=== PATIENT | female | born 1990 | race Two or more races ===

== ENCOUNTER 2016-09-26 15:13 | Outpatient (CLI) | payer MEDICAID ==
--- NOTE | 2016-09-26 16:01 | L&D Flow Sheet ---
LD Flowsheet Datetime Report Generated by CPN: 09/26/2016 16:00 Datetime: 09/26/2016 15:57 Vital Signs NBP Sys/Raya/Mean (mmHg): 123 (QS system process) : 68 (QS system process) : 90 (QS system process) Pulse: 82 (QS system process) Datetime: 09/26/2016 15:42 Vital Signs NBP Sys/Raya/Mean (mmHg): 132 (QS system process) : 83 (QS system process) : 102 (QS system process) Pulse: 89 (QS system process)
[2016-09-26 16:02] LABS: ABSOLUTE EOSINOPHILS # (AUTO) 0.1 10^3/uL (0.0-0.6); ABSOLUTE LYMPHOCYTES (AUTO) 1.8 10^3/uL (0.5-4.7); ABSOLUTE MONOCYTES (AUTO) 0.7 10^3/uL (0.1-1.4); BASOPHILS % (AUTO) 0.2 % (0-2); EOSINOPHILS % (AUTO) 1.2 % (0-6); HEMATOCRIT 32.6 % (36.0-47.0); HEMOGLOBIN 11.4 g/dL (12.0-15.5); HGB HCT DIFFERENCE 1.6; LYMPHOCYTES % (AUTO) 20.8 % (13-45); MEAN CORPUSCULAR HEMOGLOBIN 31.7 pg (27.0-33.4); MEAN CORPUSCULAR HGB CONC 34.9 g/dL (32.0-36.0); MEAN CORPUSCULAR VOLUME 91 fl (80-97); MONOCYTES % (AUTO) 8.1 % (3-13); RED BLOOD COUNT 3.59 10^6/uL (3.72-5.28); RED CELL DISTRIBUTION WIDTH 13.6 % (11.5-14.0); SEGMENTED NEUTROPHILS % (AUTO) 69.7 % (42-78); WHITE BLOOD COUNT 8.6 10^3/uL (4.0-10.5)
[2016-09-26 16:02] LABS: APPEARANCE,URINE CLOUDY; BILIRUBIN,URINE NEGATIVE (NEGATIVE); GLUCOSE, URINE NEGATIVE (NEGATIVE); KETONES,URINE NEGATIVE (NEGATIVE); LEUKOCYTE ESTERASE,URINE MODERATE (NEGATIVE); NITRITE,URINE NEGATIVE (NEGATIVE); PROTEIN,URINE NEGATIVE (NEGATIVE); URINE SPECIFIC GRAVITY 1.008; UROBILINOGEN,URINE NEGATIVE mg/dL (<2.0)
[2016-09-26 16:16] LABS: ALANINE AMINOTRANSFERASE 29 U/L (9-52); ALBUMIN 3.4 g/dL (3.5-5.0); ALKALINE PHOSPHATASE 158 U/L (38-126); ANION GAP 10 (5-19); ASPARTATE AMINO TRANSFERASE 22 U/L (14-36); BILIRUBIN,TOTAL 0.6 mg/dL (0.2-1.3); BLOOD UREA NITROGEN 11 mg/dL (7-20); CALCIUM 8.7 mg/dL (8.4-10.2); CARBON DIOXIDE 19 mmol/L (22-30); CHLORIDE 107 mmol/L (98-107); CREATININE RESULT 0.52 mg/dL (0.52-1.25); GLUCOSE 112 mg/dL (75-110); LDH 373 U/L (313-618); POTASSIUM 3.8 mmol/L (3.6-5.0); SODIUM 136.1 mmol/L (137-145); TOTAL PROTEIN 6.4 g/dL (6.3-8.2); URIC ACID 5.8 mg/dL (2.5-6.2)
[2016-09-26 16:27] LABS: URINE BARBITURATES SCREEN NEGATIVE; URINE METHADONE SCREEN NEGATIVE; URINE OPIATES LOW NEGATIVE; URINE PHENCYCLIDINE SCREEN NEGATIVE
== END 2016-09-26 17:03 | disposition home or self-care (01) ==
LOC: LC 15:13
PROVIDERS: ATTEND Obstetrics & Gynecology
PROC: 4A1HXCZ Monitoring of Products of Conception, Cardiac Rate, External Approach (ICD-10-PCS; principal; 2016-09-26)
DX: O16.3 Unspecified maternal hypertension, third trimester (principal); Z3A.37 37 weeks gestation of pregnancy
CPT/HCPCS: 36415; 59025; 80053; 80307; 81005; 83615; 84550; 85025

== ENCOUNTER 2016-09-28 00:16 | Outpatient (CLI) | payer MEDICAID ==
[2016-09-28] MEDS ORDERED: MAG HYDROX/AL HYDROX/SIMETH SUSP 30 ML UDCUP PO ONE (01:30)
[2016-09-28] MEDS ORDERED: MAG HYDROX/AL HYDROX/SIMETH SUSP 30 ML UDCUP ONE (01:36)
[2016-09-28 01:50] LABS: APPEARANCE,URINE CLEAR; BILIRUBIN,URINE NEGATIVE (NEGATIVE); GLUCOSE, URINE NEGATIVE (NEGATIVE); KETONES,URINE NEGATIVE (NEGATIVE); LEUKOCYTE ESTERASE,URINE SMALL (NEGATIVE); NITRITE,URINE NEGATIVE (NEGATIVE); PROTEIN,URINE NEGATIVE (NEGATIVE); URINE SPECIFIC GRAVITY 1.006; UROBILINOGEN,URINE NEGATIVE mg/dL (<2.0)
[2016-09-28 02:05] LABS: URINE BARBITURATES SCREEN NEGATIVE; URINE METHADONE SCREEN NEGATIVE; URINE OPIATES LOW NEGATIVE; URINE PHENCYCLIDINE SCREEN NEGATIVE
--- NOTE | 2016-09-28 04:46 | L&D General Admission ---
General Admit Datetime Report Generated by CPN: 09/28/2016 04:45 INFORMATION Para: 2 (08/20/2016 16:00:Suni Bellavance, RNC) Baby, Number in Womb: 1 (08/20/2016 16:00:Suni Bellavance, RNC) CARE Height (in): 62 (09/28/2016 01:47:QS system process) Height (in): 62 (09/26/2016 15:56:QS system process) Height (in): 62 (09/26/2016 15:55:QS system process) Height (in): 62 (09/26/2016 15:40:QS system process) Height (in): 62 (09/26/2016 15:37:QS system process) Height (in): 63 (08/20/2016 15:48:QS system process) Height (in): 63 (08/20/2016 14:50:QS system process) ALLERGIES Medication Allergies: iodine (09/28/2016) (09/28/2016 01:46:QS system process) Medication Allergies: No Known Allergies (09/26/2016) (09/26/2016 15:36:QS system process) DEMOGRAPHICS Address: , [facility] [employer] [place] [address] (08/20/2016 12:51:QS system process) Zipcode: [address] (08/20/2016 12:51:QS system process) Home (08/20/2016 12:51:QS system process) Next of Kin Name: ROMA MINOR (08/20/2016 12:51:QS system process) Next of Kin (08/20/2016 12:51:QS system process) Next of Kin Relationship: MO (08/20/2016 12:51:QS system process) Episcopal: None (08/20/2016 12:51:QS system process) LABS Hemoglobin: 11.4 L (09/26/2016 15:55:QS system process) Hematocrit: 32.6 L (09/26/2016 15:55:QS system process) MCV: 91 (09/26/2016 15:55:QS system process)
--- NOTE | 2016-09-28 04:46 | Antepartum Discharge Summary ---
Antepartum DC Datetime Report Generated by CPN: 09/28/2016 04:45 DIET/ACTIVITY/RESTRICTIONS Diet: Regular (09/26/2016 16:59:Booker Ridge, RN) Activity: Normal Activity (09/26/2016 16:59:Booker Ridge, RN) Activity Restrictions: No Exercising (09/26/2016 16:59:Booker Ridge, RN) TEACHING/INSTRUCTIONS/REFERRALS Instructions Given To: pt (09/26/2016 16:59:Booker Ridge, RN) Instructions Understood: Patient Verbalized Understanding; Support Person Verbalized Understanding (09/26/2016 16:59:Booker Sabillon RN) Referrals: None (09/26/2016 16:59:Booker Sabillon RN) Educational Materials- Other: [employer] (09/26/2016 16:59:Booker Sabillon RN) DISCHARGE INFORMATION Discharged AMA: No (09/26/2016 16:59:Booker Sabillon RN) Discharge Date/Time: 09/26/2016 17:02 (09/26/2016 16:59:Booker Sabillon RN) Discharged To: Home (09/26/2016 16:59:Booker Sabillon RN) Discharge Provider Name: Victor Manuel (09/26/2016 16:59:Booker Sabillon RN) Accompanied By: family (09/26/2016 16:59:Booker Sabillon RN) Discharge Method: Ambulatory (09/26/2016 16:59:Booker Sabillon RN) Condition: Stable (09/26/2016 16:59:Booker Sabillon RN) FOLLOW UP INFORMATION Follow Up With: [facility] (09/26/2016 16:59:Booker Sabillon RN) Follow Up On: As Scheduled (09/26/2016 16:59:Booker Sabillon RN) Follow Up Phone Number: [facility] - (09/26/2016 16:59:Booker Sabillon RN) Comments: Pt discharged home ambulatory in no distress, no complaints noted, seed cleaner agrees with discharge. Understands to keep appointment Friday as scheduled, s/s to report, when to return to hospital for evaluation. (09/26/2016 16:59:Booker Sabillon RN) GENERAL INSTR-CALL PROVIDER IF: Contractions: Contractions or cramps become more frequent than 8 in one hour or 4 in 20 minutes; Regular painful contractions every 5 minutes or less for one hour. Time your contractions from the beginning of one to the beginning of the next (09/26/2016 16:59:Booker Sabillon RN) Pressure: Pressure in your vagina or lower abdomen that may feel like the baby is pushing down (09/26/2016 16:59:Booker Sabillon RN) Period Like Cramps: Period-like cramps or low dull backache that may come and go (09/26/2016 16:59:Booker Sabillon RN) Cramps/Diarrhea: Abdominal cramps that may be accompanied by diarrhea (09/26/2016 16:59:Booker Sabillon RN) Gush of Fluid/Blood: Gush of fluid or blood from your vagina (it is normal to have spotting after vaginal exam or intercourse) (09/26/2016 16:59:Booker Sabillon RN) Vaginal Discharge: Change in the type or amount of vaginal discharge (09/26/2016 16:59:Booker Sabillon RN) Decreased Movement: Your baby is not moving as much as usual- 4 movements in 1 hour after drinking and resting on side (09/26/2016 16:59:Booker Sabillon RN) Temperature: Temperature greater than 100.0(F) orally (09/26/2016 16:59:Booker Sabillon RN) Hypertension Signs/Symptoms: Severe headache which is not relieved 30 minutes after taking Tylenol(Acetaminophen); Blurry vision or spots before your eyes; Severe heartburn or pain on the upper right side of your abdomen that is not relieved by an antacid; Increased swelling in your face, hands or feet (09/26/2016 16:59:Booker Sabillon RN) Urinary Output: Decreased urinary output or dark colored urine (09/26/2016 16:59:Booker Sabillon RN) ADDITIONAL INSTRUCTIONS N/V [place]/Crackers: Keep dry toast/crackers with you to munch on (09/26/2016 16:59:Booker Sabillon RN) N/V Frequent Meals: Eat small frequent meals (09/26/2016 16:59:Booker Sabillon RN) N/V Empty Stomach: Try to keep something in your stomach (don't let your stomach get empty) (09/26/2016 16:59:Booker Sabillon RN) N/V Time Getting Up: Take your time getting up (09/26/2016 16:59:Booker Sabillon RN) N/V Avoid Smells: Avoid smells that make you feel sick (09/26/2016 16:59:Booker Sabillon RN) Travel Seatbelts: Wear seatbelts or safety/lap belts (09/26/2016 16:59:Booker Sabillon RN) Travel Walk Frequently: Walk frequently, every 1-2 hours (09/26/2016 16:59:Booker Sabillon RN) Travel Comfort Clothes: Wear clothing that does not constrict and comfortable shoes (09/26/2016 16:59:Booker Sabillon RN) Travel Light Snack: Keep a light snack (e.g. dry crackers) with you at all times to prevent nausea (09/26/2016 16:59:Booker Sabillon RN) Travel Hydration: Drink plenty of water, low sodium and noncaffeinated drinks (09/26/2016 16:59:Booker Sabillon RN) Travel Medications: DO NOT take any medication that is not approved by your physician first (09/26/2016 16:59:Booker Sabillon RN) Travel PN Records: Always keep a copy of your medical record with you just in case (09/26/2016 16:59:Booker Sabillon RN) Edema Avoid Standing: Avoid standing for long periods, keep legs up when you can (09/26/2016 16:59:Booker Sabillon RN) Edema Rest on Side: When resting, lie on your side (left is best) (09/26/2016 16:59:Booker Sabillon RN) Edema Limit Sodium: Limit the amount of salty foods you eat (09/26/2016 16:59:Booker Sabillon RN) Edema Support Hose: Try to wear support hose as much as possible (09/26/2016 16:59:Booker Sabillon RN) Exercise Overheating: Avoid situations that would cause you to become overheated (09/26/2016 16:59:Booker Sabillon RN) Exercise Weather: Exercise outdoors only if the weather is reasonable and not too hot (09/26/2016 16:59:Booker Sabillon RN) Exercise Exertion: Do not over exert yourself when you exercise (09/26/2016 16:59:Booker Sabillon RN) Exercise Hydration: Drink plenty of fluids, especially water (09/26/2016 16:59:Booker Sabillon RN) Exercise Support: Wear good support hose, bra and shoes when exercising (09/26/2016 16:59:Booker Sabillon RN) Varicose Veins Instructions: Do not stand for long periods of time (09/26/2016 16:59:Booker Sabillon RN) Varicose Veins Elevate Sit: Try to keep your legs elevated when you are sitting (09/26/2016 16:59:Booker Sabillon RN) Varicose Veins Elevate Lying: When lying down, keep your legs elevated (09/26/2016 16:59:Booker Sabillon RN) Varicise Veins Non Binding: When wearing stockings or socks, make sure they are not too tight and bind your legs (09/26/2016 16:59:Booker Sabillon RN) Varicose Veins Support: Wear support hose/stockings at all times (09/26/2016 16:59:Booker Sabillon RN) Varicose Veins Periodic Move: If you have a job where you sit a lot, get up periodically and walk around (09/26/2016 16:59:Booker Sabillon RN)
--- NOTE | 2016-09-28 04:46 | L&D Current Admission ---
Current Admit Datetime Report Generated by CPN: 09/28/2016 04:45 ADMISSION INFORMATION Chief Complaint: Contractions (09/28/2016 00:35:Jordyn Medina RN) Chief Complaint: PIH workup from provider office (09/26/2016 16:06:Mesha Parham RN)
--- NOTE | 2016-09-28 04:46 | L&D Discharge Summary ---
OB Discharge Summary Datetime Report Generated by CPN: 09/28/2016 04:45 DISCHARGE DIAGNOSIS Diagnosis/Symptoms: Other Diagnoses/Symptoms Other: Hypertension in Treatment/Procedures Other: Labwork Gestation: 38.5 Number of Babies in Womb: 1 Parity: 2 DIET/ACTIVITY/RESTRICTIONS Diet: Regular Activity: Normal Activity Activity Restrictions: No Exercising TEACHING/INSTRUCTIONS/REFERRALS Instructions Given To: pt Instructions Understood: Patient Verbalized Understanding; Support Person Verbalized Understanding Referrals: None Educational Materials- Other: [employer] DISCHARGE INFORMATION Discharged AMA: No Discharge Date/Time: 09/26/2016 17:02 Discharged To: Home Discharge Provider Name: Rush Accompanied By: family Discharge Method: Ambulatory Condition: Stable FOLLOW UP INFORMATION Follow Up With: [facility] Follow Up On: As Scheduled Follow Up Phone Number: [facility] - Comments: Pt discharged home ambulatory in no distress, no complaints noted, parts counter salesperson agrees with discharge. Understands to keep appointment [place] as scheduled, s/s to report, when to return to hospital for evaluation. GENERAL INSTR-CALL PROVIDER IF: Contractions: Contractions or cramps become more frequent than 8 in one hour or 4 in 20 minutes; Regular painful contractions every 5 minutes or less for one hour. Time your contractions from the beginning of one to the beginning of the next Pressure: Pressure in your vagina or lower abdomen that may feel like the baby is pushing down Period Like Cramps: Period-like cramps or low dull backache that may come and go Cramps/Diarrhea: Abdominal cramps that may be accompanied by diarrhea Gush of Fluid/Blood: Gush of fluid or blood from your vagina (it is normal to have spotting after vaginal exam or intercourse) Vaginal Discharge: Change in the type or amount of vaginal discharge Decreased Movement: Your baby is not moving as much as usual- 4 movements in 1 hour after drinking and resting on side Temperature: Temperature greater than 100.0(F) orally
--- NOTE | 2016-09-28 04:46 | L&D Admission Assessment ---
LD ADM ASMT Datetime Report Generated by CPN: 09/28/2016 04:45 PATIENT ASSESSMENT Assessment Type: Triage (09/28/2016 00:35:Jordyn Medina, RN) Assessment Type: Triage (09/26/2016 16:06:Mesha Dione, RN) WEIGHT Weight (lb): 178 (09/28/2016 01:47:QS system process) Weight (lb): 176 (09/26/2016 15:56:QS system process) Weight (lb): 176 (09/26/2016 15:55:QS system process) Weight (lb): 176 (09/26/2016 15:40:QS system process) Weight (lb): 176 (09/26/2016 15:37:QS system process) Weight (kg): 80.9 (09/28/2016 01:47:QS system process) Weight (kg): 80.0 (09/26/2016 15:56:QS system process) Weight (kg): 80.0 (09/26/2016 15:55:QS system process) Weight (kg): 80.0 (09/26/2016 15:40:QS system process) Weight (kg): 80.0 (09/26/2016 15:37:QS system process) BMI: 32.6 (09/28/2016 01:47:QS system process) BMI: 32.2 (09/26/2016 15:56:QS system process) BMI: 32.2 (09/26/2016 15:55:QS system process) BMI: 32.2 (09/26/2016 15:40:QS system process) BMI: 31.2 (09/26/2016 15:37:QS system process) PAIN Pain Scale: 2 (09/28/2016 00:35:Jordyn Medina RN) Pain Scale: 1 (09/26/2016 16:06:Mesha Parham RN) Pain Presence: Intermittent (09/28/2016 00:35:Jordyn Medina RN) Pain Presence: Constant (09/26/2016 16:06:Mesha Parham RN) Pain Type: Contraction (09/28/2016 00:35:Jordyn Medina RN) Pain Type: Burning (09/26/2016 16:06:Mesha Parham RN) Pain Location: Abdomen (09/28/2016 00:35:Jordyn Medina RN) Pain Location: Other (Annotations: burning with urination) (09/26/2016 16:06:Mesha Parham RN) Pain Goal: 1 (09/26/2016 16:06:Mesha Parham RN) Pain Related to Contraction: Yes (09/28/2016 00:35:Jordyn Medina RN) Pain Related to Contraction: No (09/26/2016 16:06:Mesha Parham RN) CONTRACTIONS Frequency (min): x1 (09/28/2016 02:21:Jordyn Medina RN) Frequency (min): rare (09/28/2016 02:21:Jordyn Medina RN) Frequency (min): rare (09/28/2016 01:30:Jordyn Medina RN) Frequency (min): rare (09/28/2016 01:01:Jordyn Medina RN) Frequency (min): constant, frequent, maybe every 1-2 minutes unsure (09/28/2016 00:35:Jordyn Medina RN) Frequency (min): none (09/26/2016 16:52:Mesha Parham RN) Duration (sec): 70 (09/28/2016 02:21:Jordyn Medina RN) Duration (sec): 80-90 (09/28/2016 02:21:Jordyn Medina RN) Duration (sec): 40-50 (09/28/2016 02:01:Jordyn Medina RN) Duration (sec): 50-70 (09/28/2016 01:30:Jordyn Medina RN) Duration (sec): 50-80 (09/28/2016 01:01:Jordyn Medina RN) Quality: Mild (09/28/2016 02:21:Jordyn Medina RN) Quality: Mild (09/28/2016 02:01:Jordyn Medina RN) Quality: Mild (09/28/2016 01:30:Jordyn Medina RN) Quality: Mild (09/28/2016 01:01:Jordyn Medina RN) Resting Tone Monon: Relaxed (09/28/2016 02:21:Jordyn Medina RN) Resting Tone Monon: Relaxed (09/28/2016 02:01:Jordyn Medina RN) Resting Tone Monon: Relaxed (09/28/2016 01:30:Jordyn Medina RN) Resting Tone Monon: Relaxed (09/28/2016 01:01:Jordyn Medina RN) Resting Tone Monon: Relaxed (09/26/2016 16:52:Mesha Parham RN) Contraction Comments: Patient denies feeling contractions; none noted (09/26/2016 16:52:Mesha Parham RN) VAGINAL EXAM Dilatation (cm): patient deferred drug screen stating that she felt better (09/28/2016 02:00:Jordyn Medina RN) Dilatation (cm): 2.0 (09/28/2016 00:38:Jordyn Medina RN) Effacement (%): 50 (09/28/2016 00:38:Jordyn Medina RN) Station: -2 (09/28/2016 00:38:Jordyn Medina RN) NEURO Level of Consciousness: Patient responds after multiple prompts. EMS states that they felt patient may be on drugs due to patients pinpoint pupils and the way patient talks. Slow speech, patient keeps eyes closed for most of interaction. (09/28/2016 00:35:Jordyn Medina RN) Level of Consciousness: Fully Conscious (09/26/2016 16:06:Mesha Parham RN) DTR's/Clonus: DTRs 2+; No Clonus (09/28/2016 00:35:Jordyn Medina RN) DTR's/Clonus: DTRs 2+; No Clonus (09/26/2016 16:06:Mesha Parham RN) Headache: Denies (09/28/2016 00:35:Jordyn Medina RN) Headache: Denies (09/26/2016 16:06:Mesha Parham RN) Dizziness: No (09/28/2016 00:35:Jordyn Medina RN) Dizziness: No (09/26/2016 16:06:Mesha Parham RN) Blurred Vision: No (Annotations: pupils are pinpoint on assessment) (09/28/2016 00:35:Jordyn Medina RN) Blurred Vision: Yes (Annotations: reports blurry vision earlier today @ 1400 but has since resolved) (09/26/2016 16:06:Mesha Parham RN) Extremity Numbness/Tingling : None (09/28/2016 00:35:Jordyn Medina RN) Extremity Numbness/Tingling : None (09/26/2016 16:06:Mesha Parham RN) Extremity Movement: Full Range of Motion (09/28/2016 00:35:Jordyn Medina RN) Extremity Movement: Full Range of Motion (09/26/2016 16:06:Mesha Parham RN) CARDIOVASCULAR Heart Rhythm: Regular (Annotations: normal s1s2 on auscultation with no evidence of murmur ) (09/28/2016 00:35:Jordyn Medina RN) Heart Rhythm: Regular (09/26/2016 16:06:Mesha Parham RN) Nailbeds: [place] (09/28/2016 00:35:Jordyn Medina RN) Nailbeds: [place] (09/26/2016 16:06:Mesha Parham RN) Capillary Refill: Less than 3 Seconds (09/28/2016 00:35:Jordyn Medina RN) Capillary Refill: Less than 3 Seconds (09/26/2016 16:06:Mesha Parham RN) Lower Extremities Edema: None (09/28/2016 00:35:Jordyn Medina RN) Lower Extremities Edema: None (09/26/2016 16:06:Mesha Parham RN) Lower Extremities Edema Degree: None (09/28/2016 00:35:Jordyn Medina RN) Lower Extremities Edema Degree: None (09/26/2016 16:06:Mesha Parham RN) Upper Extremities Edema: None (09/28/2016 00:35:Jordyn Medina RN) Upper Extremities Edema: None (09/26/2016 16:06:Mesha Parham RN) Upper Extremities Edema Degree: None (09/28/2016 00:35:Jordyn Medina RN) Upper Extremities Edema Degree: None (09/26/2016 16:06:Mesha Parham RN) Facial Edema: None (09/28/2016 00:35:Jordyn Medina RN) Facial Edema: None (09/26/2016 16:06:Mesha Parham RN) Deborah's Sign Left Leg: Negative (09/28/2016 00:35:Jordyn Medina RN) Deborah's Sign Left Leg: Negative (09/26/2016 16:06:Mesha Parham RN) Deborah's Sign Right Leg: Negative (09/28/2016 00:35:Jordyn Medina RN) Deborah's Sign Right Leg: Negative (09/26/2016 16:06:Mesha Parham RN) DVT RISK ASSESSMENT DVT Risk Age: Age less than 41 years (09/28/2016 00:35:Jordyn Medina RN) DVT Risk Age: Age less than 41 years (09/26/2016 16:06:Mesha Parham RN) DVT Risk BMI: BMI<31 (09/26/2016 16:06:Mesha Parham RN) DVT Risk Surgery: Laparoscopic Surgery (>60 minutes) (09/26/2016 16:06:Mesha Parham RN) DVT Risk Other: Women Only- or (<1 month) (09/26/2016 16:06:Mesha Parham RN) DVT Risk Total: 3 (09/26/2016 16:06:QS system process) DVT Risk Text: High Risk (20-40%)- Consider stockings, compresssion device, pharmacological therapy per hospital policy (09/26/2016 16:06:QS system process) RESPIRATORY Respiratory Effort: Unlabored; Regular Rhythm; Equal Expansion (09/28/2016 00:35:Jordyn Medina RN) Respiratory Effort: Unlabored; Regular Rhythm (09/26/2016 16:06:Mesha Parham RN) Breath Sounds, Left: Clear and Equal (09/28/2016 00:35:Jordyn Medina RN) Breath Sounds, Left: Clear and Equal (09/26/2016 16:06:Mesha Parham RN) Breath Sounds, Right: Clear and Equal (09/28/2016 00:35:Jordyn Medina RN) Breath Sounds, Right: Clear and Equal (09/26/2016 16:06:Mesha Parham RN) Cough Productivity: None (09/28/2016 00:35:Jordyn Medina RN) Cough Productivity: None (09/26/2016 16:06:Mesha Parham RN) GASTROINTESTINAL Nausea/Vomiting: Denies (09/28/2016 00:35:Jordyn Medina RN) Nausea/Vomiting: Denies (09/26/2016 16:06:Mesha Parham RN) Bowel Sounds: Normoactive; All Quadrants (09/28/2016 00:35:Jordyn Medina RN) Bowel Sounds: Normoactive; All Quadrants (09/26/2016 16:06:Mesha Parham RN) RUQ Epigastric Pain: Denies (09/28/2016 00:35:Jordyn Medina RN) RUQ Epigastric Pain: Denies (09/26/2016 16:06:Mseha Parham RN) Bowel Patterns: Soft, Formed Stool (09/28/2016 00:35:Jordyn Medina RN) Bowel Patterns: Soft, Formed Stool (09/26/2016 16:06:Mesha Parham RN) Hemorrhoids: None (09/28/2016 00:35:Jordyn Medina RN) Hemorrhoids: None (09/26/2016 16:06:Mesha Parham RN) Diet Type: Regular diet (09/28/2016 00:35:Jordyn Medina RN) Diet Type: Regular diet (09/26/2016 16:06:Mesha Parham RN) Last Meal: 09/27/2016 20:00 (09/28/2016 00:35:Jordyn Medina RN) Last Meal: 09/26/2016 15:30 (09/26/2016 16:06:Mesha Parham RN) GENITOURINARY Bladder: Nondistended (09/28/2016 00:35:Jordyn Medina RN) Bladder: Nondistended (09/26/2016 16:06:Mesha Parham RN) Frequency of Urination: No (09/28/2016 00:35:Jordyn Medina RN) Frequency of Urination: No (09/26/2016 16:06:Mesha Parham RN) Urination Burning: Yes (09/28/2016 00:35:Jordyn Medina RN) Urination Burning: Yes (09/26/2016 16:06:Mesha Parham RN) CVA Tenderness: No (09/28/2016 00:35:Jordyn Medina RN) CVA Tenderness: No (09/26/2016 16:06:Mesha Parham RN) Vaginal Bleeding: None (09/28/2016 00:35:Jordyn Medina RN) Vaginal Discharge Amount: Small (09/28/2016 00:35:Jordyn Medina RN) Vaginal Discharge Amount: None (09/26/2016 16:06:Mesha Parham RN) Vaginal Discharge Color: White (09/28/2016 00:35:Jordyn Medina RN) Vaginal Discharge Color: N/A (09/26/2016 16:06:Mesha Parham RN) Vaginal Discharge Odor: Non-Odorous (09/28/2016 00:35:Jordyn Medina RN) Vaginal Discharge Character: Thin (09/28/2016 00:35:Jordyn Medina RN) Vaginal Discharge Character: None (09/26/2016 16:06:Mesha Parham RN) INTEGUMENTARY Skin Color: Normal for Race (09/28/2016 00:35:Jordyn Medina RN) Skin Color: Normal for Race (09/26/2016 16:06:Mesha Parham RN) Skin Temperature: Warm (09/28/2016 00:35:Jordyn Medina RN) Skin Temperature: Warm (09/26/2016 16:06:Mesha Parham RN) Skin Moisture: Dry (09/28/2016 00:35:Jordny Medina RN) Skin Moisture: Dry (09/26/2016 16:06:Mesha Parham RN) Surgical Scars: appy scar (09/28/2016 00:35:Jordyn Medina RN) Body Piercings/Tattoos: tattoos- 5 piercings- belly button (09/28/2016 00:35:Jordyn Medina RN) NAYELI SKIN ASSESSMENT Nayeli Scale Sensory Perception: No Impairment- Responds to verbal commands. Has no sensory deficit which would limit ability to feel or voice pain or discomfort (09/28/2016 00:35:Jordyn Medina RN) Nayeli Scale Sensory Perception: No Impairment- Responds to verbal commands. Has no sensory deficit which would limit ability to feel or voice pain or discomfort (09/26/2016 16:06:Mesha Parham RN) Nayeli Scale Moisture: Rarely Moist- Skin is usually dry. Linen only requires changing at routine intervals (09/28/2016 00:35:Jordyn Medina RN) Nayeli Scale Moisture: Rarely Moist- Skin is usually dry. Linen only requires changing at routine intervals (09/26/2016 16:06:Mesha Parham RN) Nayeli Scale Activity: Walks Frequently- Walks outside the room at least twice a day and inside room at least every 2 hours during the day. (09/28/2016 00:35:Jordyn Medina RN) Nayeli Scale Activity: Walks Frequently- Walks outside the room at least twice a day and inside room at least every 2 hours during the day. (09/26/2016 16:06:Mesha Parham RN) Nayeli Scale Mobility: No Limitations- Makes major and frequent changes in position without assistance (09/28/2016 00:35:Jordyn Medina RN) Nayeli Scale Mobility: No Limitations- Makes major and frequent changes in position without assistance (09/26/2016 16:06:Mesha Parham RN) Nayeli Scale Nutrition: Excellent- Eats most of every meal. Never refuses a meal. Usually eats a total of 4 or more servings of meat and dairy products. Occasionally eats between meals. Does not require supplementation (09/28/2016 00:35:Jordyn Medina RN) Nayeli Scale Nutrition: Excellent- Eats most of every meal. Never refuses a meal. Usually eats a total of 4 or more servings of meat and dairy products. Occasionally eats between meals. Does not require supplementation (09/26/2016 16:06:Mesha Parham RN) Nayeli Scale Friction and Shear: No Apparent Problem- Moves in bed and in chair independently and has sufficient muscle strength to lift up completely during move. Maintains good position in bed or chair at all times (09/28/2016 00:35:Jordyn Medina RN) Nayeli Scale Friction and Shear: No Apparent Problem- Moves in bed and in chair independently and has sufficient muscle strength to lift up completely during move. Maintains good position in bed or chair at all times (09/26/2016 16:06:Mesha Parham RN) Nayeli Scale Total: 23 (09/28/2016 00:35:QS system process) Nayeli Scale Total: 23 (09/26/2016 16:06:QS system process) Nayeli Scale Risk: No Risk of Pressure Ulcer Noted at this Time (09/28/2016 00:35:QS system process) Nayeli Scale Risk: No Risk of Pressure Ulcer Noted at this Time (09/26/2016 16:06:QS system process) SUPPORT Family Support: Significant Other supportive, at bedside frequently (09/28/2016 00:35:Jordyn Medina RN) Family Support: Significant Other supportive, at bedside frequently; Family supportive (09/26/2016 16:06:Mesha Parham RN) Emotional State: Other (09/28/2016 00:35:Jordyn Medina RN) Emotional State: Calm/Relaxed (09/26/2016 16:06:Mesha Parham RN) SAFETY Call Cronin Within Reach: Yes (09/28/2016 00:35:Jordyn Medina RN) Call Cronin Within Reach: Yes (09/26/2016 16:06:Mesha Parham RN) Side Rails Up: Yes (09/28/2016 00:35:Jordyn Medina RN) Side Rails Up: Yes (09/26/2016 16:06:Mesha Parham RN) Bed Wheels Locked: Yes (09/28/2016 00:35:Jordyn Medina RN) Bed Wheels Locked: Yes (09/26/2016 16:06:Mesha Parham RN) Arm Bands Present: Yes (09/28/2016 00:35:Jordyn Medina RN) Arm Bands Present: Yes (09/26/2016 16:06:Mesha Parham RN) Isolation: [place] (09/28/2016 00:35:Jordyn Medina RN) Isolation: [place] (09/26/2016 16:06:Mesha Parham RN) FALL SCREEN Fall Risk History of Falling: (0) No (09/28/2016 00:35:Jordyn Medina RN) Fall Risk History of Falling: (0) No (09/26/2016 16:06:Mesha Parham RN) Fall Risk Secondary Diagnosis: (0) No (09/28/2016 00:35:Jordyn Medina RN) Fall Risk Secondary Diagnosis: (0) No (09/26/2016 16:06:Mesha Parham RN) Fall Risk Ambulatory Aid: (0) None/Bedrest/Wheelchair/Nurse Assist (09/28/2016 00:35:Jordyn Medina RN) Fall Risk Ambulatory Aid: (0) None/Bedrest/Wheelchair/Nurse Assist (09/26/2016 16:06:Mesha Parham RN) Fall Risk IV Therapy: (0) No (09/28/2016 00:35:Jordyn Medina RN) Fall Risk IV Therapy: (0) No (09/26/2016 16:06:Mesha Parham RN) Fall Risk Gait: (0) Normal/Bedrest/Immobile (09/28/2016 00:35:Jordyn Medina RN) Fall Risk Gait: (0) Normal/Bedrest/Immobile (09/26/2016 16:06:Mesha Parham RN) Fall Risk Mental Status: (0) Oriented to Own Ability (09/28/2016 00:35:Jordyn Medina RN) Fall Risk Mental Status: (0) Oriented to Own Ability (09/26/2016 16:06:Mesha Parham RN) Fall Risk Score: 0 (09/28/2016 00:35:QS system process) Fall Risk Score: 0 (09/26/2016 16:06:QS system process) Fall Risk Score Definition: No Risk: No action required (09/28/2016 00:35:QS system process) Fall Risk Score Definition: No Risk: No action required (09/26/2016 16:06:QS system process) RECENT TRAVEL/INFECTIOUS DISEASE Recent Exp Communicable Disease: No (09/28/2016 00:35:Jordyn Medina RN) Recent Exp Communicable Disease: No (09/26/2016 16:06:Mesha Parham RN) Cough or Fever: No (09/28/2016 00:35:Jordyn Medina RN) Cough or Fever: No (09/26/2016 16:06:Mesha Parham RN) Foreign Travel Past 10 Days: No (09/28/2016 00:35:Jordyn Medina RN) Foreign Travel Past 10 Days: No (09/26/2016 16:06:Mesha Parham RN) Open Wounds or Sores: No (09/28/2016 00:35:Jordyn Medina RN) Open Wounds or Sores: No (09/26/2016 16:06:Mesha Parham RN) Prior Antibiotic Resistance Tx: No (09/28/2016 00:35:Jordyn Medina RN) Prior Antibiotic Resistance Tx: No (09/26/2016 16:06:Mesha Parham RN) Cultures Obtained: Not Applicable (09/28/2016 00:35:Jordyn Medina RN) Cultures Obtained: Not Applicable (09/26/2016 16:06:Mesha Parham RN) Isolation Initiated: No (09/28/2016 00:35:Jordyn Medina RN) Isolation Initiated: No (09/26/2016 16:06:Mesha Parham RN) Pt/Family Education: Handwashing Hygiene (09/28/2016 00:35:Jordyn Medina RN) Pt/Family Education: Not Applicable (09/26/2016 16:06:Mesha Parham RN) BABY A FHR Baseline Rate (bpm) Baby A: 130 (09/28/2016 02:21:Jordyn Medina RN) FHR Baseline Rate (bpm) Baby A: 125 (09/28/2016 02:01:Jordyn Medina RN) FHR Baseline Rate (bpm) Baby A: 135 (09/28/2016 01:30:Jordyn Medina RN) FHR Baseline Rate (bpm) Baby A: 135 (09/28/2016 01:01:Jordyn Medina RN) FHR Baseline Rate (bpm) Baby A: 130 (09/26/2016 16:52:Mesha Parham RN) FHR Baseline Rate (bpm) Baby A: 135 (09/26/2016 16:06:Mesha Parham RN) Variability Baby A: Moderate 6-25 bpm (09/28/2016 02:21:Jordyn Medina RN) Variability Baby A: Moderate 6-25 bpm (09/28/2016 02:01:Jordyn Medina RN) Variability Baby A: Moderate 6-25 bpm (09/28/2016 01:30:Jordyn Medina RN) Variability Baby A: Moderate 6-25 bpm (09/28/2016 01:01:Jordyn Medina RN) Variability Baby A: Moderate 6-25 bpm (09/26/2016 16:52:Mesha Parham RN) Variability Baby A: Moderate 6-25 bpm (09/26/2016 16:06:Mesha Parham RN) Accelerations Baby A: 15X15 (09/28/2016 02:21:Jordyn Medina RN) Accelerations Baby A: 15X15 (09/28/2016 02:01:Jordyn Medina RN) Accelerations Baby A: 15X15 (09/28/2016 01:30:Jordyn Medina RN) Accelerations Baby A: 15X15 (09/28/2016 01:01:Jordyn Medina RN) Accelerations Baby A: 15X15 (09/26/2016 16:52:Mesha Parham RN) Accelerations Baby A: 15X15 (09/26/2016 16:06:Mesha Parham RN) Decelerations Baby A: None (09/28/2016 02:21:Jordyn Medina RN) Decelerations Baby A: None (09/28/2016 02:01:Jordyn Medina RN) Decelerations Baby A: None (09/28/2016 01:30:Jordyn Mdeina RN) Decelerations Baby A: None (09/28/2016 01:01:Jordyn Medina RN) Decelerations Baby A: None (09/26/2016 16:52:Mesha Parham RN) Decelerations Baby A: None (09/26/2016 16:06:Mesha Parham RN) ADDITIONAL COMMENTS Comments: On arrival from EMS patient was instructed to void in cup for a urine specimen. Patient mumbled something and then said okay. Patient then stated after exiting the bathroom that she forgot about peeing in the cup. Patient was provided with water to drink and encouraged to notify nurse when urge to void. Explained to patient that urine specimen was necessary to ensure that UTI was not worsening and that patient was well hydrated. Patient's speech and appearance are suspicious for questionable drug usage. Patient has history of buying Percocet off the street. Denies using drugs. (09/28/2016 00:35:Jordyn Medina RN)
--- NOTE | 2016-09-28 04:46 | L&D Flow Sheet ---
LD Flowsheet Datetime Report Generated by CPN: 09/28/2016 04:45 Datetime: 09/28/2016 02:28 Additional Nursing Comments: Discharged home in stable condition (Jordyn Medina, RN) Datetime: 09/28/2016 02:21 Monitor Mode: External; Palpation (Jordyn Medina RN) Frequency (min): x1 (Jordyn Medina RN) Frequency (min): rare (Jordyn Medina RN) Quality: Mild (Jordyn Kossmann, RN) Duration (sec): 70 (Jordyn Kossmann, RN) Duration (sec): 80-90 (Jordyn Kossmann, RN) Resting Tone (Palpate): Relaxed (Jordyn Medina, RN) Monitor Mode: External US (Jordyn Medina, RN) FHR Baseline Rate : 130 (Jordyn Diopsmann, RN) Variability: Moderate 6-25 bpm (Jordyn Kossmann, RN) Accelerations: 15X15 (Jordyn Kossmann, RN) Decelerations: None (Jordyn Chikissmann, RN) Datetime: 09/28/2016 02:20 Teaching Comments: Reviewed POC with patient and discussed at length kick counts and early labor signs. Patient is to followup on Friday. Patient states she already has an appointment. Patient appears to be more coherent during discussion than she was on arrival. (Jordynanand Medina, RN) Datetime: 09/28/2016 02:13 NBP Sys/Raya/Mean (mmHg): 126 (QS system process) : 88 (QS system process) : 101 (QS system process) Pulse: 83 (QS system process) LaborFlag: Antepartum (QS system process) Datetime: 09/28/2016 02:10 Communication Comments: Discussed POC with Dr. Wolf. DING aware of RN and EMS concerns that patient may have been taking medications not prescribed in pregancy due to patient speech, actions, and assessment. Patient has history of prescription drug abuse during . Reviewed negative drug screen, UA results, ctx pattern, and sve. Patient deferred second sve and stated she felt better. Orders received to discharge home but to have patient followup on Friday in the office. (Jordyn Medina RN) Datetime: 09/28/2016 02:01 Monitor Mode: External; Palpation (Jordyn Medina RN) Quality: Mild (Jordyn Medina RN) Duration (sec): 40-50 (Jordyn Medina RN) Resting Tone (Palpate): Relaxed (Jordyn Medina RN) Monitor Mode: External US (Jordyn Medina RN) FHR Baseline Rate : 125 (Jordyn Medina, RN) Variability: Moderate 6-25 bpm (Jordyn Medina, RN) Accelerations: 15X15 (Jordyn Medina, RN) Decelerations: None (Jordyn Medina, RN) Datetime: 09/28/2016 02:00 Dilatation (cm): patient deferred drug screen stating that she felt better (Jordyn Medina, DUNG) Datetime: 09/28/2016 01:53 NBP Sys/Raya/Mean (mmHg): 120 (QS system process) : 75 (QS system process) : 92 (QS system process) Pulse: 76 (QS system process) LaborFlag: Antepartum (QS system process) Datetime: 09/28/2016 01:37 Antiemetics/Antacids: Maalox PO (ml) @ (Annotations: 30ml po) (Jordyn Medina, RN) Datetime: 09/28/2016 01:34 Monitor Interventions for FHR: Ultrasound Adjusted (Jordyn Deepaann, RN) Datetime: 09/28/2016 01:33 NBP Sys/Raya/Mean (mmHg): 129 (QS system process) : 89 (QS system process) : 103 (QS system process) Pulse: 81 (QS system process) LaborFlag: Antepartum (QS system process) Datetime: 09/28/2016 01:32 Patient Care Comments: Urine specimen obtained and sent to lab (Jordyn Medina, RN) Datetime: 09/28/2016 01:30 Monitor Mode: External; Palpation (Jordyn Medina, RN) Frequency (min): rare (Jordyn Adam, RN) Quality: Mild (Jordyn Deepaann, RN) Duration (sec): 50-70 (Jordyn Arenasann, RN) Resting Tone (Palpate): Relaxed (Jordyn Medina, RN) Monitor Mode: External US (Jordyn Adam, RN) FHR Baseline Rate : 135 (Jordyn Medina, RN) Variability: Moderate 6-25 bpm (Jordyn Chikissmann, RN) Accelerations: 15X15 (Jordyn Chikissmann, RN) Decelerations: None (Jordyn Chikissmann, RN) Datetime: 09/28/2016 01:26 I/O Interventions: Up to BR (Jordyn Medina RN) Datetime: 09/28/2016 01:13 NBP Sys/Raya/Mean (mmHg): 126 (QS system process) : 75 (QS system process) : 92 (QS system process) Pulse: 76 (QS system process) LaborFlag: Antepartum (QS system process) Datetime: 09/28/2016 01:01 Monitor Mode: External; Palpation (Jordyn Medina RN) Frequency (min): rare (Jordyn Medina RN) Quality: Mild (Jordyn Median RN) Duration (sec): 50-80 (Jordyn Medina RN) Resting Tone (Palpate): Relaxed (Jordyn Medina RN) Monitor Mode: External US (Jordyn Medina RN) Monitor Interventions for FHR: Ultrasound Adjusted (Jordyn Medina RN) FHR Baseline Rate : 135 (Jordyn Medina RN) Variability: Moderate 6-25 bpm (Jordyn Medina RN) Accelerations: 15X15 (Jordyn Medina RN) Decelerations: None (Jordyn Medina RN) Comments: ultrasound adjusted. patient found sitting with legs up, maternal pulse palpated as 86, maternal pulse was tracing, monitors adjusted. (Jordyn Medina RN) Datetime: 09/28/2016 00:53 NBP Sys/Raya/Mean (mmHg): 132 (QS system process) : 79 (QS system process) : 100 (QS system process) Pulse: 86 (QS system process) Respirations: 18 (Jordyn Medina RN) LaborFlag: Antepartum (QS system process) Datetime: 09/28/2016 00:38 Dilatation (cm): 2.0 (Jordyn Medina RN) Effacement (%): 50 (Jordyn Medina RN) Station: -2 (Jordyn Medina RN) Exam by: DUNG Medina (Jordyn Medina RN) Vaginal Bleeding: None (Jordyn Medina RN) Cervix, Consistency: Moderate (Jordyn Medina RN) Cervix, Position: Midposition (Jordyn Medina RN) Datetime: 09/28/2016 00:35 Frequency (min): constant, frequent, maybe every 1-2 minutes unsure (Jordyn Medina RN) Pain Scale: 2 (Jordyn Medina RN) Pain Presence: Intermittent (Jordyn Medina RN) Pain Type: Contraction (Jordyn Medina RN) Pain Location: Abdomen (Jordyn Medina RN) Pain Relief Measures: Comfort Measures (Jordyn Medina RN) Pain Coping: Talking Through Contractions; Breathing Through Contractions (Jordyn Medina RN) Vaginal Bleeding: None (Jordyn Medina RN) Level of Consciousness: Patient responds after multiple prompts. EMS states that they felt patient may be on drugs due to patients pinpoint pupils and the way patient talks. Slow speech, patient keeps eyes closed for most of interaction. (Jordyn Medina RN) DTR's/Clonus: DTRs 2+; No Clonus (Jordyn Medina RN) Headache: Denies (Jordyn Medina RN) Breath Sounds, Left: Clear and Equal (Jordyn Medina RN) Breath Sounds, Right: Clear and Equal (Jordyn Medina RN) Nausea/Vomiting: Denies (Jordyn Medina RN) RUQ Epigastric Pain: Denies (Jordyn Medina RN) LaborFlag: Antepartum (QS system process) Datetime: 09/28/2016 00:33 NBP Sys/Raya/Mean (mmHg): 128 (QS system process) : 81 (QS system process) : 99 (QS system process) Pulse: 85 (QS system process) LaborFlag: Antepartum (QS system process)
== END 2016-09-28 02:28 | disposition home or self-care (01) ==
LOC: LC 00:16
PROVIDERS: ATTEND Obstetrics & Gynecology
PROC: 4A1HXCZ Monitoring of Products of Conception, Cardiac Rate, External Approach (ICD-10-PCS; principal; 2016-09-28)
DX: O47.1 False labor at or after 37 completed weeks of gestation (principal); Z3A.38 38 weeks gestation of pregnancy
CPT/HCPCS: 59025; 81005; 80307; J3490

== ENCOUNTER 2016-10-10 15:42 | Inpatient (IN) | payer MEDICAID ==
--- NOTE | 2016-10-10 15:53 | Non Stress Test Report ---
Non Stress Test Datetime Report Generated by CPN: 10/10/2016 15:52 DEMOGRAPHIC EGA NST: 38.6 INDICATION Indication for Study: Ordered by Provider Indication for Study (NST) Other: possible labor VITAL SIGNS Temperature - NST: 98.3 Pulse - NST: 83 RESP - NST: 18 NBPSYS NST: 126 NBPDIA NST: 88 URINE RESULTS Urine Protein, NST: Negative Urine Ketones - NST: Negative Urine Glucose - NST: Negative Urine Blood - NST: Negative MONITORING Monitor Explained: Monitor Explained; Test Explained; Patient Verbalized Understanding Time on Monitor: 09/28/2016 00:29 Time off Monitor: 09/28/2016 02:21 NST Duration: 112 NST INTERVENTIONS NST Interventions: PO Hydration BABY A: [id number] BABY A Movement : Present Contraction Frequency : irregular FHR Baseline : 125 Accelerations : 15X15 Decelerations : None Variability : Moderate 6-25bpm NST Review: Meets Criteria for Reactive NST NST Review and Verified By : Chalman, A. RN NST Results: Reactive NST REPORT Report Trigger: Send Report
[2016-10-10] MEDS ORDERED: RINGERS SOLUTION,LACTATED 1,000 ML IV ONE (15:57)
[2016-10-10] MEDS ORDERED: RINGERS SOLUTION,LACTATED 1,000 ML IV PRN (15:57)
[2016-10-10 16:42] LABS: ABSOLUTE EOSINOPHILS # (AUTO) 0.1 10^3/uL (0.0-0.6); ABSOLUTE LYMPHOCYTES (AUTO) 1.8 10^3/uL (0.5-4.7); ABSOLUTE MONOCYTES (AUTO) 0.9 10^3/uL (0.1-1.4); BASOPHILS % (AUTO) 0.2 % (0-2); EOSINOPHILS % (AUTO) 0.9 % (0-6); HEMOGLOBIN 11.5 g/dL (12.0-15.5); HGB HCT DIFFERENCE 0.5; LYMPHOCYTES % (AUTO) 16.8 % (13-45); MEAN CORPUSCULAR HEMOGLOBIN 31.5 pg (27.0-33.4); MEAN CORPUSCULAR VOLUME 93 fl (80-97); MONOCYTES % (AUTO) 8.7 % (3-13); RED BLOOD COUNT 3.66 10^6/uL (3.72-5.28); RED CELL DISTRIBUTION WIDTH 14.3 % (11.5-14.0); SEGMENTED NEUTROPHILS % (AUTO) 73.4 % (42-78); WHITE BLOOD COUNT 10.9 10^3/uL (4.0-10.5)
[2016-10-10 16:57] LABS: APPEARANCE,URINE CLOUDY; BILIRUBIN,URINE NEGATIVE (NEGATIVE); GLUCOSE, URINE NEGATIVE (NEGATIVE); KETONES,URINE NEGATIVE (NEGATIVE); LEUKOCYTE ESTERASE,URINE TRACE (NEGATIVE); NITRITE,URINE NEGATIVE (NEGATIVE); PROTEIN,URINE 30 mg/dL (NEGATIVE); URINE SPECIFIC GRAVITY 1.032; UROBILINOGEN,URINE NEGATIVE mg/dL (<2.0)
[2016-10-10 17:13] LABS: URINE BARBITURATES SCREEN NEGATIVE; URINE METHADONE SCREEN NEGATIVE; URINE OPIATES LOW NEGATIVE; URINE PHENCYCLIDINE SCREEN NEGATIVE
[2016-10-10] MEDS ORDERED: OXYTOCIN/NORMAL SALINE 20 UNIT/1,000 ML RTUINJ ONE (17:57)
[2016-10-10] MEDS ORDERED: ACETAMINOPHEN 325 MG TABLET ONE ×2 (17:57→23:52)
--- NOTE | 2016-10-10 18:00 | L&D Flow Sheet ---
LD Flowsheet Datetime Report Generated by CPN: 10/10/2016 18:00 Datetime: 10/10/2016 17:00 Monitor Mode: External; Palpation (Charo Katherine, RN) Frequency (min): none (Charo Katherine, RN) Resting Tone (Palpate): Relaxed (Charo Katherine, RN) Monitor Mode: External US (Charo Katherine, RN) FHR Baseline Rate : 145 (Charo Katherine, RN) Variability: Moderate 6-25 bpm (Charo Katherine, RN) Accelerations: 15X15 (Charo Katherine, RN) Decelerations: None (Charo Katherine, RN) Datetime: 10/10/2016 16:56 Communication Comments: Order from Dr. Mcdaniel recieved to hold off on starting Pitocin due to high census right now. Order recieved to let pt eat dinner (Charo Katherine, RN) Datetime: 10/10/2016 16:44 Communication Comments: Dr. Mcdaniel on unit, order recieved to begin pitocin on pt starting at 2mu and increasing by 2mu with a max of 20mu q 30 minutes (Charo Katherine, RN) Datetime: 10/10/2016 16:40 Patient Care Comments: 18g inserted into left forearm, infusing without diffculty, pt tolerated procedure well (Charo Katherine, RN) Datetime: 10/10/2016 16:27 NBP Sys/Raya/Mean (mmHg): 137 (QS system process) : 69 (QS system process) : 95 (QS system process) Pulse: 90 (QS system process) LaborFlag: Antepartum (QS system process) Datetime: 10/10/2016 16:22 IV/Blood Work: Labs Drawn (Charo Murphy RN)
[2016-10-10] MEDS ORDERED: MAG HYDROX/AL HYDROX/SIMETH SUSP 30 ML UDCUP ONE (18:10)
--- NOTE | 2016-10-10 20:00 | L&D Flow Sheet ---
LD Flowsheet Datetime Report Generated by CPN: 10/10/2016 20:00 Datetime: 10/10/2016 19:30 Respirations: 18 (Joy Banegas) Monitor Mode: External; Palpation (Joy Banegas) Frequency (min): none (Joy Banegas) Resting Tone (Palpate): Relaxed (Joy Banegas) FHR Baseline Changes: Unable to Determine (Joy Banegas) Comments: rn remains at the bedside for fhr monitor adjustment (Joy Banegas) Patient Position/Activity: Right Extreme (Joy Banegas) LaborFlag: Antepartum (QS system process) Datetime: 10/10/2016 19:20 Level of Consciousness: Fully Conscious (Joy Banegas) DTR's/Clonus: DTRs 2+; No Clonus (Joy Banegas) Headache: Denies (Joy Banegas) Breath Sounds, Left: Clear and Equal (Joy Banegas) Breath Sounds, Right: Clear and Equal (Joy Banegas) Nausea/Vomiting: Denies (Joy Banegas) RUQ Epigastric Pain: Denies (Joy Banegas) Maternal Comments: patient needs ongoing teaching regarding labor process. (Joy Banegas) Pitocin (milliunit): Pitocin Increased to (milliunits) @ (Annotations: 4) (Joy Banegas) Patient Position/Activity: Right Extreme (Joy Banegas) Datetime: 10/10/2016 19:15 Respirations: 18 (Joy Banegas) Monitor Mode: External; Palpation (Joy Banegas) Frequency (min): none (Joy Banegas) Resting Tone (Palpate): Relaxed (Joy Banegas) Comments: rn at the bedside for fhr monitor adjustment (Joy Banegas) Patient Position/Activity: Right Extreme (Joy Banegas) Communication Comments: Report given to Barb Banegas RN, care relinquished at this time (Charo Murphy RN) LaborFlag: Antepartum (QS system process) Datetime: 10/10/2016 19:00 Monitor Mode: External (Charo Katherine, RN) Frequency (min): none (Charo Katherine, RN) Resting Tone (Palpate): Relaxed (Charo Katherine, RN) Monitor Mode: External US (Charo Katherine, RN) FHR Baseline Rate : 135 (Charo Katherine, RN) Variability: Moderate 6-25 bpm (Charo Katherine, RN) Accelerations: 15X15 (Charo Katherine, RN) Decelerations: None (Charo Katherine, RN) Datetime: 10/10/2016 18:54 Communication: RN at Bedside (Charo Katherine, RN) Datetime: 10/10/2016 18:46 Pain Scale: 2 (Charo Katherine, RN) Pain Presence: Constant (Charo Katherine, RN) Pain Type: Ache (Charo Katherine, RN) Pain Relief Measures: Comfort Measures (Charo Katherine, RN) Pain Assessment Comments: lower back, and knee pain (Charo Katherine, RN) LaborFlag: Antepartum (QS system process) Datetime: 10/10/2016 18:45 Monitor Mode: External; Palpation (Charo Katherine, RN) Frequency (min): none (Charo Katherine, RN) Resting Tone (Palpate): Relaxed (Charo Katherine, RN) Monitor Mode: External US (Charo Katherine, RN) FHR Baseline Rate : 145 (Charo Katherine, RN) Variability: Moderate 6-25 bpm (Charo Katherine, RN) Accelerations: None (Charo Katherine, RN) Decelerations: None (Charo Katherine, RN) Datetime: 10/10/2016 18:30 Monitor Mode: External; Palpation (Charo Katherine, RN) Frequency (min): none (Charo Katherine, RN) Resting Tone (Palpate): Relaxed (Charo Katherine, RN) Monitor Mode: External US (Charo Katherine, RN) FHR Baseline Rate : 145 (Charo Katherine, RN) Variability: Moderate 6-25 bpm (Charo Katherine, RN) Accelerations: None (Charo Katherine, RN) Decelerations: None (Charo Katherine, RN) Patient Care Comments: pt sitting up in bed eating (Charo Katherine, RN) Datetime: 10/10/2016 18:15 Monitor Mode: External; Palpation (Charo Katherine, RN) Frequency (min): none (Charo Katherine, RN) Resting Tone (Palpate): Relaxed (Charo Katherine, RN) Monitor Mode: External US (Charo Katherine, RN) FHR Baseline Rate : 140 (Charo Katherine, RN) Variability: Moderate 6-25 bpm (Charo Katherine, RN) Accelerations: 15X15 (Charo Katherine, RN) Decelerations: None (Charo Katherine, RN) Datetime: 10/10/2016 18:11 I/O Interventions: Up to BR (Charo Katherine, RN) Datetime: 10/10/2016 18:10 Medication Comments: MAALOX 30 ML PO (Charo Katherine, RN) Datetime: 10/10/2016 18:02 Pitocin (milliunit): Pitocin Started (milliunits) @ 2 (Charo Katherine, RN) Datetime: 10/10/2016 18:01 Medication Comments: 650mg Tylenol PO (Charo Katherine, RN) Datetime: 10/10/2016 18:00 Monitor Mode: External (Charo Katherine, RN) Frequency (min): none (Charo Katherine, RN) Resting Tone (Palpate): Relaxed (Charo Katherine, RN) Monitor Mode: External US (Charo Aktherine, RN) FHR Baseline Rate : 135 (Charo Katherine, RN) Variability: Moderate 6-25 bpm (Charo Katherine, RN) Accelerations: 15X15 (Charo Katherine, RN) Decelerations: None (Charo Katherine, RN)
--- NOTE | 2016-10-10 22:01 | L&D Flow Sheet ---
LD Flowsheet Datetime Report Generated by CPN: 10/10/2016 22:00 Datetime: 10/10/2016 21:57 Dilatation (cm): 4.0 (Joy Banegas) Effacement (%): 50 (Joy Banegas) Station: -2 (Joy Banegas) Exam by: Dr Mcdaniel (Joy Banegas) Patient Care Comments: Dr Mcdaniel at the bedside for eval of the patient (Joy Banegas) Datetime: 10/10/2016 21:48 Patient Care Comments: patient up to the restroom (Joy Banegas) Datetime: 10/10/2016 21:30 Pitocin (milliunit): Pitocin Increased to (milliunits) @ (Annotations: 12 ) (Joy Banegas) Datetime: 10/10/2016 21:07 Patient Care Comments: patient up to the restroom (Joy Banegas) Datetime: 10/10/2016 21:00 Monitor Mode: External; Palpation (Joy Banegas) Frequency (min): none (Joy Banegas) Resting Tone (Palpate): Relaxed (Joy Banegas) FHR Baseline Changes: Unable to Determine (Joycaity Banegas) Comments: rn remains at the bedside for fhr monitor adjustment and maternal positioning (Joy Banegas) Pitocin (milliunit): Pitocin Increased to (milliunits) @ (Annotations: 10 ) (Joy Banegas) Patient Position/Activity: Left Lateral (Joy Banegas) Patient Care Comments: continued teaching on importance of the monitors and keeping the babys heart rate on the monitor, the patient has a flat affect to teaching and instruction. (Joy Banegas) Datetime: 10/10/2016 20:45 Respirations: 18 (Joy Banegas) Monitor Mode: External; Palpation (Joy Banegas) Frequency (min): none (Joy Banegas) Resting Tone (Palpate): Relaxed (Joy Banegas) FHR Baseline Changes: Unable to Determine (Joy Banegas) Comments: rn remains at the bedside for fhr monitor adjustment maternal repositioning (Joy Banegas) Patient Position/Activity: Left Lateral (Joy Banegas) Patient Care Comments: discussed with the patient the importance of keeping the baby on the monitor with pitocin going, the patient will need further teaching and instruction (Joy Banegas) LaborFlag: Antepartum (QS system process) Datetime: 10/10/2016 20:30 Respirations: 18 (Joy Banegas) Monitor Mode: External; Palpation (Joy Banegas) Monitor Interventions for UA: [place] Adjusted (Joy Banegas) Frequency (min): none (Joy Banegas) Resting Tone (Palpate): Relaxed (Joy Banegas) Comments: rn at the bedside for fhr monitor adjustment (Joy Banegas) Pitocin (milliunit): Pitocin Increased to (milliunits) @ (Annotations: 8) (Joy Banegas) Patient Position/Activity: Left Extreme (Joy Banegas) LaborFlag: Antepartum (QS system process) Datetime: 10/10/2016 20:15 Respirations: 18 (Joy Banegas) Monitor Mode: External; Palpation (Joy Banegas) Monitor Interventions for UA: [place] Adjusted (Joy Banegas) Frequency (min): none (Joy Banegas) Resting Tone (Palpate): Relaxed (Joy Banegas) Monitor Mode: External US (Joy Banegas) Monitor Interventions for FHR: Ultrasound Adjusted (Joy Banegas) FHR Baseline Rate : 135 (Joy Banegas) Variability: Moderate 6-25 bpm (Joy Banegas) Accelerations: 15X15 (Joy Banegas) Decelerations: None (Joy Banegas) Patient Position/Activity: Right Extreme (Joy Banegas) LaborFlag: Antepartum (QS system process) Datetime: 10/10/2016 20:00 Respirations: 18 (Joy Banegas) Monitor Mode: External; Palpation (Joy Banegas) Monitor Interventions for UA: [place] Adjusted (Jyo Banegas) Frequency (min): none (Joy Banegas) Resting Tone (Palpate): Relaxed (Joy Banegas) Monitor Mode: External US (Joy Banegas) Monitor Interventions for FHR: Ultrasound Adjusted (Joy Banegas) FHR Baseline Rate : 135 (Joy Banegas) FHR Baseline Changes: No Baseline Change (Joy Banegas) Variability: Moderate 6-25 bpm (Joy Banegas) Accelerations: 15X15 (Joy Banegas) Decelerations: None (Joy Banegas) Pitocin (milliunit): Pitocin Increased to (milliunits) @ (Annotations: 6 ) (Joy Banegas) Patient Position/Activity: Right Extreme (Joy Banegas) LaborFlag: Antepartum (QS system process)
[2016-10-10] MEDS: ACETAMINOPHEN 325 MG TABLET PO PRN (23:52)
[2016-10-11] MEDS ORDERED: MAG HYDROX/AL HYDROX/SIMETH SUSP 30 ML UDCUP ONE ×2 (01:19→09:53)
[2016-10-11] MEDS: MAG HYDROX/AL HYDROX/SIMETH SUSP 30 ML UDCUP PO PRN ×2 (01:22→09:52)
[2016-10-11] MEDS ORDERED: EPHEDRINE SULFATE INJ 50 MG/1 ML AMPULE ONE ×2 (01:56→03:46)
[2016-10-11] MEDS ORDERED: FENTANYL/BUPIVACAINE/NS/PF 200 MCG/100 ML RTUINJ EPI ONE (01:56)
[2016-10-11] MEDS ORDERED: BUPIVACAINE HCL 0.25 % INJ/PF (2.5 MG/1 ML) 30 ML VIAL ONE (01:57)
[2016-10-11] MEDS ORDERED: BENZOIN/ALOE VERA/STORAX/TOLU TINCTURE 60 ML TP PRN (04:44)
[2016-10-11] MEDS ORDERED: FENTANYL/BUPIVACAINE/NS/PF 100 ML EPI PRN (04:44)
[2016-10-11] MEDS ORDERED: BUPIVACAINE HCL 0.25 % INJ/PF (2.5 MG/1 ML) 30 ML VIAL INFIL ONE (04:44)
[2016-10-11] MEDS ORDERED: MISOPROSTOL 0.2 MG TABLET ONE (05:59)
[2016-10-11] MEDS ORDERED: OXYTOCIN/NORMAL SALINE 20 UNIT/1,000 ML RTUINJ ONE (05:59)
[2016-10-11] MEDS ORDERED: LIDOCAINE 1% INJ-PF (10 MG/ML) 30 ML SDV ONE (05:59)
--- NOTE | 2016-10-11 08:01 | L&D Flow Sheet ---
LD Flowsheet Datetime Report Generated by CPN: 10/11/2016 08:00 Datetime: 10/11/2016 07:39 NBP Sys/Raya/Mean (mmHg): 116 (QS system process) : 63 (QS system process) : 83 (QS system process) Pulse: 103 (QS system process) LaborFlag: Antepartum (QS system process) Datetime: 10/11/2016 07:09 NBP Sys/Raya/Mean (mmHg): 111 (QS system process) : 60 (QS system process) : 79 (QS system process) Pulse: 110 (QS system process) LaborFlag: Antepartum (QS system process) Datetime: 10/11/2016 06:53 Comments: rn at the bedside for fhr monitor adjustment and maternal positioning (Joy Banegas) Datetime: 10/11/2016 06:45 Respirations: 18 (Joy Banegas) Monitor Mode: External; Palpation (Joy Banegas) Monitor Interventions for UA: [place] Adjusted (Joy Banegas) Frequency (min): 4-5 (Joy Banegas) Quality: Moderate (Joy Banegas) Duration (sec): 60-70 (Joy Banegas) Resting Tone (Palpate): Relaxed (Joy Banegas) Monitor Mode: External US (Joy Banegas) Monitor Interventions for FHR: Ultrasound Adjusted (Joy Banegas) FHR Baseline Rate : 150 (Joy Banegas) Variability: Moderate 6-25 bpm (Joy Banegas) Accelerations: 15X15 (Joy Banegas) Decelerations: None (Joy Banegas) Patient Position/Activity: Right Lateral (Joy Banegas) LaborFlag: Antepartum (QS system process) Datetime: 10/11/2016 06:38 NBP Sys/Raya/Mean (mmHg): 110 (QS system process) : 59 (QS system process) : 80 (QS system process) Pulse: 95 (QS system process) LaborFlag: Antepartum (QS system process) Datetime: 10/11/2016 06:35 NBP Sys/Raya/Mean (mmHg): 112 (QS system process) : 61 (QS system process) : 81 (QS system process) Pulse: 91 (QS system process) LaborFlag: Antepartum (QS system process) Datetime: 10/11/2016 06:34 NBP Sys/Raya/Mean (mmHg): 106 (QS system process) : 57 (QS system process) : 76 (QS system process) Pulse: 100 (QS system process) LaborFlag: Antepartum (QS system process) Datetime: 10/11/2016 06:31 NBP Sys/Raya/Mean (mmHg): 119 (QS system process) : 67 (QS system process) : 86 (QS system process) Pulse: 88 (QS system process) LaborFlag: Antepartum (QS system process) Datetime: 10/11/2016 06:30 Respirations: 18 (Joy Banegas) Monitor Mode: External; Palpation (Joy Banegas) Monitor Interventions for UA: [place] Adjusted (Joy Banegas) Frequency (min): 4-5 (Joy Banegas) Quality: Moderate (Joy Banegas) Duration (sec): 60-70 (Joy Banegas) Resting Tone (Palpate): Relaxed (Joy Banegas) Monitor Mode: External US (Joy Banegas) Monitor Interventions for FHR: Ultrasound Adjusted (Joy Banegas) FHR Baseline Rate : 150 (Joy Banegas) Variability: Moderate 6-25 bpm (Joy Banegas) Accelerations: 10X10 (Joy Banegas) Decelerations: None (Joy Banegas) Patient Position/Activity: Right Lateral (Joy Banegas) LaborFlag: Antepartum (QS system process) Datetime: 10/11/2016 06:29 NBP Sys/Raya/Mean (mmHg): 112 (QS system process) : 68 (QS system process) : 84 (QS system process) Pulse: 96 (QS system process) LaborFlag: Antepartum (QS system process) Datetime: 10/11/2016 06:27 NBP Sys/Raya/Mean (mmHg): 113 (QS system process) : 67 (QS system process) : 85 (QS system process) Pulse: 91 (QS system process) LaborFlag: Antepartum (QS system process) Datetime: 10/11/2016 06:25 NBP Sys/Raya/Mean (mmHg): 110 (QS system process) : 66 (QS system process) : 82 (QS system process) Pulse: 97 (QS system process) LaborFlag: Antepartum (QS system process) Datetime: 10/11/2016 06:23 NBP Sys/Raya/Mean (mmHg): 109 (QS system process) : 67 (QS system process) : 82 (QS system process) Pulse: 88 (QS system process) LaborFlag: Antepartum (QS system process) Datetime: 10/11/2016 06:22 NBP Sys/Raya/Mean (mmHg): 111 (QS system process) : 65 (QS system process) : 82 (QS system process) Pulse: 90 (QS system process) LaborFlag: Antepartum (QS system process) Datetime: 10/11/2016 06:19 NBP Sys/Raya/Mean (mmHg): 114 (QS system process) : 68 (QS system process) : 85 (QS system process) Pulse: 98 (QS system process) LaborFlag: Antepartum (QS system process) Datetime: 10/11/2016 06:17 NBP Sys/Raya/Mean (mmHg): 116 (QS system process) : 69 (QS system process) : 87 (QS system process) Pulse: 94 (QS system process) LaborFlag: Antepartum (QS system process) Datetime: 10/11/2016 06:16 NBP Sys/Raya/Mean (mmHg): 115 (QS system process) : 69 (QS system process) : 86 (QS system process) Pulse: 91 (QS system process) LaborFlag: Antepartum (QS system process) Datetime: 10/11/2016 06:15 Respirations: 18 (Joy Banegas) Monitor Mode: External; Palpation (Joy Banegas) Monitor Interventions for UA: [place] Adjusted (Joy Banegas) Frequency (min): 3-5 (Joy Banegas) Quality: Moderate (Joy Banegas) Duration (sec): 60-80 (Joy Banegas) Resting Tone (Palpate): Relaxed (Joy Banegas) Monitor Mode: External US (Joy Banegas) Monitor Interventions for FHR: Ultrasound Adjusted (Joy Banegas) FHR Baseline Rate : 160 (Joy Banegas) Variability: Moderate 6-25 bpm (Joy Banegas) Accelerations: 10X10 (Joy Banegas) Decelerations: None (Joy Banegas) Patient Position/Activity: Right Lateral (Joy Banegas) LaborFlag: Antepartum (QS system process) Datetime: 10/11/2016 06:14 NBP Sys/Raya/Mean (mmHg): 119 (QS system process) : 74 (QS system process) : 90 (QS system process) Pulse: 85 (QS system process) LaborFlag: Antepartum (QS system process) Datetime: 10/11/2016 06:11 NBP Sys/Raya/Mean (mmHg): 114 (QS system process) : 64 (QS system process) : 82 (QS system process) Pulse: 96 (QS system process) LaborFlag: Antepartum (QS system process) Datetime: 10/11/2016 06:10 NBP Sys/Raya/Mean (mmHg): 115 (QS system process) : 64 (QS system process) : 84 (QS system process) Pulse: 86 (QS system process) LaborFlag: Antepartum (QS system process) Datetime: 10/11/2016 06:08 NBP Sys/Raya/Mean (mmHg): 113 (QS system process) : 58 (QS system process) : 80 (QS system process) Pulse: 109 (QS system process) LaborFlag: Antepartum (QS system process) Datetime: 10/11/2016 06:06 NBP Sys/Raya/Mean (mmHg): 118 (QS system process) : 58 (QS system process) : 84 (QS system process) Pulse: 88 (QS system process) LaborFlag: Antepartum (QS system process) Datetime: 10/11/2016 06:04 NBP Sys/Raya/Mean (mmHg): 112 (QS system process) : 64 (QS system process) : 83 (QS system process) Pulse: 79 (QS system process) LaborFlag: Antepartum (QS system process) Datetime: 10/11/2016 06:02 NBP Sys/Raya/Mean (mmHg): 113 (QS system process) : 66 (QS system process) : 84 (QS system process) Pulse: 89 (QS system process) LaborFlag: Antepartum (QS system process) Datetime: 10/11/2016 06:00 NBP Sys/Raya/Mean (mmHg): 126 (QS system process) : 69 (QS system process) : 87 (QS system process) Pulse: 81 (QS system process) Respirations: 18 (Joy Banegas) Monitor Mode: External; Palpation (Joy Banegas) Monitor Interventions for UA: [place] Adjusted (Joy Banegas) Frequency (min): 3-5 (Joy Banegas) Quality: Moderate (Joy Banegas) Duration (sec): 60-80 (Joy Banegas) Resting Tone (Palpate): Relaxed (Joy Banegas) Monitor Mode: External US (Joy Banegas) Monitor Interventions for FHR: Ultrasound Adjusted (Joy Banegas) FHR Baseline Rate : 160 (Joy Banegas) Variability: Moderate 6-25 bpm (Joy Banegas) Accelerations: 10X10 (Joy Banegas) Decelerations: Late (Joy Banegas) Dilatation (cm): 6.0 (Joy Banegas) Station: -2 (Joy Banegas) Exam by: Dr Mcdaniel (Joy Banegas) Patient Position/Activity: Right Lateral (Joy Banegas) LaborFlag: Antepartum (QS system process) Datetime: 10/11/2016 05:57 Anesthesia Interventions Other: Ephedrine (Joy Banegas) Anesthesia Comments: 5 mg iv (Joy Banegas) Datetime: 10/11/2016 05:56 Dilatation (cm): 9.5 (Joy Banegas) Exam by: NONA Chiu (Joy Banegas) Datetime: 10/11/2016 05:54 NBP Sys/Raya/Mean (mmHg): 98 (QS system process) : 55 (QS system process) : 72 (QS system process) Pulse: 86 (QS system process) LaborFlag: Antepartum (QS system process) Datetime: 10/11/2016 05:50 Pitocin (milliunit): Pitocin Discontinued (Joy Banegas) IV/Blood Work: IV Bolus Started (Joy Banegas) Datetime: 10/11/2016 05:46 Dilatation (cm): 6.0 (Joy Banegas) Effacement (%): 70 (Joy Banegas) Station: -2 (Joy Banegas) Exam by: Anup Banegas Rn (Joy Banegas) Datetime: 10/11/2016 05:45 Respirations: 18 (Joy Banegas) Monitor Mode: External; Palpation (Joy Banegas) Monitor Interventions for UA: [place] Adjusted (Joy Banegas) Frequency (min): 4-6 (Joy Banegas) Quality: Moderate (Joy Banegas) Duration (sec): 50-70 (Joy Banegas) Resting Tone (Palpate): Relaxed (Joy Banegas) Monitor Mode: External US (Joy Banegas) Monitor Interventions for FHR: Ultrasound Adjusted (Joy Banegas) FHR Baseline Rate : 150 (Joy Banegas) FHR Baseline Changes: No Baseline Change (Joy Banegas) Variability: Moderate 6-25 bpm (Joy Banegas) Accelerations: 10X10 (Joy Banegas) Decelerations: Late (Joy Banegas) Comments: rn at the bedside for maternal positioning (Joy Banegas) Patient Position/Activity: Left Lateral (Joy Banegas) LaborFlag: Antepartum (QS system process) Datetime: 10/11/2016 05:39 NBP Sys/Raya/Mean (mmHg): 108 (QS system process) : 62 (QS system process) : 79 (QS system process) Pulse: 84 (QS system process) LaborFlag: Antepartum (QS system process) Datetime: 10/11/2016 05:38 Monitor Interventions for UA: [place] Adjusted (Joy Banegas) Datetime: 10/11/2016 05:33 Patient Position/Activity: Left Lateral (Joy Banegas) Datetime: 10/11/2016 05:30 Respirations: 18 (Joy Banegas) Monitor Mode: External; Palpation (Joy Banegas) Monitor Interventions for UA: [place] Adjusted (Joy Banegas) Frequency (min): 3-5 (Joy Banegas) Quality: Moderate (Joy Banegas) Duration (sec): 60-80 (Joy Banegas) Resting Tone (Palpate): Relaxed (Joy Banegas) Monitor Mode: External US (Joy Banegas) Monitor Interventions for FHR: Ultrasound Adjusted (Joy Banegas) FHR Baseline Rate : 150 (Joy Banegas) Variability: Moderate 6-25 bpm (Joy Banegas) Accelerations: 10X10 (Joy Banegas) Decelerations: Late (Joy Banegas) Pitocin (milliunit): Pitocin Remains (milliunits) @ (Annotations: 14 ) (Joy Banegas) Patient Position/Activity: Right Tilt (Joy Banegas) LaborFlag: Antepartum (QS system process) Datetime: 10/11/2016 05:24 NBP Sys/Raya/Mean (mmHg): 103 (QS system process) : 56 (QS system process) : 73 (QS system process) Pulse: 85 (QS system process) LaborFlag: Antepartum (QS system process) Datetime: 10/11/2016 05:15 Respirations: 18 (Joy Banegas) Monitor Mode: External (Joy Banegas) Monitor Interventions for UA: [place] Adjusted (Joy Banegas) Frequency (min): 3-5 (Joy Banegas) Quality: Moderate (Joy Banegas) Duration (sec): 60-80 (Joy Banegas) Resting Tone (Palpate): Relaxed (Joy Banegas) Monitor Mode: External US (Joy Banegas) Monitor Interventions for FHR: Ultrasound Adjusted (Joy Banegas) FHR Baseline Rate : 150 (Joy Banegas) Accelerations: 15X15 (Joy Banegas) Decelerations: None (Joy Banegas) Patient Position/Activity: Left Tilt (Joy Banegas) LaborFlag: Antepartum (QS system process) Datetime: 10/11/2016 05:09 NBP Sys/Raya/Mean (mmHg): 94 (QS system process) : 50 (QS system process) : 68 (QS system process) Pulse: 86 (QS system process) LaborFlag: Antepartum (QS system process) Datetime: 10/11/2016 05:00 Respirations: 18 (Joy Banegas) Monitor Mode: External; Palpation (Joy Banegas) Monitor Interventions for UA: [place] Adjusted (Joy Banegas) Frequency (min): 3-4 (Joy Banegas) Quality: Moderate (Joy Banegas) Duration (sec): 60-80 (Joy Banegas) Resting Tone (Palpate): Relaxed (Joy Banegas) Monitor Mode: External US (Joy Banegas) Monitor Interventions for FHR: Ultrasound Adjusted (Joy Banegas) FHR Baseline Rate : 150 (Joy Banegas) Variability: Moderate 6-25 bpm (Joy Banegas) Accelerations: 15X15 (Joy Banegas) Decelerations: None (Joy Banegas) Pitocin (milliunit): Pitocin Increased to (milliunits) @ (Annotations: 14) (Joy Banegas) Patient Position/Activity: Left Tilt (Joy Banegas) LaborFlag: Antepartum (QS system process) Datetime: 10/11/2016 04:54 NBP Sys/Raya/Mean (mmHg): 104 (QS system process) : 55 (QS system process) : 71 (QS system process) Pulse: 95 (QS system process) LaborFlag: Antepartum (QS system process) Datetime: 10/11/2016 04:45 Respirations: 18 (Joy Banegas) Monitor Mode: External; Palpation (Joy Banegas) Monitor Interventions for UA: [place] Adjusted (Joy Banegas) Frequency (min): 4 (Joy Banegas) Quality: Moderate (Joy Banegas) Duration (sec): 60-70 (Joy Banegas) Resting Tone (Palpate): Relaxed (Joy Banegas) Monitor Mode: External US (Joy Banegas) Monitor Interventions for FHR: Ultrasound Adjusted (Joy Banegas) FHR Baseline Rate : 150 (Joy Banegas) Variability: Moderate 6-25 bpm (Joy Banegas) Accelerations: 10X10 (Joy Banegas) Decelerations: None (Joy Banegas) Patient Position/Activity: Left Tilt (Joy Banegas) LaborFlag: Antepartum (QS system process) Datetime: 10/11/2016 04:40 NBP Sys/Raya/Mean (mmHg): 103 (QS system process) : 60 (QS system process) : 75 (QS system process) Pulse: 85 (QS system process) LaborFlag: Antepartum (QS system process) Datetime: 10/11/2016 04:35 Pitocin (milliunit): Pitocin Increased to (milliunits) @ (Annotations: 12 ) (Joy Banegas) Datetime: 10/11/2016 04:30 Respirations: 18 (Joy Banegas) Monitor Mode: External; Palpation (Joy Banegas) Monitor Interventions for UA: [place] Adjusted (Joy Banegas) Frequency (min): 3-6 (Joy Banegas) Quality: Moderate (Joy Banegas) Duration (sec): 50-70 (Joy Banegas) Resting Tone (Palpate): Relaxed (Joy Banegas) Monitor Mode: External US (Joy Banegas) Monitor Interventions for FHR: Ultrasound Adjusted (Joy Banegas) FHR Baseline Rate : 150 (Joy Banegas) FHR Baseline Changes: No Baseline Change (Joy Banegas) Variability: Moderate 6-25 bpm (Joy Banegas) Accelerations: 15X15 (Joy Banegas) Decelerations: None (Joy Banegas) Patient Position/Activity: Right Tilt (Joy Banegas) LaborFlag: Antepartum (QS system process) Datetime: 10/11/2016 04:24 NBP Sys/Raya/Mean (mmHg): 102 (QS system process) : 51 (QS system process) : 73 (QS system process) Pulse: 93 (QS system process) LaborFlag: Antepartum (QS system process) Datetime: 10/11/2016 04:21 Patient Care Comments: Pt turned from L side to R side. (Almita Castro RN) Datetime: 10/11/2016 04:15 Respirations: 18 (Joy Banegas) Monitor Mode: External; Palpation (Joy Banegas) Monitor Interventions for UA: [place] Adjusted (Joy Banegas) Frequency (min): 3-5 (Joy Banegas) Quality: Moderate (Joy Banegas) Duration (sec): 50-70 (Joy Banegas) Resting Tone (Palpate): Relaxed (Joy Banegas) Monitor Mode: External US (Joy Banegas) Monitor Interventions for FHR: Ultrasound Adjusted (Joy Banegas) FHR Baseline Rate : 150 (Joy Banegas) Variability: Moderate 6-25 bpm (Joy Banegas) Accelerations: 15X15 (Joy Banegas) Decelerations: Late (Joy Banegas) Patient Position/Activity: Left Lateral (Joy Banegas) LaborFlag: Antepartum (QS system process) Datetime: 10/11/2016 04:09 NBP Sys/Raya/Mean (mmHg): 118 (QS system process) : 57 (QS system process) : 82 (QS system process) Pulse: 86 (QS system process) LaborFlag: Antepartum (QS system process) Datetime: 10/11/2016 04:00 Respirations: 18 (Joy Banegas) Monitor Mode: External; Palpation (Joy Banegas) Monitor Interventions for UA: [place] Adjusted (Joy Banegas) Frequency (min): 2-4 (Joy Banegas) Quality: Moderate (Joy Banegas) Duration (sec): 50-70 (Joy Banegas) Resting Tone (Palpate): Relaxed (Joy Banegas) Monitor Mode: External US (Joy Banegas) Monitor Interventions for FHR: Ultrasound Adjusted (Joy Banegas) FHR Baseline Rate : 150 (Joy Banegas) Variability: Moderate 6-25 bpm (Joy Banegas) Accelerations: 15X15 (Joy Banegas) Decelerations: None (Joy Banegas) Patient Position/Activity: Left Tilt (Joy Banegas) LaborFlag: Antepartum (QS system process) Datetime: 10/11/2016 03:54 NBP Sys/Raya/Mean (mmHg): 119 (QS system process) : 59 (QS system process) : 82 (QS system process) Pulse: 76 (QS system process) LaborFlag: Antepartum (QS system process) Datetime: 10/11/2016 03:52 NBP Sys/Raya/Mean (mmHg): 134 (QS system process) : 64 (QS system process) : 87 (QS system process) Pulse: 83 (QS system process) LaborFlag: Antepartum (QS system process) Datetime: 10/11/2016 03:50 NBP Sys/Raya/Mean (mmHg): 122 (QS system process) : 70 (QS system process) : 88 (QS system process) Pulse: 83 (QS system process) LaborFlag: Antepartum (QS system process) Datetime: 10/11/2016 03:48 NBP Sys/Raya/Mean (mmHg): 94 (QS system process) : 49 (QS system process) : 69 (QS system process) Pulse: 82 (QS system process) Pitocin (milliunit): Pitocin Started (milliunits) @ 10 (Almita Castro RN) LaborFlag: Antepartum (QS system process) Datetime: 10/11/2016 03:47 Anesthesia Interventions Other: Ephedrine (Almita Castro RN) Anesthesia Comments: 5 mg IV (Almita Gloria, RN) Datetime: 10/11/2016 03:45 Respirations: 18 (Joy Banegas) Monitor Mode: External; Palpation (Joy Banegas) Monitor Interventions for UA: [place] Adjusted (Joy Banegas) Frequency (min): 4-6 (Joy Banegas) Quality: Moderate (Joy Banegas) Duration (sec): 50-70 (Joy Banegas) Resting Tone (Palpate): Relaxed (Joy Banegas) Monitor Mode: External US (Joy Banegas) Monitor Interventions for FHR: Ultrasound Adjusted (Joy Banegas) FHR Baseline Rate : 150 (Joy Banegas) FHR Baseline Changes: No Baseline Change (Joy Banegas) Variability: Moderate 6-25 bpm (Joy Banegas) Accelerations: 15X15 (Joy Banegas) Decelerations: None (Joy Banegas) Patient Position/Activity: Left Tilt (Joy Banegas) LaborFlag: Antepartum (QS system process) Datetime: 10/11/2016 03:41 NBP Sys/Raya/Mean (mmHg): 94 (QS system process) : 50 (QS system process) : 69 (QS system process) Pulse: 78 (QS system process) LaborFlag: Antepartum (QS system process) Datetime: 10/11/2016 03:40 NBP Sys/Raya/Mean (mmHg): 94 (QS system process) : 54 (QS system process) : 70 (QS system process) Pulse: 81 (QS system process) LaborFlag: Antepartum (QS system process) Datetime: 10/11/2016 03:35 Dilatation (cm): 6.0 (Joy Banegas) Effacement (%): 70 (Joy Banegas) Station: -1 (Joy Banegas) Exam by: Anup Banegas Rn (Joy Bangeas) Datetime: 10/11/2016 03:33 NBP Sys/Raya/Mean (mmHg): 101 (QS system process) : 50 (QS system process) : 72 (QS system process) Pulse: 73 (QS system process) LaborFlag: Antepartum (QS system process) Datetime: 10/11/2016 03:30 FHR Baseline Changes: Unable to Determine (Joy Banegas) Comments: patient just laying down after epidural placement rn at the bedside for fhr monitor adjustment. (Joy Banegas) IV/Blood Work: existing iv site discontinued and new iv started 18g right forearm (Joy Banegas) Datetime: 10/11/2016 03:28 I/O Interventions: Prieto Cath Inserted (Joy Banegas) Datetime: 10/11/2016 03:25 Epidural Procedure Other: Pump Started (Almita Gloria, RN) Datetime: 10/11/2016 03:19 Epidural Procedure: Loading Dose (Almita Gloria, RN) Datetime: 10/11/2016 03:18 Epidural Procedure: Cath Placed (Almita Gloria, RN) Datetime: 10/11/2016 03:17 NBP Sys/Raya/Mean (mmHg): 140 (QS system process) : 82 (QS system process) : 106 (QS system process) Pulse: 99 (QS system process) Epidural Procedure: Test Dose (Almita Castro RN) LaborFlag: Antepartum (QS system process) Datetime: 10/11/2016 03:13 NBP Sys/Raya/Mean (mmHg): 156 (QS system process) : 107 (QS system process) : 126 (QS system process) Pulse: 97 (QS system process) LaborFlag: Antepartum (QS system process) Datetime: 10/11/2016 03:03 Patient Care Comments: Dr Espinoza at the bedside and explained how the epidural procedure goes and the hospital policy. The fob agreed and left the room. The patient was then able to sit and continue with the epidural. (Joy Banegas) Procedure Verify: Correct Patient Identity; Correct Side and Site are Marked; Accurate Procedure Consent Form; Agreement on Procedure to be Done; Correct Patient Position; Relevant Images and Results are Properly Labeled and Displayed; Addressed Need to Administer Antibiotics or Fluids for Irrigation; Safety Precautions Based on Patient History or Medication Use (Almita Castro RN) Epidural Positioning: Sitting (Almita Castro RN) Anesthesia Comments: Dr. Espinoza at bedside (Almita Castro RN) Datetime: 10/11/2016 03:01 Provider Notified (Name): Dr Espinoza called regarding patient wanting an epidural, the situation with the FOB and patients attitude. (Joy Banegas) Datetime: 10/11/2016 03:00 Monitor Mode: External (Almita Castro RN) Frequency (min): 4-5 (Almita Castro RN) Quality: Moderate (Almita Castro RN) Duration (sec): 40-50 (Almita Castro RN) Resting Tone (Palpate): Relaxed (Almita Castro RN) Monitor Mode: External US (Almita Castro RN) FHR Baseline Rate : 150 (Almita Castro RN) FHR Baseline Changes: No Baseline Change (Almita Castro RN) Variability: Moderate 6-25 bpm (Almita Castro RN) Accelerations: 15X15 (Almita Castro RN) Decelerations: None (Almita Castro RN) Datetime: 10/11/2016 02:50 Patient Care Comments: patient up to the restroom (Joy Banegas) Patient Care Comments: I entered the room because the patient was continuing to yell and scream. The patient states she is in pain and has never felt contractions before. The patient at this time is bolused adequately for an epidural, i again discussed the plan of care for the procedure. The patient continue to scream and yell profanities. At this time the fob states he is not leaving the room during the epidural. I explained the hospital policies, but neither the patient or the fob refused to listen. Almita Reyes and charge room entered the room to help explain the policies but the patient and fob began yelling profanities and cussing. I explained that I will call Dr Espinoza and have him come explain the procedure to them. They agreed and I left the room. (Joy Banegas) Procedure Type: epidural (Joy Banegas) Procedure Verify: Correct Patient Identity; Correct Side and Site are Marked; Accurate Procedure Consent Form; Agreement on Procedure to be Done; Correct Patient Position; Relevant Images and Results are Properly Labeled and Displayed; Safety Precautions Based on Patient History or Medication Use (Joy Banegas) Datetime: 10/11/2016 02:49 I/O Interventions: Up to BR (Almita Guthrieoon, RN) Datetime: 10/11/2016 02:35 Procedure Type: epidural (Joy Banegas) Procedure Verify: Correct Patient Identity; Correct Side and Site are Marked; Accurate Procedure Consent Form; Agreement on Procedure to be Done; Correct Patient Position; Relevant Images and Results are Properly Labeled and Displayed; Safety Precautions Based on Patient History or Medication Use ([facility] Datetime: 10/11/2016 02:31 Pitocin (milliunit): Pitocin Discontinued (Annotations: pitocin on hold for epidural per doctors order ) (Joy Banegas) Teaching Comments: plan of care regarding the epidural procedure discussed the patient is not receptive to listening to any teaching at this time. (Joy Banegas) Datetime: 10/11/2016 02:30 Respirations: 18 (Joy Banegas) Monitor Mode: External; Palpation (Joy Banegas) Monitor Interventions for UA: [place] Adjusted (Joy Banegas) Frequency (min): 2-4 (Joy Banegas) Quality: Moderate (Joy Banegas) Duration (sec): 50-70 (Joy Banegas) Resting Tone (Palpate): Relaxed (Joy Banegas) Monitor Mode: External US (Joy Banegas) Monitor Interventions for FHR: Ultrasound Adjusted (Joy Banegas) FHR Baseline Rate : 140 (Joy Banegas) Variability: Moderate 6-25 bpm (Joy Banegas) Accelerations: 15X15 (Joy Banegas) Decelerations: None (Joy Banegas) Patient Position/Activity: Right Tilt (Joy Banegas) LaborFlag: Antepartum (QS system process) Datetime: 10/11/2016 02:21 Dilatation (cm): 5.0 (Joy Banegas) Effacement (%): 70 (Joy Banegas) Station: -1 (Joy Banegas) Exam by: Anup Banegas Rn (Joy Banegas) Datetime: 10/11/2016 02:15 Respirations: 18 (Joy Banegas) Monitor Mode: External; Palpation (Joy Banegas) Monitor Interventions for UA: [place] Adjusted (Joy Banegas) Frequency (min): 4-6 (Joy Banegas) Quality: Moderate (Joy Banegas) Duration (sec): 50-70 (Joy Banegas) Resting Tone (Palpate): Relaxed (Joy Banegas) Monitor Mode: External US (Joy Banegas) Monitor Interventions for FHR: Ultrasound Adjusted (Joy Banegas) FHR Baseline Rate : 140 (Joy Banegas) FHR Baseline Changes: No Baseline Change (Joy Banegas) Variability: Moderate 6-25 bpm (Joy Banegas) Accelerations: 15X15 (Joy Banegas) Decelerations: None (Joy Banegas) Patient Position/Activity: Right Tilt (Joy Banegas) LaborFlag: Antepartum (QS system process) Datetime: 10/11/2016 02:13 Teaching Comments: plan of care explained to the patient, The patient states she doesnt care what i say she is in pain and has never felt contractions before, I explained she need to recieve iv fluids prior to recieving an epidural, Family at the bedside, further teaching will be needed with the patient. (Joy Banegas) Datetime: 10/11/2016 02:01 NBP Sys/Raya/Mean (mmHg): 122 (QS system process) : 77 (QS system process) : 94 (QS system process) Pulse: 87 (QS system process) LaborFlag: Antepartum (QS system process) Datetime: 10/11/2016 02:00 Respirations: 18 (Joy Banegas) Monitor Mode: External; Palpation (Joy Banegas) Monitor Interventions for UA: [place] Adjusted (Joy Banegas) Frequency (min): 4-6 (Joy Banegas) Quality: Mild/Moderate (Joy Banegas) Duration (sec): 50-70 (Joy Banegas) Resting Tone (Palpate): Relaxed (Joy Banegas) Monitor Mode: External US (Joy Banegas) Monitor Interventions for FHR: Ultrasound Adjusted (Joy Banegas) FHR Baseline Rate : 135 (Joy Banegas) Variability: Moderate 6-25 bpm (Joy Banegas) Accelerations: 15X15 (Joy Banegas) Decelerations: None (Joy Banegas) Pitocin (milliunit): Pitocin Remains (milliunits) @ (Annotations: 20 ) (Joy Banegas) Patient Position/Activity: Left Lateral (Joy Banegas) LaborFlag: Antepartum (QS system process) Datetime: 10/11/2016 01:51 Dilatation (cm): 5.0 (Joy Banegas) Station: -1 (Joy Banegas) Exam by: Milagros Mcduffie Rn (Joy Banegas) IV/Blood Work: bolus started for epidural (Joy Banegas) Datetime: 10/11/2016 01:45 Respirations: 18 (Joy Banegas) Monitor Mode: External; Palpation (Joy Banegas) Monitor Interventions for UA: [place] Adjusted (Joy Banegas) Frequency (min): 4-6 (Joy Banegas) Quality: Mild/Moderate (Joy Banegas) Duration (sec): 60-80 (Joy Banegas) Resting Tone (Palpate): Relaxed (Joy Banegas) Monitor Mode: External US (Joy Banegas) Monitor Interventions for FHR: Ultrasound Adjusted (Joy Banegas) FHR Baseline Rate : 130 (Joy Banegas) Variability: Moderate 6-25 bpm (Joy Banegas) Accelerations: 15X15 (Joy Banegas) Decelerations: None (Joy Banegas) Patient Position/Activity: Left Lateral (Joy Banegas) LaborFlag: Antepartum (QS system process) Datetime: 10/11/2016 01:31 NBP Sys/Raya/Mean (mmHg): 124 (QS system process) : 81 (QS system process) : 98 (QS system process) Pulse: 89 (QS system process) LaborFlag: Antepartum (QS system process) Datetime: 10/11/2016 01:30 Respirations: 18 (Joy Banegas) Monitor Mode: External; Palpation (Joy Banegas) Monitor Interventions for UA: [place] Adjusted (Joy Banegas) Frequency (min): 4-6 (Joy Banegas) Quality: Mild/Moderate (Joy Banegas) Duration (sec): 60-80 (Joy Banegas) Resting Tone (Palpate): Relaxed (Joy Banegas) Monitor Mode: External US (Joy Banegas) Monitor Interventions for FHR: Ultrasound Adjusted (Joy Banegas) FHR Baseline Rate : 130 (Joy Banegas) Variability: Moderate 6-25 bpm (Joy Banegas) Accelerations: 15X15 (Joy Banegas) Decelerations: None (Joy Banegas) Pitocin (milliunit): Pitocin Remains (milliunits) @ (Annotations: 20 ) (Joy Banegas) Patient Position/Activity: Left Lateral (Joy Banegas) LaborFlag: Antepartum (QS system process) Datetime: 10/11/2016 01:22 Dilatation (cm): 4.0 (Joy Banegas) Effacement (%): 70 (Joy Banegas) Station: -2 (Joy Banegas) Exam by: Anup Banegas RN (Joycaity Banegas) Antiemetics/Antacids: Maalox PO (ml) @ (Annotations: 30ml) (Joy Bassam) Datetime: 10/11/2016 01:15 Monitor Mode: External; Palpation (Joy Banegas) Monitor Interventions for UA: [place] Adjusted (Joy Banegas) Frequency (min): occasional (Joy Banegas) Quality: Mild (Joy Banegas) Resting Tone (Palpate): Relaxed (Joy Banegas) Monitor Mode: External US (Joy Banegas) Monitor Interventions for FHR: Ultrasound Adjusted (Joy Banegas) FHR Baseline Rate : 130 (Joy Banegas) Variability: Moderate 6-25 bpm (Joy Banegas) Accelerations: 15X15 (Joy Banegas) Decelerations: None (Joy Banegas) Datetime: 10/11/2016 01:07 NBP Sys/Raya/Mean (mmHg): 133 (QS system process) : 85 (QS system process) : 104 (QS system process) Pulse: 90 (QS system process) LaborFlag: Antepartum (QS system process) Datetime: 10/11/2016 01:00 Respirations: 18 (Joy Banegas) Monitor Mode: External; Palpation (Joy Banegas) Monitor Interventions for UA: [place] Adjusted (Joy Banegas) Frequency (min): occasional (Joy Banegas) Quality: Mild (Joy Banegas) Resting Tone (Palpate): Relaxed (Joy Banegas) Monitor Mode: External US (Joy Banegas) Monitor Interventions for FHR: Ultrasound Adjusted (Joy Banegas) FHR Baseline Rate : 130 (Joy Banegas) Variability: Moderate 6-25 bpm (Joy Banegas) Accelerations: 15X15 (Joy Banegas) Decelerations: None (Joy Banegas) Pitocin (milliunit): Pitocin Remains (milliunits) @ (Annotations: 20 ) (Joy Banegas) Patient Position/Activity: Right Lateral (Joy Banegas) LaborFlag: Antepartum (QS system process) Datetime: 10/11/2016 00:45 Pitocin (milliunit): Pitocin Remains (milliunits) @ (Annotations: 20 ) (Joy Banegas) Datetime: 10/11/2016 00:44 Patient Care Comments: patient up to the restroom (Joy Banegas) Datetime: 10/11/2016 00:43 Respirations: 18 (Joy Banegas) Monitor Mode: External; Palpation (Joy Banegas) Monitor Interventions for UA: [place] Adjusted (Joy Banegas) Frequency (min): none (Joy Banegas) Resting Tone (Palpate): Relaxed (Ojy Banegas) Monitor Mode: External US (Joy Banegas) Monitor Interventions for FHR: Ultrasound Adjusted (Joy Banegas) FHR Baseline Rate : 130 (Joy Banegas) Variability: Moderate 6-25 bpm (Joy Banegas) Accelerations: 15X15 (Joy Banegas) Decelerations: None (Joy Banegas) Patient Position/Activity: Right Lateral (Joy Banegas) LaborFlag: Antepartum (QS system process) Datetime: 10/11/2016 00:31 NBP Sys/Raya/Mean (mmHg): 133 (QS system process) : 83 (QS system process) : 102 (QS system process) Pulse: 90 (QS system process) LaborFlag: Antepartum (QS system process) Datetime: 10/11/2016 00:30 Respirations: 18 (Joy Banegas) Monitor Mode: External; Palpation (Joy Banegas) Monitor Interventions for UA: [place] Adjusted (Joy Banegas) Frequency (min): none (Joy Banegas) Resting Tone (Palpate): Relaxed (Joy Banegas) Monitor Mode: External US (Joy Banegas) Monitor Interventions for FHR: Ultrasound Adjusted (Joy Banegas) FHR Baseline Rate : 130 (Joy Banegas) Variability: Moderate 6-25 bpm (Joy Banegas) Accelerations: 15X15 (Joy Banegas) Decelerations: None (Joy Banegas) Pitocin (milliunit): Pitocin Remains (milliunits) @ (Annotations: 20 ) (Joy Banegas) Patient Position/Activity: Right Lateral (Joy Banegas) LaborFlag: Antepartum (QS system process) Datetime: 10/11/2016 00:15 Respirations: 18 (Joy Banegas) Monitor Mode: External; Palpation (Joy Banegas) Monitor Interventions for UA: [place] Adjusted (Joy Banegas) Frequency (min): none (Joy Banegas) Resting Tone (Palpate): Relaxed (Joy Banegas) Monitor Mode: External US (Joy Banegas) Monitor Interventions for FHR: Ultrasound Adjusted (Joy Banegas) FHR Baseline Rate : 135 (Joy Banegas) Variability: Moderate 6-25 bpm (Joy Banegas) Accelerations: 15X15 (Joy Banegas) Decelerations: None (Joy Banegas) Pitocin (milliunit): Pitocin Remains (milliunits) @ (Annotations: 20 ) (Joy Banegas) Patient Position/Activity: Right Lateral (Joy Banegas) LaborFlag: Antepartum (QS system process) Datetime: 10/11/2016 00:01 NBP Sys/Raya/Mean (mmHg): 124 (QS system process) : 84 (QS system process) : 100 (QS system process) Pulse: 81 (QS system process) LaborFlag: Antepartum (QS system process) Datetime: 10/11/2016 00:00 Respirations: 18 (Joy Banegas) Monitor Mode: External; Palpation (Joy Banegas) Monitor Interventions for UA: [place] Adjusted (Joy Banegas) Frequency (min): none (Joy Banegas) Resting Tone (Palpate): Relaxed (Joy Banegas) Monitor Mode: External US (Joy Banegas) Monitor Interventions for FHR: Ultrasound Adjusted (Joy Banegas) FHR Baseline Rate : 140 (Joy Banegas) FHR Baseline Changes: No Baseline Change (Joy Banegas) Variability: Moderate 6-25 bpm (Joy Banegas) Accelerations: 15X15 (Joy Banegas) Decelerations: None (Joy Banegas) Pitocin (milliunit): Pitocin Increased to (milliunits) @ (Annotations: 20 ) (Joy Banegas) Patient Position/Activity: Right Lateral (Joy Banegas) LaborFlag: Antepartum (QS system process) Datetime: 10/10/2016 23:52 Analgesics/Sedatives: Tylenol (mg) @ (Annotations: 650mg ) (Joy Banegas) Datetime: 10/10/2016 23:45 Pitocin (milliunit): Pitocin Remains (milliunits) @ (Annotations: 18 ) (Joy Banegas) Datetime: 10/10/2016 23:44 Respirations: 18 (Joy Banegas) Monitor Mode: External; Palpation (Joy Banegas) Frequency (min): occasional (Joy Banegas) Quality: Mild (Joy Banegas) Resting Tone (Palpate): Relaxed (Joy Banegas) Monitor Mode: External US (Joy Banegas) Monitor Interventions for FHR: Ultrasound Adjusted (Joy Banegas) FHR Baseline Rate : 140 (Joy Banegas) Variability: Moderate 6-25 bpm (Joy Banegas) Accelerations: 15X15 (Joy Banegas) Patient Position/Activity: Right Lateral (Joy Banegas) LaborFlag: Antepartum (QS system process) Datetime: 10/10/2016 23:31 NBP Sys/Raya/Mean (mmHg): 132 (QS system process) : 79 (QS system process) : 98 (QS system process) Pulse: 96 (QS system process) LaborFlag: Antepartum (QS system process) Datetime: 10/10/2016 23:30 Pitocin (milliunit): Pitocin Remains (milliunits) @ (Annotations: 18) (Joy Banegas) Datetime: 10/10/2016 23:29 Respirations: 18 (Joy Banegas) Monitor Mode: External; Palpation (Joy Banegas) Monitor Interventions for UA: [place] Adjusted (Joy Banegas) Frequency (min): occasional (Joy Banegas) Quality: Mild (Joy Banegas) Resting Tone (Palpate): Relaxed (Joy Banegas) Comments: rn at the bedside for fhr monitor adjustment and maternal positioning (Joy Banegas) Patient Position/Activity: Right Lateral (Joy Banegas) LaborFlag: Antepartum (QS system process) Datetime: 10/10/2016 23:15 Pitocin (milliunit): Pitocin Remains (milliunits) @ (Annotations: 18) (Joy Banegas) Datetime: 10/10/2016 23:14 Respirations: 18 (Joy Banegas) Monitor Mode: External; Palpation (Joy Banegas) Monitor Interventions for UA: [place] Adjusted (Joy Banegas) Frequency (min): occasional (Joy Banegas) Quality: Mild (Joy Banegas) Resting Tone (Palpate): Relaxed (Joy Banegas) Monitor Mode: External US (Joy Banegas) Monitor Interventions for FHR: Ultrasound Adjusted (Joy Banegas) FHR Baseline Rate : 130 (Joy Banegas) FHR Baseline Changes: No Baseline Change (Joy Banegas) Variability: Moderate 6-25 bpm (Joy Banegas) Accelerations: 15X15 (Joy Banegas) Decelerations: None (Joy Banegas) Patient Position/Activity: Right Lateral (Joy Banegas) LaborFlag: Antepartum (QS system process) Datetime: 10/10/2016 23:01 NBP Sys/Raya/Mean (mmHg): 110 (QS system process) : 59 (QS system process) : 79 (QS system process) Pulse: 83 (QS system process) LaborFlag: Antepartum (QS system process) Datetime: 10/10/2016 23:00 Respirations: 18 (Joy Banegas) Monitor Mode: External; Palpation (Joy Banegas) Monitor Interventions for UA: [place] Adjusted (Joy Banegas) Frequency (min): minor irritability (Joy Banegas) Resting Tone (Palpate): Relaxed (Joy Banegas) Comments: rn at the bedside for fhr monitor adjustment and maternal position (Joy Banegas) Pitocin (milliunit): Pitocin Increased to (milliunits) @ (Annotations: 18 ) (Joy Banegas) Patient Position/Activity: Right Lateral (Joy Banegas) LaborFlag: Antepartum (QS system process) Datetime: 10/10/2016 22:55 Patient Care Comments: patient up to the restroom (Joy Banegas) Datetime: 10/10/2016 22:45 Respirations: 18 (Joy Banegas) Monitor Mode: External; Palpation (Joy Banegas) Monitor Interventions for UA: [place] Adjusted (Joy Banegas) Frequency (min): none (Joy Banegas) Resting Tone (Palpate): Relaxed (Joy Banegas) Monitor Mode: External US (Joy Banegas) Monitor Interventions for FHR: Ultrasound Adjusted (Joy Banegas) FHR Baseline Rate : 140 (Joy Banegas) Variability: Moderate 6-25 bpm (Joy Banegas) Accelerations: 15X15 (Joy Banegas) Decelerations: None (Joy Banegas) Patient Position/Activity: Left Lateral (Joy Banegas) LaborFlag: Antepartum (QS system process) Datetime: 10/10/2016 22:30 Respirations: 18 (Joy Banegas) Monitor Mode: External; Palpation (Joy Banegas) Monitor Interventions for UA: [place] Adjusted (Joy Banegas) Frequency (min): none (Joy Banegas) Resting Tone (Palpate): Relaxed (Joy Banegas) Monitor Mode: External US (Joy Banegas) Monitor Interventions for FHR: Ultrasound Adjusted (Joy Banegas) FHR Baseline Rate : 140 (Joy Banegas) Variability: Moderate 6-25 bpm (Joy Banegas) Accelerations: 15X15 (Joy Banegas) Decelerations: None (Joy Banegas) Pitocin (milliunit): Pitocin Increased to (milliunits) @ (Annotations: 16 ) (Joy Banegas) Patient Position/Activity: Left Lateral (Joy Banegas) LaborFlag: Antepartum (QS system process) Datetime: 10/10/2016 22:15 Respirations: 18 (Joy Banegas) Monitor Mode: External; Palpation (Joy Banegas) Monitor Interventions for UA: [place] Adjusted (Joy Banegas) Frequency (min): mild irritability (Joy Banegas) Resting Tone (Palpate): Relaxed (Joy Banegas) Monitor Mode: External US (Joy Banegas) Monitor Interventions for FHR: Ultrasound Adjusted (Joy Banegas) FHR Baseline Rate : 130 (Joy Banegas) Variability: Moderate 6-25 bpm (Joy Banegas) Accelerations: 15X15 (Ojy Banegas) Decelerations: None (Joy Banegas) Patient Position/Activity: Left Lateral (Joy Banegas) LaborFlag: Antepartum (QS system process) Datetime: 10/10/2016 22:00 Pitocin (milliunit): Pitocin Increased to (milliunits) @ (Annotations: 14 ) (Joy Banegas)
--- NOTE | 2016-10-11 08:23 | L&D Progress Notes ---
PROGRESS NOTES Datetime Report Generated by CPN: 10/11/2016 08:23 PROGRESS NOTE Impression: Arrest of Dilatation/Descent; Reassuring Heart Rate Procedures: Artificial ROM; Scalp Electrode; Sterile Vag Exam Plan: Continue Present Management; Induction Comment: Examined patient, rim, 100%, asynclitic, -3, pt turned to knee chest to rotate baby. Dr. Tsang checked patient, turned patied to back, now vtx, 7-8/100, -2m AROM, FSE applied, no fluid obtained, Cat 1 strip repositioned to sitting position, irregular uc's. Will restart Pitocin and watch closely VAGINAL EXAM Dilatation: 5 MEMBRANES Membranes: Ruptured Membranes: Intact FETUS A Monitoring: External US Variability: Moderate 6-25bpm Accelerations: 15X15 Decelerations: None SIGNATURE SIGNATURE: [id number] SIGNATURE: [id number] SIGNATURE: [id number] Assignment: Marino Mcdaniel DO Signature: with User ID: [email or web address] : with User ID: [email or web address]
[2016-10-11] MEDS ORDERED: ACETAMINOPHEN 325 MG TABLET ONE (08:44)
[2016-10-11] MEDS: ACETAMINOPHEN 325 MG TABLET PO PRN (08:44)
--- NOTE | 2016-10-11 10:01 | L&D Flow Sheet ---
LD Flowsheet Datetime Report Generated by CPN: 10/11/2016 10:00 Datetime: 10/11/2016 09:52 Antiemetics/Antacids: Maalox PO (ml) @ 30 (Mesha Granite Quarry, RN) Datetime: 10/11/2016 09:43 Stage of : Labor (Mesha Dione, RN) NBP Sys/Raya/Mean (mmHg): 134 (QS system process) : 75 (QS system process) : 94 (QS system process) Pulse: 84 (QS system process) Respirations: 16 (Mesha Parham RN) Patient Position/Activity: Peanut Ball (Mesha Parham RN) LaborFlag: Labor (QS system process) Datetime: 10/11/2016 09:39 Stage of : Labor (Mesha Parham RN) NBP Sys/Raya/Mean (mmHg): 111 (QS system process) : 64 (QS system process) : 81 (QS system process) Pulse: 85 (QS system process) Respirations: 18 (Mesha Parham RN) Patient Position/Activity: Left Lateral; Low Fowlers (Mesha Parham RN) Communication: RN at Bedside; RN Reviewed Strip (Mesha Parham RN) LaborFlag: Labor (QS system process) Datetime: 10/11/2016 09:30 Pitocin (milliunit): Pitocin Increased to (milliunits) @ (Annotations: 4) (Mesha Parham RN) Datetime: 10/11/2016 09:15 Pitocin (milliunit): Pitocin Remains (milliunits) @ (Annotations: 2) (Mesha Parham, RN) Datetime: 10/11/2016 09:09 NBP Sys/Raya/Mean (mmHg): 119 (QS system process) : 70 (QS system process) : 88 (QS system process) Pulse: 92 (QS system process) LaborFlag: Labor (QS system process) Datetime: 10/11/2016 09:00 Monitor Mode: External (Mesha Parham RN) Frequency (min): 4-4.5 (Mesha Parham RN) Quality: Moderate (Mesha Parham RN) Duration (sec): 70-100 (Mesha Parham, DUNG) Duration Criteria: Less than Two 120 Second Contractions (Mesha Parham, DUNG) Pattern: Normal: <= 5 Contractions in 10 Minutes (Mesha Parham RN) Resting Tone (Palpate): Relaxed (Mesha Parham, DUNG) Monitor Mode: External US (Mesha Parham, DUNG) FHR Baseline Rate : 140 (Mesha Parham RN) FHR Baseline Changes: No Baseline Change (Mesha Parham RN) Variability: Moderate 6-25 bpm (Mesha Parham, RN) Accelerations: 15X15 (Mesha Parham, RN) Decelerations: None (Mesha Parham, DUNG) Comments: reports positive movement (Mesha Parham, DUNG) Pitocin (milliunit): Pitocin Remains (milliunits) @ (Annotations: 2) (Mesha Parham, DUNG) Datetime: 10/11/2016 08:47 Pitocin (milliunit): Pitocin Started (milliunits) @ 2 (Mesha Parham, DUNG) Analgesics/Sedatives: Tylenol (mg) @ 650 mg PO (Mesha Parham, RN) Medication Comments: Pitocin infusion restarted per Kaycee Lira CNM (Mesha Parham, DUNG) Datetime: 10/11/2016 08:45 Monitor Mode: External (Mesha Parham, DUNG) Frequency (min): 2.5-4 (Mesha Parham, DUNG) Quality: Moderate (Mesha Parham RN) Duration (sec): 50-100 (Mesha Parham, RN) Duration Criteria: Less than Two 120 Second Contractions (Mesha Parham, RN) Pattern: Normal: <= 5 Contractions in 10 Minutes (Mesha Parham, RN) Resting Tone (Palpate): Relaxed (Mesha Parham, DUNG) Monitor Mode: External US (Mesha Parham RN) FHR Baseline Rate : 145 (Mesha Parham RN) FHR Baseline Changes: No Baseline Change (Mesha Parham, DUNG) Variability: Moderate 6-25 bpm (Mesha Parham, RN) Accelerations: 15X15 (Mesha Parham, RN) Decelerations: None (Mesha Parham, RN) Datetime: 10/11/2016 08:40 Stage of : Labor (Mesha Parham RN) NBP Sys/Raya/Mean (mmHg): 120 (QS system process) : 75 (QS system process) : 92 (QS system process) Pulse: 90 (QS system process) Respirations: 14 (Mesha Parham RN) Instructional Method: Verbal; Patient Instructed; Family/Support Person Instructed; Verbalized Understanding (Mesha Parham RN) Plan of Care: Plan of Care Discussed; Vaginal Delivery; Labor; Induction; Gestational Hypertension/Preeclampsia/Eclampsia (Mesha Parham RN) Unit Routine: [place] to Room; Call Cronin; Bed; Visiting Policy; Waiting Areas; Infant Security; Phone/Cell Phone Use; Photography; Unit Personnel; Handwashing; Flu/Illness Precautions; Monitoring; IV Pumps; Safety/Fall Risk Prevention; Diet/Nutrition Services; Bathroom Privileges; Routine Time Outs; Medications (Mesha Parham, RN) Labor/Induction: Labor Stages; Augmentation; Induction; Artificial Rupture of Membranes; Interventions; Activity; Pushing Methods (Mesha Parham, RN) Pain Management: Epidural; PRN Medications; Pain Scale/Goals; Comfort Measures (Mesha Parham, RN) Medications: Pitocin (Mesha Parham RN) PTL/PROM: Expected Outcomes (Mesha Parham, RN) Related: Common Discomforts of ; Maternal Physical Changes; Maternal Emotional Changes; Nutrition; Hydration; Activity and Rest (Mesha Parham, DUNG) LaborFlag: Labor (QS system process) Datetime: 10/11/2016 08:35 Stage of : Labor (Mesha Parham, DUNG) Pain Scale: 2 (Mesha Parham, DUNG) Pain Presence: Constant (Mesha Parham, RN) Pain Type: Dull (Mesha Parham, RN) Pain Location: Head (Mesha Parham, DUNG) Pain Goal: 1 (Mesha Parham, DUNG) Pain Relief Measures: Comfort Measures (Annotations: requesting tylenol) (Mesha Parham, DUNG) LaborFlag: Labor (QS system process) Datetime: 10/11/2016 08:30 Monitor Mode: External (Mesha Parham, RN) Frequency (min): 4-4.5 (Mesha Parham, RN) Quality: Moderate (Mesha [place], RN) Duration (sec): 60-80 (Mesha Dione, RN) Duration Criteria: Less than Two 120 Second Contractions (Mesha Chauard, RN) Pattern: Normal: <= 5 Contractions in 10 Minutes (Mesha Chauard, RN) Resting Tone (Palpate): Relaxed (Mesha Parham, RN) Monitor Mode: External US (Mesha Parham, RN) FHR Baseline Rate : 145 (Mesha Parham, RN) FHR Baseline Changes: No Baseline Change (Mesha Dione, RN) Variability: Moderate 6-25 bpm (Mesha [place], RN) Accelerations: 15X15 (Mesha [place], RN) Decelerations: None (Mesha Dione, RN) Datetime: 10/11/2016 08:23 Stage of : Labor (Mesha Parham, RN) NBP Sys/Raya/Mean (mmHg): 120 (QS system process) : 75 (QS system process) : 91 (QS system process) Pulse: 92 (QS system process) Respirations: 16 (Mesha Dione, RN) Temperature (F): 98.1 (Mesha Parham RN) Temperature (C): 36.7 (QS system process) Temperature Route: Oral (Mesha Parham RN) Pain Scale: 1 (Mesha Parham RN) Pain Presence: Intermittent (Mesha Parham RN) Pain Type: Pressure (Mesha Parham RN) Pain Location: Abdomen; Back (Mesha Parham RN) Pain Goal: 1 (Mesha Parham RN) Pain Relief Measures: Comfort Measures (Mesha Parham RN) LaborFlag: Labor (QS system process) Datetime: 10/11/2016 08:17 Patient Position/Activity: High Fowlers; Tailors (Dayne Sun, ) Datetime: 10/11/2016 08:15 Monitor Interventions for FHR: FSE Applied (Dayne Garsia, ) Datetime: 10/11/2016 08:14 Dilatation (cm): 8.0 (Mesha Parham RN) Effacement (%): 100 (Mesha Parham RN) Station: -2 (Mesha Parham RN) Exam by: Dr. Mcgee (Mesha Parham RN) Membrane Status: Ruptured (Dayne Garsia RN) Membranes Rupture Method: Artificial (Dayne Garsia RN) Amniotic Fluid Amount: Scant (Dayne Garsia RN) Amniotic Fluid Odor: Normal (Dayne Garsia RN) Membrane Comments: Dr. Mcgee at bedside artifically breaking water (Dayne Garsia RN) Datetime: 10/11/2016 08:10 Communication: Provider at Bedside (Dayne Garsia RN) Provider Notified (Name): Dr. Mcgee at bedside assessing patient and fetus status (Dayne Garsia RN) Datetime: 10/11/2016 08:09 Patient Position/Activity: Hands-Knees (Dayne Garsia, DUNG) Datetime: 10/11/2016 08:07 Patient Position/Activity: Hands-Knees (Dayne Garsia, DUNG) Datetime: 10/11/2016 08:02 Dilatation (cm): 9.0 (Dayne Garsia RN) Effacement (%): 100 (Dayne Garsia RN) Station: -3 (Dayne Garsia RN) Exam by: Kaycee Lira (Dayne Garsia RN) Vaginal Bleeding: Normal Show (Dayne Garsia RN) Cervix, Consistency: Soft (Dayne Garsia RN) Cervix, Position: Midposition (Dayne Garsia RN) Lie 'A': Longitudinal (Dayne Garsia RN) Provider Reviewed Strip: Yes (Dayne Garsia RN) Strip Reviewed by: Kaycee Lira CNM (Dayne Garsia, DUNG) Communication: RN at Bedside; RN Reviewed Strip; Provider at Bedside (Dayne Garsia RN) Provider Notified (Name): Kaycee Lira CNM (Dayne Garsia RN) Datetime: 10/11/2016 08:00 Monitor Mode: External (Mesha Parham RN) Frequency (min): 2-5 (Mesha Parham RN) Quality: Moderate (Mesha Parham RN) Duration (sec): 60-110 (Mesha Parham, DUNG) Duration Criteria: Less than Two 120 Second Contractions (Mesha Parham, DUNG) Pattern: Normal: <= 5 Contractions in 10 Minutes (Mesha Parham, RN) Resting Tone (Palpate): Relaxed (Mesha Parham, DUNG) Monitor Mode: External US (Mesha Parham, DUNG) FHR Baseline Rate : 140 (eMsha Parham RN) FHR Baseline Changes: No Baseline Change (Mesha Parham, DUNG) Variability: Moderate 6-25 bpm (Mesha Parham RN) Accelerations: 15X15 (Mesha Parham, RN) Decelerations: Late (Mesha Parham, RN) Actions for Decelerations: Side to Side; IV Bolus (Mesha Parham, DUNG) Anesthesia Plans: Epidural (Mesha Parham RN) Anesthesia Level Check: T9 (Mesha Parham RN)
--- NOTE | 2016-10-11 10:14 | L&D Progress Notes ---
PROGRESS NOTES Datetime Report Generated by CPN: 10/11/2016 10:13 PROGRESS NOTE Vital Signs : Reviewed Comment: VE= 8/100/vtx/-1, head well applied, feeling pressure and wants more anesthesia for epidural, position changed, Dr. FROST AWARE OF PTS ARRESTED DILATATION FETUS C SIGNATURE: [id number] Assignment: Ruthie Chester MD Signature: with User ID: [email or web address] : with User ID: [email or web address]
[2016-10-11] MEDS ORDERED: LIDOCAINE 2%/EPINEPHRINE INJ 20 ML VIAL ONE (10:28)
--- NOTE | 2016-10-11 12:00 | L&D Flow Sheet ---
LD Flowsheet Datetime Report Generated by CPN: 10/11/2016 12:00 Datetime: 10/11/2016 11:55 I/O Interventions: Prieto Discontinued (Mesha Chauard, RN) Datetime: 10/11/2016 11:52 Comments: RN at bedside continuoulsy assessing FHT while patient pushes with contractions (Mesha Bellona, RN) Datetime: 10/11/2016 11:50 Preparation for Delivery: Setup for Delivery (Mesha Parham RN) Datetime: 10/11/2016 11:48 NBP Sys/Raya/Mean (mmHg): 127 (QS system process) : 77 (QS system process) : 91 (QS system process) Pulse: 101 (QS system process) LaborFlag: Labor (QS system process) Datetime: 10/11/2016 11:46 Dilatation (cm): 9.0 (Mesha Parham RN) Effacement (%): 100 (Mesha Parham RN) Station: -1 (Mesha Parham RN) Exam by: Dr. Chester (Mesha Parham, RN) Vaginal Bleeding: Normal Show (Mesha Parham, RN) Cervix, Consistency: Soft (Mesha Parham, RN) Cervix, Position: Midposition (Mesha Parham, DUNG) Pitocin (milliunit): Pitocin Started (milliunits) @ 6 (Mesha Parham, RN) Medication Comments: Per Dr. Chester who is at bedside (Mesha Parham, RN) Provider Reviewed Strip: Yes (Mesha Parham RN) Communication: RN at Bedside; RN Reviewed Strip; Provider at Bedside (Mesha Parham RN) Provider Notified (Name): Dr. Chester at bedside assessing patient (Mesha Parham, DUNG) Datetime: 10/11/2016 11:33 Stage of : Labor (Mesha Parham RN) NBP Sys/Raya/Mean (mmHg): 137 (QS system process) : 82 (QS system process) : 103 (QS system process) Pulse: 90 (QS system process) Respirations: 20 (Mesha Parham RN) LaborFlag: Labor (QS system process) Datetime: 10/11/2016 11:31 NBP Sys/Raya/Mean (mmHg): 128 (QS system process) : 82 (QS system process) : 100 (QS system process) Pulse: 80 (QS system process) LaborFlag: Labor (QS system process) Datetime: 10/11/2016 11:30 Monitor Mode: External; Palpation (Mesha Parham RN) Frequency (min): 4.-4.5 (Mesha Parham RN) Quality: Moderate (Mesha Parham RN) Duration (sec): 70-90 (Mesha Parham RN) Duration Criteria: Less than Two 120 Second Contractions (Mesha Parham RN) Pattern: Normal: <= 5 Contractions in 10 Minutes (Mesha Parham RN) Resting Tone (Palpate): Relaxed (Mesha Parham RN) Monitor Mode: Internal Scalp Electrode (Mesha Parham, DUNG) FHR Baseline Rate : 140 (Mehsa Parham RN) FHR Baseline Changes: No Baseline Change (Mesha Parham RN) Variability: Moderate 6-25 bpm (Mesha Parham RN) Accelerations: 15X15 (Mesha Parham RN) Decelerations: Late; Prolonged (Mesha Parham RN) Actions for Decelerations: Side to Side; Provider Notified (Mesha Parham RN) Comments: 4.5 minute prolonged latye with return to baseline following interventions (Mesha Parham RN) Communication: RN at Bedside (Mesha Parham RN) Datetime: 10/11/2016 11:27 Patient Position/Activity: Right Lateral; Low Fowlers (Mesha Dione, RN) Communication: RN at Bedside; RN Reviewed Strip (Mesha Bellona, RN) Datetime: 10/11/2016 11:18 Patient Position/Activity: Left Lateral; Low Fowlers (Mesha Bellona, RN) Communication: RN at Bedside (Mesha Dione, RN) Datetime: 10/11/2016 11:15 Monitor Mode: External (Mesha Bellona, RN) Frequency (min): 3-4 (Mesha Bellona, RN) Quality: Moderate (Mesha Dione, RN) Duration (sec): 60-90 (Mesha Dione, DUNG) Duration Criteria: Less than Two 120 Second Contractions (Mesha Parham, DUNG) Pattern: Normal: <= 5 Contractions in 10 Minutes (Mesha Parham, RN) Resting Tone (Palpate): Relaxed (Mesha Parham RN) Monitor Mode: Internal Scalp Electrode (Mesha Parham, DUNG) FHR Baseline Rate : 145 (Mesha Parham, RN) FHR Baseline Changes: No Baseline Change (Mesha Parham RN) Variability: Moderate 6-25 bpm (Mesha Parham, RN) Accelerations: 15X15 (Mesha Parham, RN) Decelerations: Early (Mesha Parham RN) Actions for Decelerations: Side to Side (Mesha Parham RN) Communication: RN at Bedside (Mesha Parham RN) Datetime: 10/11/2016 11:10 Stage of : Labor (Mesha Parham RN) NBP Sys/Raya/Mean (mmHg): 119 (QS system process) : 83 (QS system process) : 95 (QS system process) Pulse: 82 (QS system process) Respirations: 14 (Mesha Parham, DUNG) LaborFlag: Labor (QS system process) Datetime: 10/11/2016 11:00 Monitor Mode: External (Mesha Bellona, RN) Frequency (min): 3-4 (Mesha Bellona, RN) Quality: Moderate (Mesha Bellona, RN) Duration (sec): 60-90 (Mesha Bellona, RN) Duration Criteria: Less than Two 120 Second Contractions (Mesha Bellona, RN) Pattern: Normal: <= 5 Contractions in 10 Minutes (Mesha Bellona, RN) Resting Tone (Palpate): Relaxed (Mesha Bellona, RN) Monitor Mode: Internal Scalp Electrode (Mesha Bellona, RN) FHR Baseline Rate : 150 (Mesha Bellona, RN) FHR Baseline Changes: No Baseline Change (Mesha Bellona, RN) Variability: Moderate 6-25 bpm (Mesha Bellona, RN) Accelerations: 10X10 (Mesha Bellona, RN) Decelerations: Late (Mesha Dione, RN) Datetime: 10/11/2016 10:55 Communication: Provider at Bedside (Mesha Parham, RN) Provider Notified (Name): anesthesia at bedside assessing patient's pain (Mesha Dione, RN) Datetime: 10/11/2016 10:49 Temperature (F): 98.1 (Mesha Dione, RN) Temperature (C): 36.7 (QS system process) LaborFlag: Labor (QS system process) Datetime: 10/11/2016 10:48 Actions for Decelerations: Pitocin Off; IV Bolus (Mesha Dione, RN) Pitocin (milliunit): Pitocin Discontinued (Mesha Dione, RN) Datetime: 10/11/2016 10:46 Patient Position/Activity: Hands-Knees (Mesha Bellona, RN) Communication: RN at Bedside (Mesha Dione, RN) Datetime: 10/11/2016 10:45 Monitor Mode: External; Palpation (Mesha Parham, DUNG) Frequency (min): 3-4 (Mesha Parham, DUNG) Quality: Moderate (Mesha Parham, RN) Duration (sec): 60-90 (Mesha Parham, RN) Duration Criteria: Less than Two 120 Second Contractions (Mesha Parham, RN) Pattern: Normal: <= 5 Contractions in 10 Minutes (Mesha Parham, RN) Resting Tone (Palpate): Relaxed (Mesha Parham, RN) Monitor Mode: Internal Scalp Electrode (Mesha Parham, RN) FHR Baseline Rate : 150 (Mesha Parham, RN) FHR Baseline Changes: No Baseline Change (Mesha Parham, DUNG) Variability: Moderate 6-25 bpm (Mesha Parham, RN) Accelerations: 15X15 (Mesha Parham, RN) Decelerations: Late (Mesha Parham, RN) Actions for Decelerations: Side to Side; Hands and Knees; Pitocin Off; IV Bolus (Mesha Parham, DUNG) Pitocin (milliunit): Pitocin Remains (milliunits) @ (Annotations: 6) (Mesha Parham, RN) Datetime: 10/11/2016 10:33 Stage of : Labor (Mesha Parham RN) NBP Sys/Raya/Mean (mmHg): 119 (QS system process) : 68 (QS system process) : 87 (QS system process) Pulse: 80 (QS system process) Respirations: 18 (Mesha Parham, RN) LaborFlag: Labor (QS system process) Datetime: 10/11/2016 10:30 Monitor Mode: External (Mesha Parham, RN) Frequency (min): 2-4 (Mesha Parham, RN) Quality: Moderate (Mesha Parham, RN) Duration (sec): 60-80 (Mesha Parham, RN) Duration Criteria: Less than Two 120 Second Contractions (Mesha Chauard, RN) Pattern: Normal: <= 5 Contractions in 10 Minutes (Mesha Dione, RN) Resting Tone (Palpate): Relaxed (Mesha Chauard, RN) Monitor Mode: Internal Scalp Electrode (Mesha Parham, RN) FHR Baseline Rate : 150 (Mesha Chauard, RN) Variability: Moderate 6-25 bpm (Mesha Bellona, RN) Accelerations: 15X15 (Mesha Bellona, RN) Decelerations: Early; Late (Mesha Chauard, RN) Pitocin (milliunit): Pitocin Remains (milliunits) @ (Annotations: 6) (Mesha Parham, RN) Datetime: 10/11/2016 10:25 Communication: Call/Page Placed to Provider (Mesha Parham RN) Provider Notified (Name): Dr. Turner called notifying of increased pain reported by patient. states she will come to L_D to assess patient (Mesha Parham RN) Datetime: 10/11/2016 10:23 Provider Notified (Name): Kaycee Lira CNM notified of patient request to redose epidural due to increased pain. Orders received to call anesthesia to discuss (Mesha Parham RN) Notification Reason: Pain (Mesha Parham RN) Datetime: 10/11/2016 10:18 Stage of : Recovery (Mesha Parham RN) NBP Sys/Raya/Mean (mmHg): 117 (QS system process) : 67 (QS system process) : 87 (QS system process) Pulse: 80 (QS system process) Respirations: 18 (Mesha Parham RN) Pain Scale: 3 (Mesha Parham RN) Pain Presence: Intermittent (Mesha Parham RN) Pain Type: Pressure (Mesha Parham RN) Pain Location: Abdomen; Back; Perineum (Mesha Parham RN) Pain Goal: 1 (Mesha Parham RN) Pain Relief Measures: Comfort Measures (Annotations: requesting additional pain relief; provider aware) (Mesha Parham, DUNG) Datetime: 10/11/2016 10:15 Monitor Mode: External (Mesha Parham RN) Monitor Interventions for UA: [place] Adjusted (Mesha Parham, DUNG) Resting Tone (Palpate): Relaxed (Mesha Parham, DUNG) Contraction Comments: UTD (Mesha Parham, DUNG) Monitor Mode: Internal Scalp Electrode (Mesha Parham RN) FHR Baseline Rate : 140 (Mesha Parham RN) FHR Baseline Changes: No Baseline Change (Mesha Parham RN) Variability: Moderate 6-25 bpm (Mesha Parham RN) Accelerations: 15X15 (Mesha Parham RN) Decelerations: Early; Late (Mesha Parham RN) Pitocin (milliunit): Pitocin Remains (milliunits) @ (Annotations: 6) (Mesha Parham, DUNG) Datetime: 10/11/2016 10:06 Dilatation (cm): 9.0 (Mesha Parham RN) Effacement (%): 100 (Mesha Parham RN) Station: -1 (Mesha Parham, RN) Exam by: Kaycee Lira CNM (Mesha Parham, DUNG) Vaginal Bleeding: Normal Show (Mesha Parham RN) Cervix, Consistency: Soft (Mesha Parham RN) Cervix, Position: Midposition (Mesha Parham RN) Provider Reviewed Strip: Yes (Mesha Parham RN) Communication: RN at Bedside; RN Reviewed Strip; Provider at Bedside (Mesha Parahm RN) Datetime: 10/11/2016 10:03 Stage of : Labor (Mesha Parham RN) NBP Sys/Raya/Mean (mmHg): 131 (QS system process) : 79 (QS system process) : 100 (QS system process) Pulse: 81 (QS system process) Respirations: 18 (Mesha Parham RN) LaborFlag: Labor (QS system process) Datetime: 10/11/2016 10:00 Monitor Mode: External (Mesha Parham RN) Monitor Interventions for UA: [place] Adjusted (Mesha Parham, DUNG) Quality: Moderate to Strong (Mesha Parham RN) Resting Tone (Palpate): Relaxed (Mesha Parham RN) Contraction Comments: unable to determine due to patient position (Mesha Parham RN) Monitor Mode: Internal Scalp Electrode (Mesha Parham RN) FHR Baseline Rate : 140 (Mesha Parham RN) FHR Baseline Changes: No Baseline Change (Mesha Parham RN) Variability: Moderate 6-25 bpm (Mesha Parham RN) Accelerations: 15X15 (Mesha Parham RN) Decelerations: None (Mesha Parham RN) Pitocin (milliunit): Pitocin Increased to (milliunits) @ (Annotations: 6) (Mesha Parham RN)
[2016-10-11] MEDS ORDERED: PSEUDOEPHEDRINE HCL 30 MG TABLET PO PRN (12:56)
[2016-10-11] MEDS ORDERED: ACETAMINOPHEN WITH CODEINE #3 TABLET PO PRN (12:56)
[2016-10-11] MEDS ORDERED: ACETAMINOPHEN 650 MG SUPP.RECT PR PRN (12:56)
[2016-10-11] MEDS ORDERED: NA PHOS,M-B/NA PHOS,DI-BA (ADULT) 133 ML ENEMA PR PRN (12:56)
[2016-10-11] MEDS ORDERED: PROMETHAZINE HCL INJ 25 MG/1 ML VIAL IV PRN (12:56)
[2016-10-11] MEDS ORDERED: DIBUCAINE 1% OINTMENT 28 GM TP PRN (12:56)
[2016-10-11] MEDS ORDERED: MEASLES,MUMPS&RUBELLA VACC/PF 0.5 ML VIAL SUBCUT PRN (12:56)
[2016-10-11] MEDS ORDERED: BENZOCAINE/MENTHOL AEROSOL SPRAY 56 ML TOP PRN (12:56)
[2016-10-11] MEDS ORDERED: PROMETHAZINE HCL 25 MG TABLET PO PRN (12:56)
[2016-10-11] MEDS ORDERED: MAGNESIUM HYDROXIDE SUSP 30 ML UDCUP PO PRN (12:56)
[2016-10-11] MEDS ORDERED: PROMETHAZINE HCL 25 MG SUPP.RECT PR PRN (12:56)
[2016-10-11] MEDS ORDERED: DIPH/PERTUSS(ACELL)/TETANUS VAC/PF 0.5 ML SYR (>=10YO) IM PRN (12:56)
[2016-10-11] MEDS ORDERED: GLYCERIN/WITCH HAZEL LEAF 1 EACH MED..PAD TP PRN (12:56)
[2016-10-11] MEDS ORDERED: OXYTOCIN/NORMAL SALINE 1,000 ML IV PRN (12:56)
[2016-10-11] MEDS ORDERED: MISOPROSTOL 0.2 MG TABLET PR ONE (12:58)
[2016-10-11 13:17] LABS: ARTERIAL BLOOD BASE EXCESS -7.7 mmol/L; ARTERIAL BLOOD O2 SATURATION 29.7 % (94-98)
--- NOTE | 2016-10-11 14:01 | L&D Flow Sheet ---
LD Flowsheet Datetime Report Generated by CPN: 10/11/2016 14:00 Datetime: 10/11/2016 13:58 NBP Sys/Raya/Mean (mmHg): 129 (QS system process) : 89 (QS system process) : 106 (QS system process) Pulse: 97 (QS system process) Datetime: 10/11/2016 13:30 Stage of : Recovery (Mesha Parham RN) Pain Scale: 2 (Mesha Parham, DUNG) Pain Presence: Intermittent (Mesha Waseca, RN) Pain Type: Cramping (Mesha [place], RN) Pain Location: Abdomen (Mesah [place], RN) Pain Goal: 1 (Mesha [place], RN) Pain Relief Measures: Comfort Measures (Mesha [place], RN) Datetime: 10/11/2016 13:28 Stage of : Recovery (Mesha [place], RN) Datetime: 10/11/2016 13:27 Stage of : Recovery (Mesha [place], RN) Datetime: 10/11/2016 13:19 Stage of : Recovery (Mesha Parham RN) NBP Sys/Raya/Mean (mmHg): 136 (QS system process) : 73 (QS system process) : 95 (QS system process) Pulse: 92 (QS system process) Respirations: 12 (Mesha Parham RN) Datetime: 10/11/2016 13:15 Stage of : Recovery (Mesha Parham RN) Pain Scale: 2 (Mesha Parham RN) Pain Presence: Intermittent (Mesha Parham RN) Pain Type: Cramping (Mesha Parham RN) Pain Location: Abdomen (Mesha Parham RN) Pain Goal: 1 (Mesha Parham RN) Pain Relief Measures: Comfort Measures (Mesha Parham RN) Datetime: 10/11/2016 13:10 Stage of : Recovery (Mesha Parham RN) Temperature (F): 98.7 (Mesha Parham RN) Temperature (C): 37.1 (QS system process) Temperature Route: Oral (Mesha Parham RN) Pain Scale: 2 (Mesha Parham RN) Pain Presence: Intermittent (Mesha Parham RN) Pain Type: Cramping; Ache (Mesha Parham RN) Pain Location: Abdomen (Mesha Parham RN) Pain Goal: 1 (Mesha Parham RN) Pain Relief Measures: Comfort Measures (Mesha Parham RN) Datetime: 10/11/2016 13:07 Stage of : Recovery (Mesha Parham RN) NBP Sys/Raya/Mean (mmHg): 122 (QS system process) : 62 (QS system process) : 82 (QS system process) Pulse: 99 (QS system process) Respirations: 14 (Mesha Parham RN) Datetime: 10/11/2016 13:01 NBP Sys/Raya/Mean (mmHg): 225 (Annotations: Patient lying on BP cuff) (Mesha Parham RN) : 149 (QS system process) : 177 (QS system process) Pulse: 137 (QS system process) Datetime: 10/11/2016 13:00 Stage of : Recovery (Mesha Dione, RN) Datetime: 10/11/2016 12:41 Anesthesia Comments: Epidural pump off (Mesha Dione, RN) Datetime: 10/11/2016 12:40 Stage of : Recovery (Mesha [place], RN) Datetime: 10/11/2016 12:38 NBP Sys/Raya/Mean (mmHg): 142 (QS system process) : 79 (QS system process) : 95 (QS system process) Pulse: 88 (QS system process) LaborFlag: Labor (QS system process) Datetime: 10/11/2016 12:35 Stage of : Labor (Mesha Parham RN) NBP Sys/Raya/Mean (mmHg): 132 (QS system process) : 89 (QS system process) : 105 (QS system process) Pulse: 106 (QS system process) Respirations: 18 (Mesha Parham, DUNG) Monitor Mode: External; Palpation (Mesha Parham RN) Frequency (min): 3-5 (Mesha Parham RN) Quality: Moderate (Mesha Parham RN) Duration (sec): 60-110 (Mesha Parham RN) Duration Criteria: Less than Two 120 Second Contractions (Mesha Parham RN) Pattern: Normal: <= 5 Contractions in 10 Minutes (Mesha Parham RN) Resting Tone (Palpate): Relaxed (Mesha Parham RN) LaborFlag: Labor (QS system process) Datetime: 10/11/2016 12:34 Monitor Mode: External US (Mesha Dione, RN) FHR Baseline Rate : 130 (Mesha [place], RN) FHR Baseline Changes: No Baseline Change (Mesha [place], RN) Variability: Moderate 6-25 bpm (Mesha [place], RN) Accelerations: 15X15 (Mesha [place], RN) Decelerations: None (Mesha Dione, RN) Comments: patient pushing with contractions (Mesha Dione, RN) Datetime: 10/11/2016 12:32 Pushing: Coached on Pushing; Urge to Push (Mesha [place], RN) Pushing Position: Pushing with Contractions; Pushing Lithotomy (Mesha Dione, RN) Pushing Progress: Descent with Pushing; Presenting Part Visible; with Pushing; Pushing Effectively with Contractions (Mesha Dione, RN) Datetime: 10/11/2016 12:30 Pitocin (milliunit): Pitocin Increased to (milliunits) @ (Annotations: 8) (Mesha [place], RN) Datetime: 10/11/2016 12:23 Pushing: Coached on Pushing; Urge to Push (Mesha Dione, RN) Pushing Position: Pushing with Contractions; Pushing Lithotomy (Mesha [place], RN) Pushing Progress: Descent with Pushing; Pushing Effectively with Contractions (Mesha [place], RN) Datetime: 10/11/2016 12:21 Pushing: Coached on Pushing; Urge to Push (Mesha [place], RN) Pushing Position: Pushing with Contractions (Mesha [place], RN) Pushing Progress: Descent with Pushing; Ineffective Pushing (Mesha [place], RN) Stage 2 Comments: poor maternal effort with pushing (Mesha Dione, RN) Datetime: 10/11/2016 12:15 Monitor Mode: Internal Scalp Electrode (Mesha Dione, RN) FHR Baseline Rate : 145 (Mesha Dione, RN) FHR Baseline Changes: No Baseline Change (Mesha [place], RN) Variability: Moderate 6-25 bpm (Mesha [place], RN) Accelerations: 15X15 (Mesha [place], RN) Decelerations: None (Mesha [place], RN) Comments: patient pushing with contractions (Mesha [place], RN) Pushing: Coached on Pushing; Urge to Push (Mesha Dione, RN) Pushing Position: Pushing with Contractions; Pushing Lithotomy (Mesha [place], RN) Datetime: 10/11/2016 12:10 Pushing: Coached on Pushing (Mesha [place], RN) Pushing Position: Pushing with Contractions (Mesha [place], RN) Stage 2 Comments: tug of war pull technique (Mesha [place], RN) Datetime: 10/11/2016 12:05 Pushing: Coached on Pushing; Urge to Push (Mesha Chauard, RN) Pushing Position: Pushing with Contractions; Pushing Lithotomy (Mesha [place], RN) Datetime: 10/11/2016 12:03 NBP Sys/Raya/Mean (mmHg): 134 (QS system process) : 90 (QS system process) : 108 (QS system process) Pulse: 98 (QS system process) LaborFlag: Labor (QS system process) Datetime: 10/11/2016 12:00 Monitor Mode: External; Palpation (Mesha [place], RN) Frequency (min): 3.5-4 (Mesha Parham RN) Quality: Moderate (Mesha Parham RN) Duration (sec): 70-90 (Mesha Parham RN) Duration Criteria: Less than Two 120 Second Contractions (Mesha Parham RN) Pattern: Normal: <= 5 Contractions in 10 Minutes (Mesha Parham RN) Resting Tone (Palpate): Relaxed (Mesha Parham RN) Monitor Mode: Internal Scalp Electrode (Mesha Parham RN) FHR Baseline Rate : 150 (Mesha Parham RN) FHR Baseline Changes: No Baseline Change (Mesha Parham RN) Variability: Moderate 6-25 bpm (Mesha Parham RN) Accelerations: 15X15 (Mesha Parham RN) Decelerations: Early (Mesha Parham RN) Communication: RN at Bedside (Mesha Parham RN)
[2016-10-11] MEDS ORDERED: ACETAMINOPHEN WITH CODEINE #3 TABLET ONE (14:05)
[2016-10-11] MEDS: ACETAMINOPHEN WITH CODEINE #3 TABLET PO PRN ×2 (14:05→19:24)
--- NOTE | 2016-10-11 14:59 | Delivery Summary ---
Del Sum A-C Datetime Report Generated by CPN: 10/11/2016 14:59 ADMISSION DATA Chief Complaint: Signs/Symptoms Gestational HTN Indication for Induction: Gest. HTN/PreEclampsia/Eclampsia Admission Impression: Postterm, Intrauterine ; No Active Labor; Intact Membranes; Induction of Labor Admit Provider Comments: 26 y/o, here for IOL @ 40+4 for elevated blood pressures, smoked before she went to office, consents signed and informed consent given to patient and family 126/[address] Mcdaniel, Plan: Admit, Pitocin IOL DELIVERY PERSONNEL Delivery Doctor:: Soheila Lira CNM Nurse Medical Field Representative Certified:: Soheila Lira CNM Anesthesiologist:: Josse Espinoza MD Labor and Delivery Nurse:: Mesha Parham RNmail superintendent Nurse:: NONA Abreu Nursery Nurse:: Anaya Unger RN Group Home Paraprofessional/SECURITY PATROL OFFICER: Irais Osuna CNA II MATERNAL INFORMATION Delivery Anesthesia: Epidural Medications After Delivery: Pitocin Bolus-Please Comment; Pitocin Drip 20 Units/1000ml NSS; Cytotec 800mcg Per Rectum/Vagina Maternal Complications: None Provider Comments: viable male from OA to [place], double nuchal cord unable to reduce before delivery, baby placed on mothers abd and crying vigorously, cord clamped and cut after 2 minutes. Spont delivery of grossly nl placenta, 2 VC, EBL = 400cc, uterine atony, massage, Pitocin, cytotec 800mcg via rectum. Intact perineum G mother and father holding baby. Plans to bottle feed W LABOR SUMMARY EDC: 10/06/2016 00:00 No. Babies in Womb: 1 Attempted: No Labor Anesthesia: Epidural LABOR INFORMATION Reason for Induction: Gestational Hypertension Onset of Labor: 10/11/2016 02:21 Complete Dilatation: 10/11/2016 11:46 Oxytocin: Induction Group B Beta Strep: negative Antibiotics # of Doses: n/a Antibiotics Time of Last Dose: n/a Name of Antibiotic Given: n/a Steroids Given: None Reason Steroids Not Administered: Not Applicable Other Reason Not Administered: n/a MEMBRANES Membranes Rupture Method: Artificial Rupture of Membranes: 10/11/2016 08:14 Length of Rupture (hr): 4.33 Amniotic Fluid Color: Clear Amniotic Fluid Amount: Scant Amniotic Fluid Odor: Normal STAGES OF LABOR Stage 1 hr: 9 Stage 1 min: 25 Stage 2 hr: 0 Stage 2 min: 48 Stage 3 hr: 0 Stage 3 min: 5 Total Time in Labor hr: 10 Total Time in Labor min: 18 VAGINAL DELIVERY Episiotomy: None Laceration Extension: N/A Laceration Type: None Laceration Repair: Not Applicable Sponge Count Correct: N/A Sharps Count Correct: N/A CSECTION DELIVERY Primary Indication: N/A Secondary Indication: N/A CSection Incision: N/A BABY A INFORMATION Infant Delivery Date/Time: 10/11/2016 12:34 Method of Delivery: Vaginal Born in Route : No : N/A Forceps: N/A Vacuum Extraction: N/A Shoulder Dystocia : No PRESENTATION/POSITION BABY A Presentation: Cephalic Cephalic Presentation: Vertex Vertex Position: Left Occipital Anterior Breech Presentation: N/A PLACENTA INFORMATION BABY A Placenta Delivery Time : 10/11/2016 12:39 Placenta Method of Delivery: Spontaneous Placenta Status: Delivered SCORES BABY A Heart Rate 1 min: >100 bpm Resp Effort 1 min: Good Cry Reflex Irritability 1 min: Cough or Sneeze or Pulls Away Muscle Tone 1 min: Active Motion Color 1 min: Body [place], Extremities Blue SCORE 1 MIN: 9 Heart Rate 5 min: >100 bpm Resp Effort 5 min: Good Cry Reflex Irritability 5 min: Cough or Sneeze or Pulls Away Muscle Tone 5 min: Active Motion Color 5 min: Body [place], Extremities Blue SCORE 5 MIN: 9 INFANT INFORMATION BABY A Gestational Age at Delivery: 40.5 Gestational Status: Full Term- 39- 40.6 Weeks Outcome : Liveborn Condition : Stable Sex: Male IDENTIFICATION BABY A Verification Date/Time: 10/11/2016 12:56 ID Band Number: [id number] Mother's Name Verified: Yes Infant RN Verifying Infant: Mesha Parham RN/Martha Unger RN WEIGHT/LENGTH BABY A Birthweight (gm): 3150 Weight (lb): 6 Infant Weight (oz): 15 Length (in): 19.00 Length (cm): 48.26 CORD INFORMATION BABY A No. Cord Vessels: 3 Nuchal Cord : Around Neck x2, Tight Cord Blood Taken: Yes-For Eval (Mom's Blood Type - or O+) Infant Suction: Mouth ASSESSMENT BABY A Infant Complications: Multiple Late Decels Physical Findings at Delivery: Within Normal Limits Infant Respirations: Appears Normal Skin to Skin: Yes Skin to Skin Time (min): 5 Manager Winter/ALS Called : No Care By: Martha Unger NR Transferred To: Remains with Mother BABY B INFORMATION : N/A
--- NOTE | 2016-10-11 16:37 | Admission Physical ---
Datetime Report Generated by CPN: 10/11/2016 16:37 CURRENT ADMISSION Hx Assessment: The History has been Reviewed and is Current Chief Complaint: Signs/Symptoms Gestational HTN Indication for Induction: Gest. HTN/PreEclampsia/Eclampsia Admit Plan: Admit to Unit; Initiate Labor Induction Protocol ALLERGIES Medication Allergies: Yes Medication Allergies: iodine (10/11/2016) Latex: No Latex Allergies Food Allergies: None Environmental Allergies: None OBSTETRICAL HISTORY EDC: 10/06/2016 00:00 : 4 Para: 2 Term: 2 : 0 SAB: 0 IAB: 1 Ectopic: 0 Livin Cesareans: 0 VBACs: 0 Multiple Births: 0 Gestational Diabetes: No Rh Sensitization: No Incompetent Cervix: No TRI: No Infertility: No ART Treatment: No Uterine Anomaly: No IUGR: No Hx Previous C/S: No Macrosomia: No Hx Loss/Stillborn: No PIH: No Hx : No Placenta Previa/Abruption: No Depression/PP Depression: No PTL/PROM: No Post Hemorrhage: No Current Procedures: Ultrasound; NST Obstetrical History Comments: G1- eab 7 weeks G2- 12..2006-39 weeks baby girl 6 lbs 12 oz G3- 1..2011- 39 weeks babygirl 7 lbs 14oz G4- current SEE RECORDS Alcohol: No Marijuana : No Cocaine: No Other Illicit Drugs: No Illicit Drug Comments: patient claims that she "probably" took drugs during her . When asked which drugs patients claimed "I don't know" Cigarettes: Current Everyday Smoker. [phone] Cigarette Frequency: < 5 per day Cigarette Comments: "not as much as I used to" MEDICAL HISTORY Diabetes: No Blood Transfusion: No Pulmonary Disease (Asthma, TB): Yes Breast Disease: No Hypertension: No [employer] Surgery: No Heart Disease: No Hosp/Surgery: Yes Autoimmune Disorder: No Anesthetic Complications: No Kidney Disease: Yes Abnormal Pap Smear: No Neuro/Epilepsy: No Psychiatric Disorders: No Other Medical Diseases: No Hepatitis/Liver Disease: No Significant Family History: No Varicosities/Phlebitis: No Trauma/Violence : No Thyroid Dysfunction: No Medical History Comments: takes percocets- low back pain, neck, and shoulders gets from friends, street, uti diagnosed on sep 26, 2016 treated with keflex, appendix removed, nose reconstruction, states she has anxiety sometimes but has never been diagnosed and did not want it mentioned, asthma has advair inhaler(states she never had it filled), childbirth x 2, possible learning disorder? INFECTIOUS HISTORY Gonorrhea: No Genital Herpes: No Chlamydia: Yes Tuberculosis: No Syphilis: No Hepatitis: No HIV/AIDS Exposure: No Rash or Viral Illness: No HPV: No Infectious History Comments: fob may have hep C, pt unsure 11.3.2015 +chlam, treated 07.30.2016 PHYSICAL EXAM General: Normal HEENT: Normal Neurologic: Normal Thyroid: Deferred Heart: Normal Lungs: Normal Breast: Deferred Back: Normal Abdomen: Normal Genitourinary Exam: Normal Extremities: Normal DTRs: Normal Pelvic Type: Adequate Physical Exam Comments: GBS neg Smoker Abuse of Percocet- buying off the street Asthma UTI 08-12-16, 09-26-16 appears to not understand what she is being told/informatyion reviewed several times VAGINAL EXAM Dilatation: 5 MEMBRANES Membranes: Ruptured FETUS A EGA: 40.4 Monitoring: External US FHR- Baseline: 125 Variability: Marked >25bpm Decelerations: None Admit Comment: 26 y/o, here for IOL @ 40+4 for elevated blood pressures, smoked before she went to office, consents signed and informed consent given to patient and family 126/[address] Mcdaniel, Plan: Admit, Pitocin IOL PLANS FOR LABOR AND DELIVERY Labor and Delivery: None Pain Management: Epidural Feeding Preference: Formula Benefit of Breast Feed Discussed: Yes Circumcision: Yes INFORMED CONSENT Assignment: Marino Mcdaniel DO Signature: with User ID: [email or web address] : with User ID: [email or web address]
[2016-10-11] MEDS: IBUPROFEN 800 MG TABLET PO SCH ×2 (17:30→21:10)
--- NOTE | 2016-10-11 18:01 | L&D Flow Sheet ---
LD Flowsheet Datetime Report Generated by CPN: 10/11/2016 18:00 Datetime: 10/11/2016 16:30 Stage of : Recovery (Mesha Parham, RN) Datetime: 10/11/2016 16:05 IV/Blood Work: IV Saline Locked (Mesha Chauard, RN) Datetime: 10/11/2016 16:00 Stage of : Recovery (Mesha Parham, ) Pain Scale: 2 (Mesha Parham, RN) Pain Presence: Intermittent (Mesha Parham, RN) Pain Type: Cramping (Mesha Parham, ) Pain Location: Abdomen (Mesha Parham, RN) Pain Goal: 1 (Mesha Parham, ) Pain Relief Measures: Comfort Measures (Mesha [place], ) Datetime: 10/11/2016 15:48 Stage of : Recovery ([facility], ) NBP Sys/Raya/Mean (mmHg): 130 (QS system process) : 79 (QS system process) : 99 (QS system process) Pulse: 99 (QS system process) [facility] Datetime: 10/11/2016 15:38 NBP Sys/Raya/Mean (mmHg): 131 (QS system process) : 84 (QS system process) : 103 (QS system process) Pulse: 96 (QS system process) Datetime: 10/11/2016 15:00 Stage of : Recovery (Mesha Parham, ) Pain Scale: 2 (Mesha Parham, DUNG) Pain Presence: Intermittent (Mesha Parham, RN) Pain Type: Cramping (Mesha Parham, RN) Pain Location: Abdomen (Mesha Parham, ) Pain Goal: 1 (Mesha Parham, ) Pain Relief Measures: Comfort Measures (Mesha Parham, ) Datetime: 10/11/2016 14:45 Stage of : Recovery (Mesha Parham, ) Datetime: 10/11/2016 14:33 Stage of : Recovery (Mesha Parham, DUNG) NBP Sys/Raya/Mean (mmHg): 137 (QS system process) : 78 (QS system process) : 100 (QS system process) Pulse: 101 (QS system process) Respirations: 12 (Mesha Parham, RN) Datetime: 10/11/2016 14:30 Stage of : Recovery (Mesha Parham, ) Pain Scale: 2 (Mesha Parham, RN) Pain Presence: Intermittent (Mesha Parham, RN) Pain Type: Cramping; Ache (Mesha Parham, RN) Pain Location: Abdomen (Mesha Parham, RN) Pain Goal: 1 (Mesha Parham, RN) Pain Relief Measures: Comfort Measures (Mesha Parham, RN) Datetime: 10/11/2016 14:18 Stage of : Recovery (Mesha Parham RN) NBP Sys/Raya/Mean (mmHg): 133 (QS system process) : 77 (QS system process) : 97 (QS system process) Pulse: 99 (QS system process) Respirations: 16 (Mesha Parham RN) Datetime: 10/11/2016 14:15 Stage of : Recovery (Mesha Parham, DUNG) Datetime: 10/11/2016 14:07 Stage of : Recovery (Mesha Parham RN) Pain Scale: 3 (Mesha Parham RN) Pain Presence: Intermittent (Mesha Parham RN) Pain Type: Cramping (Mesha Parham RN) Pain Location: Abdomen; Head (Mesha Parham RN) Pain Goal: 1 (Mesha Parham RN) Pain Relief Measures: Pain Medication Given; Comfort Measures (Mesha Parham RN) Datetime: 10/11/2016 14:03 Stage of : Recovery (Mesha Parham RN) NBP Sys/Raya/Mean (mmHg): 132 (QS system process) : 80 (QS system process) : 100 (QS system process) Pulse: 99 (QS system process) Respirations: 12 (Mesha Parham RN) Datetime: 10/11/2016 14:00 Stage of : Recovery (Mesha Parham RN)
[2016-10-11] MEDS: DOCUSATE SODIUM 100 MG CAPSULE PO SCH (18:17)
[2016-10-11] MEDS: FERROUS SULFATE 325 MG TABLET PO SCH (18:18)
--- NOTE | 2016-10-11 19:01 | L&D Flow Sheet ---
LD Flowsheet Datetime Report Generated by CPN: 10/11/2016 19:00 Datetime: 10/11/2016 16:30 Stage of : Recovery (Mesha Parham, RN) Datetime: 10/11/2016 16:05 IV/Blood Work: IV Saline Locked (Mesha Chauard, RN) Datetime: 10/11/2016 16:00 Stage of : Recovery (Mesha Parham, ) Pain Scale: 2 (Mesha Parham, RN) Pain Presence: Intermittent (Mesha Parham, RN) Pain Type: Cramping (Mesha Parham, ) Pain Location: Abdomen (Mesha Parham, RN) Pain Goal: 1 (Mesha Parham, ) Pain Relief Measures: Comfort Measures (Mesha Dione, ) Datetime: 10/11/2016 15:48 Stage of : Recovery ([facility], ) NBP Sys/Raya/Mean (mmHg): 130 (QS system process) : 79 (QS system process) : 99 (QS system process) Pulse: 99 (QS system process) [facility]: [facility], [facility] Datetime: 10/11/2016 15:38 NBP Sys/Raya/Mean (mmHg): 131 (QS system process) : 84 (QS system process) : 103 (QS system process) Pulse: 96 (QS system process) Datetime: 10/11/2016 15:00 Stage of : Recovery (Mesha Parham, ) Pain Scale: 2 (Mesha Parham, DUNG) Pain Presence: Intermittent (Mesha Parham, RN) Pain Type: Cramping (Mesha Parham, RN) Pain Location: Abdomen (Mesha Parham, ) Pain Goal: 1 (Mesha Parham, ) Pain Relief Measures: Comfort Measures (Mesha Parham, ) Datetime: 10/11/2016 14:45 Stage of : Recovery (Mesha Parham, ) Datetime: 10/11/2016 14:33 Stage of : Recovery (Mesha Parham, DUNG) NBP Sys/Raya/Mean (mmHg): 137 (QS system process) : 78 (QS system process) : 100 (QS system process) Pulse: 101 (QS system process) Respirations: 12 (Mesha Parham, RN) Datetime: 10/11/2016 14:30 Stage of : Recovery (Mesha Parham, ) Pain Scale: 2 (Mesha Parham, RN) Pain Presence: Intermittent (Mesha Parham, RN) Pain Type: Cramping; Ache (Mesha Parham, RN) Pain Location: Abdomen (Mesha Parham, RN) Pain Goal: 1 (Mesha Parham, RN) Pain Relief Measures: Comfort Measures (Mesha Parham, RN) Datetime: 10/11/2016 14:18 Stage of : Recovery (Mesha Parham RN) NBP Sys/Raya/Mean (mmHg): 133 (QS system process) : 77 (QS system process) : 97 (QS system process) Pulse: 99 (QS system process) Respirations: 16 (Mesha Parham RN) Datetime: 10/11/2016 14:15 Stage of : Recovery (Mesha Parham, DUNG) Datetime: 10/11/2016 14:07 Stage of : Recovery (Mesha Parham RN) Pain Scale: 3 (Mesha Parham RN) Pain Presence: Intermittent (Mesha Parham RN) Pain Type: Cramping (Mesha Parham RN) Pain Location: Abdomen; Head (Mesha Parham RN) Pain Goal: 1 (Mesha Pahram RN) Pain Relief Measures: Pain Medication Given; Comfort Measures (Mesha Parham RN) Datetime: 10/11/2016 14:03 Stage of : Recovery (Mesha Lafayette, RN) NBP Sys/Raya/Mean (mmHg): 132 (QS system process) : 80 (QS system process) : 100 (QS system process) Pulse: 99 (QS system process) Respirations: 12 (Mesha Lafayette, RN) Datetime: 10/11/2016 14:00 Stage of : Recovery (Mesha Dione, RN) Datetime: 10/11/2016 13:58 Stage of : Recovery (Mesha Lafayette, RN) NBP Sys/Raya/Mean (mmHg): 129 (QS system process) : 89 (QS system process) : 106 (QS system process) Pulse: 97 (QS system process) Respirations: 14 (Mesha Parham RN) Datetime: 10/11/2016 13:45 Stage of : Recovery (Mesha Parham RN) Pain Scale: 3 (Mesha Parham RN) Pain Presence: Intermittent (Mesha Parham RN) Pain Type: Cramping; Ache (Mesha Parham RN) Pain Location: Abdomen; Head (Mesha Parham RN) Pain Goal: 1 (Mesha Parham RN) Pain Relief Measures: Comfort Measures (Mesha Parham RN) Datetime: 10/11/2016 13:30 Stage of : Recovery (Mesha Parham RN) Pain Scale: 2 (Mesha Parham RN) Pain Presence: Intermittent (Mesha Parham RN) Pain Type: Cramping (Mesha Parham RN) Pain Location: Abdomen (Mesha Parham RN) Pain Goal: 1 (Mesha Lafayette, RN) Pain Relief Measures: Comfort Measures (Mesha Chauard, RN) Datetime: 10/11/2016 13:28 Stage of : Recovery (Mesha Chauard, RN) Datetime: 10/11/2016 13:27 Stage of : Recovery (Mesha Chauard, RN) Datetime: 10/11/2016 13:19 Stage of : Recovery (Mesha Chauard, RN) NBP Sys/Raya/Mean (mmHg): 136 (QS system process) : 73 (QS system process) : 95 (QS system process) Pulse: 92 (QS system process) Respirations: 12 (Mesha Parham RN) Datetime: 10/11/2016 13:15 Stage of : Recovery (Mesha Parham RN) Pain Scale: 2 (Mesha Parham RN) Pain Presence: Intermittent (Mesha Parham RN) Pain Type: Cramping (Mesha Parham RN) Pain Location: Abdomen (Mesha Parham RN) Pain Goal: 1 (Mesha Parham RN) Pain Relief Measures: Comfort Measures (Mesha Parham RN) Datetime: 10/11/2016 13:10 Stage of : Recovery (Mesha Parham RN) Temperature (F): 98.7 (Mesha Parham RN) Temperature (C): 37.1 (QS system process) Temperature Route: Oral (Mesha Parham RN) Pain Scale: 2 (Mesha Parham RN) Pain Presence: Intermittent (Mesha Parham RN) Pain Type: Cramping; Ache (Mesha Parham RN) Pain Location: Abdomen (Mesha Parham RN) Pain Goal: 1 (Mesha Parham RN) Pain Relief Measures: Comfort Measures (Mesha Parham RN) Datetime: 10/11/2016 13:07 Stage of : Recovery (Mesha Parham RN) NBP Sys/Raya/Mean (mmHg): 122 (QS system process) : 62 (QS system process) : 82 (QS system process) Pulse: 99 (QS system process) Respirations: 14 (Mesha Parham RN) Datetime: 10/11/2016 13:01 NBP Sys/Raya/Mean (mmHg): 225 (Annotations: Patient lying on BP cuff) (Mesha Parham RN) : 149 (QS system process) : 177 (QS system process) Pulse: 137 (QS system process) Datetime: 10/11/2016 13:00 Stage of : Recovery (Mesha Dione, RN) Datetime: 10/11/2016 12:41 Anesthesia Comments: Epidural pump off (Mesha Dione, RN) Datetime: 10/11/2016 12:40 Stage of : Recovery (Mesha Lafayette, RN) Datetime: 10/11/2016 12:38 NBP Sys/Raya/Mean (mmHg): 142 (QS system process) : 79 (QS system process) : 95 (QS system process) Pulse: 88 (QS system process) LaborFlag: Labor (QS system process) Datetime: 10/11/2016 12:35 Stage of : Labor (Mesha Parham RN) NBP Sys/Raya/Mean (mmHg): 132 (QS system process) : 89 (QS system process) : 105 (QS system process) Pulse: 106 (QS system process) Respirations: 18 (Mesha Parham RN) Monitor Mode: External; Palpation (Mesha Parham, DUNG) Frequency (min): 3-5 (Mesha Parham, RN) Quality: Moderate (Mesha Parham RN) Duration (sec): 60-110 (Mesha Parham RN) Duration Criteria: Less than Two 120 Second Contractions (Mesha Parham RN) Pattern: Normal: <= 5 Contractions in 10 Minutes (Mesha Parham, RN) Resting Tone (Palpate): Relaxed (Mesha Parham, DUNG) LaborFlag: Labor (QS system process) Datetime: 10/11/2016 12:34 Monitor Mode: External US (Mesha Dione, RN) FHR Baseline Rate : 130 (Mesha Lafayette, RN) FHR Baseline Changes: No Baseline Change (Mesha [place], RN) Variability: Moderate 6-25 bpm (Mesha [place], RN) Accelerations: 15X15 (Mesha Dione, RN) Decelerations: None (Mesha Dione, RN) Comments: patient pushing with contractions (Mesha Lafayette, RN) Datetime: 10/11/2016 12:32 Pushing: Coached on Pushing; Urge to Push (Mesha Dione, RN) Pushing Position: Pushing with Contractions; Pushing Lithotomy (Mesha Lafayette, RN) Pushing Progress: Descent with Pushing; Presenting Part Visible; with Pushing; Pushing Effectively with Contractions (Mesha Lafayette, RN) Datetime: 10/11/2016 12:30 Pitocin (milliunit): Pitocin Increased to (milliunits) @ (Annotations: 8) (Mesha Lafayette, RN) Datetime: 10/11/2016 12:23 Pushing: Coached on Pushing; Urge to Push (Mesha Lafayette, RN) Pushing Position: Pushing with Contractions; Pushing Lithotomy (Mesha [place], RN) Pushing Progress: Descent with Pushing; Pushing Effectively with Contractions (Mesha Lafayette, RN) Datetime: 10/11/2016 12:21 Pushing: Coached on Pushing; Urge to Push (Mesha Lafayette, RN) Pushing Position: Pushing with Contractions (Mesha Dione, RN) Pushing Progress: Descent with Pushing; Ineffective Pushing (Mesha Lafayette, RN) Stage 2 Comments: poor maternal effort with pushing (Mesha Lafayette, RN) Datetime: 10/11/2016 12:15 Monitor Mode: Internal Scalp Electrode (Mesha Lafayette, RN) FHR Baseline Rate : 145 (Mesha Dione, RN) FHR Baseline Changes: No Baseline Change (Mesha Dione, RN) Variability: Moderate 6-25 bpm (Mesha Lafayette, RN) Accelerations: 15X15 (Mesha Dione, RN) Decelerations: None (Mesha Lafayette, RN) Comments: patient pushing with contractions (Mesha Lafayette, RN) Pushing: Coached on Pushing; Urge to Push (Mesha Lafayette, RN) Pushing Position: Pushing with Contractions; Pushing Lithotomy (Mesha Dione, RN) Datetime: 10/11/2016 12:10 Pushing: Coached on Pushing (Mesha Lafayette, RN) Pushing Position: Pushing with Contractions (Mesha Dione, RN) Stage 2 Comments: tug of war pull technique (Mesha Lafayette, RN) Datetime: 10/11/2016 12:05 Pushing: Coached on Pushing; Urge to Push (Mesha Parham RN) Pushing Position: Pushing with Contractions; Pushing Lithotomy (Mesha Parham RN) Datetime: 10/11/2016 12:03 NBP Sys/Raya/Mean (mmHg): 134 (QS system process) : 90 (QS system process) : 108 (QS system process) Pulse: 98 (QS system process) LaborFlag: Labor (QS system process) Datetime: 10/11/2016 12:00 Monitor Mode: External; Palpation (Mesha Parham RN) Frequency (min): 3.5-4 (Mesha Parham RN) Quality: Moderate (Mesha Parham RN) Duration (sec): 70-90 (Mesha Parham, RN) Duration Criteria: Less than Two 120 Second Contractions (Mesha Parham, RN) Pattern: Normal: <= 5 Contractions in 10 Minutes (Mesha Parham, RN) Resting Tone (Palpate): Relaxed (Mesha Parham, RN) Monitor Mode: Internal Scalp Electrode (Mesha Parham, RN) FHR Baseline Rate : 150 (Mesha Parham, RN) FHR Baseline Changes: No Baseline Change (Mesha Parham, RN) Variability: Moderate 6-25 bpm (Mesha Chauard, RN) Accelerations: 15X15 (Mesha Parham, RN) Decelerations: Early (Mesha Parham, RN) Communication: RN at Bedside (Mesha Parham, RN) Datetime: 10/11/2016 11:59 Pushing: Coached on Pushing; Urge to Push (Mesha Parham, RN) Pushing Position: Pushing with Contractions; Pushing Lithotomy (Mesha Parham, RN) Communication: Provider at Bedside (Mesha Parham, RN) Provider Notified (Name): Kaycee Lira CNMary at bedside for delivery (Mesha Parham, RN) Datetime: 10/11/2016 11:55 I/O Interventions: Prieto Discontinued (Mesha Dione, RN) Datetime: 10/11/2016 11:52 Comments: RN at bedside continuoulsy assessing FHT while patient pushes with contractions (Mesha Chauard, RN) Datetime: 10/11/2016 11:50 Preparation for Delivery: Setup for Delivery (Mesha Lafayette, RN) Datetime: 10/11/2016 11:48 NBP Sys/Raya/Mean (mmHg): 127 (QS system process) : 77 (QS system process) : 91 (QS system process) Pulse: 101 (QS system process) LaborFlag: Labor (QS system process) Datetime: 10/11/2016 11:46 Dilatation (cm): 10.0 (Mesha Parham RN) Effacement (%): 100 (Mesha Parham RN) Station: -1 (Mesha Parham, RN) Exam by: Dr. Chester (Mesha Parham, RN) Vaginal Bleeding: Normal Show (Mesha Parham RN) Cervix, Consistency: Soft (Mesha Parham, RN) Cervix, Position: Midposition (Mesha Parahm, RN) Pitocin (milliunit): Pitocin Started (milliunits) @ 6 (Mesha Parham, RN) Medication Comments: Per Dr. Chester who is at bedside (Mesha Parham, RN) Provider Reviewed Strip: Yes (Mesha Parham RN) Communication: RN at Bedside; RN Reviewed Strip; Provider at Bedside (Mesha Parham RN) Provider Notified (Name): Dr. Chester at bedside assessing patient (Mesha Parham RN) Datetime: 10/11/2016 11:45 Monitor Mode: External; Palpation (Mesha Parham, RN) Frequency (min): 3-4 (Mesha Chauard, RN) Quality: Moderate (Mesha Lafayette, RN) Duration (sec): 60-90 (Mesha Dione, RN) Duration Criteria: Less than Two 120 Second Contractions (Mesha Chauard, RN) Pattern: Normal: <= 5 Contractions in 10 Minutes (Mesha Lafayette, RN) Resting Tone (Palpate): Relaxed (Mesha Lafayette, RN) Monitor Mode: Internal Scalp Electrode (Mesha Parham, RN) FHR Baseline Rate : 145 (Mesha Parham, RN) FHR Baseline Changes: No Baseline Change (Mesha Chauard, RN) Variability: Moderate 6-25 bpm (Mesha Dione, RN) Accelerations: 10X10 (Mesha Lafayette, RN) Datetime: 10/11/2016 11:33 Stage of : Labor (Mesha Parham, RN) NBP Sys/Raya/Mean (mmHg): 137 (QS system process) : 82 (QS system process) : 103 (QS system process) Pulse: 90 (QS system process) Respirations: 20 (Mesha Parham, RN) LaborFlag: Labor (QS system process) Datetime: 10/11/2016 11:31 NBP Sys/Raya/Mean (mmHg): 128 (QS system process) : 82 (QS system process) : 100 (QS system process) Pulse: 80 (QS system process) LaborFlag: Labor (QS system process) Datetime: 10/11/2016 11:30 Monitor Mode: External; Palpation (Mesha Parham, DUNG) Frequency (min): 2-4 (Mesha Praham, DUNG) Frequency (min): 4.-4.5 (Mesha Parham, RN) Quality: Moderate (Mesha Parham, RN) Duration (sec): 60-100 (Mesha Parham, RN) Duration (sec): 70-90 (Mesha Parham, RN) Duration Criteria: Less than Two 120 Second Contractions (Mesha Parham, RN) Pattern: Normal: <= 5 Contractions in 10 Minutes (Mesha Parham, RN) Resting Tone (Palpate): Relaxed (Mesha Parham, RN) Monitor Mode: Internal Scalp Electrode (Mesha Parham, RN) FHR Baseline Rate : 140 (Mesha Parham, RN) FHR Baseline Changes: No Baseline Change (Mesha Parham, RN) Variability: Moderate 6-25 bpm (Mesha Parham, RN) Accelerations: 15X15 (Mesha Parham, RN) Decelerations: Late; Prolonged (Mesha Parham, RN) Actions for Decelerations: Side to Side; Provider Notified (Mesha Parham, RN) Comments: 4.5 minute prolonged latye with return to baseline following interventions (Mesha Parham, RN) Communication: RN at Bedside (Mesha Parham, RN) Datetime: 10/11/2016 11:27 Patient Position/Activity: Right Lateral; Low Fowlers (Mesha Parham, RN) Communication: RN at Bedside; RN Reviewed Strip (Mesha Parham, RN) Datetime: 10/11/2016 11:18 Patient Position/Activity: Left Lateral; Low Fowlers (Mesha Chauard, RN) Communication: RN at Bedside (Mesha Chauard, RN) Datetime: 10/11/2016 11:15 Monitor Mode: External; Palpation (Mesha Parham, RN) Monitor Mode: External (Mesha Parham, RN) Frequency (min): 2-3 (Mesha Chauard, RN) Frequency (min): 3-4 (Mesha Parham, RN) Quality: Moderate (Mesha Chauard, RN) Duration (sec): 60-80 (Mesha Lafayette, RN) Duration (sec): 60-90 (Mesha Lafayette, RN) Duration Criteria: Less than Two 120 Second Contractions (Mesha Parham, RN) Pattern: Normal: <= 5 Contractions in 10 Minutes (Mesha Parham, RN) Resting Tone (Palpate): Relaxed (Mesha Parhma, RN) Monitor Mode: Internal Scalp Electrode (Mesha Parham, RN) FHR Baseline Rate : 145 (Mesha Parham, RN) FHR Baseline Changes: No Baseline Change (Mesha Parham, RN) Variability: Moderate 6-25 bpm (Mesha Parham, RN) Accelerations: 15X15 (Mesha Parham, RN) Decelerations: Early (Mesha Parham, RN) Actions for Decelerations: Side to Side (Mesha Parham RN) Communication: RN at Bedside (Mesha Parham RN) Datetime: 10/11/2016 11:10 Stage of : Labor (Mesha Parham, DUNG) NBP Sys/Raya/Mean (mmHg): 119 (QS system process) : 83 (QS system process) : 95 (QS system process) Pulse: 82 (QS system process) Respirations: 14 (Mesha Lafayette, RN) LaborFlag: Labor (QS system process) Datetime: 10/11/2016 11:00 Monitor Mode: External (Mesha Dione, RN) Frequency (min): 3-4 (Mesha Chauard, RN) Quality: Moderate (Mesha Lafayette, RN) Duration (sec): 60-90 (Mesha Dione, RN) Duration Criteria: Less than Two 120 Second Contractions (Mesha Dione, RN) Pattern: Normal: <= 5 Contractions in 10 Minutes (Mesha Dione, RN) Resting Tone (Palpate): Relaxed (Mesha Lafayette, RN) Monitor Mode: Internal Scalp Electrode (Mesha Dione, RN) FHR Baseline Rate : 150 (Mesha [place], RN) FHR Baseline Changes: No Baseline Change (Mesha Dione, RN) Variability: Moderate 6-25 bpm (Mesha Lafayette, RN) Accelerations: 10X10 (Mesha Lafayette, RN) Decelerations: Late (Mesha Dione, RN) Datetime: 10/11/2016 10:55 Communication: Provider at Bedside (Mesha Parham, RN) Provider Notified (Name): anesthesia at bedside assessing patient's pain (Mesha Dione, RN) Datetime: 10/11/2016 10:49 Temperature (F): 98.1 (Mesha Parham, RN) Temperature (C): 36.7 (QS system process) LaborFlag: Labor (QS system process) Datetime: 10/11/2016 10:48 Actions for Decelerations: Pitocin Off; IV Bolus (Mesha Parham, RN) Pitocin (milliunit): Pitocin Discontinued (Mesha Parham, RN) Datetime: 10/11/2016 10:46 Patient Position/Activity: Hands-Knees (Mesha Parham RN) Communication: RN at Bedside (Mesha Parham RN) Datetime: 10/11/2016 10:45 Monitor Mode: External; Palpation (Mesha Parham RN) Frequency (min): 3-4 (Mesha Parham RN) Quality: Moderate (Mesha Parham, RN) Duration (sec): 60-90 (Mesha Parham, DUNG) Duration Criteria: Less than Two 120 Second Contractions (Mesha Parham, DUNG) Pattern: Normal: <= 5 Contractions in 10 Minutes (Mesha Parham RN) Resting Tone (Palpate): Relaxed (Mesha Parham, DUNG) Monitor Mode: Internal Scalp Electrode (Mesha Parham, DUNG) FHR Baseline Rate : 150 (Mesha Parham RN) FHR Baseline Changes: No Baseline Change (Mesha Parham RN) Variability: Moderate 6-25 bpm (Mesha Parham, RN) Accelerations: 15X15 (Mesha Parham, RN) Decelerations: Late (Mesha Parham, RN) Actions for Decelerations: Side to Side; Hands and Knees; Pitocin Off; IV Bolus (Mesha Parham, DUNG) Pitocin (milliunit): Pitocin Remains (milliunits) @ (Annotations: 6) (Mesha Parham, RN) Datetime: 10/11/2016 10:33 Stage of : Labor (Mesha Parham RN) NBP Sys/Raya/Mean (mmHg): 119 (QS system process) : 68 (QS system process) : 87 (QS system process) Pulse: 80 (QS system process) Respirations: 18 (Mesha Parham RN) LaborFlag: Labor (QS system process) Datetime: 10/11/2016 10:30 Monitor Mode: External (Mesha Parham, DUNG) Frequency (min): 2-4 (Mesha Parham, DUNG) Quality: Moderate (Mesha Parham RN) Duration (sec): 60-80 (Mesha Parham, RN) Duration Criteria: Less than Two 120 Second Contractions (Mesha Parham, RN) Pattern: Normal: <= 5 Contractions in 10 Minutes (Mesha Parham, RN) Resting Tone (Palpate): Relaxed (Mesha Parham, DUNG) Monitor Mode: Internal Scalp Electrode (Mesha Parham, DUNG) FHR Baseline Rate : 150 (Mesha Parham, RN) Variability: Moderate 6-25 bpm (Mesha Parham, RN) Accelerations: 15X15 (Mesha Parham, RN) Decelerations: Early; Late (JANELLE Weinstein Pitocin (milliunit): Pitocin Remains (milliunits) @ (Annotations: 6) (Mesha Parham RN) Datetime: 10/11/2016 10:25 Communication: Call/Page Placed to Provider (Mesha Parham RN) Provider Notified (Name): Dr. Turner called notifying of increased pain reported by patient. states she will come to L_D to assess patient (Mesha Parham RN) Datetime: 10/11/2016 10:23 Provider Notified (Name): Kaycee Lira CNM notified of patient request to redose epidural due to increased pain. Orders received to call anesthesia to discuss (Mesha Parham RN) Notification Reason: Pain (Mesha Parham RN) Datetime: 10/11/2016 10:18 Stage of : Labor (Mesha Parham RN) NBP Sys/Raya/Mean (mmHg): 117 (QS system process) : 67 (QS system process) : 87 (QS system process) Pulse: 80 (QS system process) Respirations: 18 (Mesha Parham RN) Pain Scale: 3 (Mesha Parham RN) Pain Presence: Intermittent (Mesha Parham RN) Pain Type: Pressure (Mesha Parham RN) Pain Location: Abdomen; Back; Perineum (Mesha Parham RN) Pain Goal: 1 (Mesha Parham RN) Pain Relief Measures: Comfort Measures (Annotations: requesting additional pain relief; provider aware) (Mesha Parham RN) LaborFlag: Labor (QS system process) Datetime: 10/11/2016 10:15 Monitor Mode: External (Mesha Parham RN) Monitor Interventions for UA: [place] Adjusted (Mesha Parham RN) Resting Tone (Palpate): Relaxed (Mesha Parham RN) Contraction Comments: UTD (Mesha Parham RN) Monitor Mode: Internal Scalp Electrode (Mesha Parham RN) FHR Baseline Rate : 140 (Mesha Parham RN) FHR Baseline Changes: No Baseline Change (Mesha Parham RN) Variability: Moderate 6-25 bpm (Mesha Parham RN) Accelerations: 15X15 (Mesha Parham RN) Decelerations: Early; Late (Mesha Parham RN) Pitocin (milliunit): Pitocin Remains (milliunits) @ (Annotations: 6) (Mesha Parham RN) Datetime: 10/11/2016 10:06 Dilatation (cm): 9.0 (Mesha Parham RN) Effacement (%): 100 (Mesha Parham RN) Station: -1 (Mesha Parham RN) Exam by: Kaycee Lira CNM (Mesha Parham, DUNG) Vaginal Bleeding: Normal Show (Mesha Parham RN) Cervix, Consistency: Soft (Mesha Parham, RN) Cervix, Position: Midposition (Mesha Parham, DUNG) Provider Reviewed Strip: Yes (Mesha Parham RN) Communication: RN at Bedside; RN Reviewed Strip; Provider at Bedside (Mesha Parham RN) Datetime: 10/11/2016 10:03 Stage of : Labor (Mesha Parham RN) NBP Sys/Raya/Mean (mmHg): 131 (QS system process) : 79 (QS system process) : 100 (QS system process) Pulse: 81 (QS system process) Respirations: 18 (Mesha Parham RN) LaborFlag: Labor (QS system process) Datetime: 10/11/2016 10:00 Monitor Mode: External (Mesha Parham RN) Monitor Interventions for UA: [place] Adjusted (Mesha Parham RN) Quality: Moderate to Strong (Mesha Parham RN) Resting Tone (Palpate): Relaxed (Mesha Parham RN) Contraction Comments: unable to determine due to patient position (Mesha Parham, DUNG) Monitor Mode: Internal Scalp Electrode (Mesha Parham, DUNG) FHR Baseline Rate : 140 (Mesha Parham RN) FHR Baseline Changes: No Baseline Change (Mesha Parham RN) Variability: Moderate 6-25 bpm (Mesha Parham RN) Accelerations: 15X15 (Mesha Parham, RN) Decelerations: None (Mesha Parham RN) Pitocin (milliunit): Pitocin Increased to (milliunits) @ (Annotations: 6) (Mesha Parham, DUNG) Datetime: 10/11/2016 09:52 Antiemetics/Antacids: Maalox PO (ml) @ 30 (Mesha Parham RN) Datetime: 10/11/2016 09:45 Monitor Mode: External (Mesha Parham, DUNG) Frequency (min): x2 (Mesha Parham, RN) Quality: Moderate (Mesha Parham, RN) Duration (sec): 100/110 (Mesha Parham, RN) Duration Criteria: Less than Two 120 Second Contractions (Mesha Parham, RN) Pattern: Normal: <= 5 Contractions in 10 Minutes (Mesha Parham, RN) Resting Tone (Palpate): Relaxed (Mesha Parham, RN) Monitor Mode: Internal Scalp Electrode (Mesha Parham, RN) FHR Baseline Rate : 130 (Mesha Parham, RN) FHR Baseline Changes: No Baseline Change (Mesha Parham, RN) Variability: Moderate 6-25 bpm (Mesha Parham, RN) Accelerations: 15X15 (Mesha Parham, RN) Decelerations: Early; Late (Mesha Parham, RN) Actions for Decelerations: Side to Side; Provider Reviewed Strip; Provider Notified (Mesha Parham, RN) Comments: Kaycee Lira CNMary on unit (Mesha Parham, DUNG) Pitocin (milliunit): Pitocin Remains (milliunits) @ (Annotations: 4) (Mesha Parham, RN) Datetime: 10/11/2016 09:43 Stage of : Labor (Mesha Parham RN) NBP Sys/Raya/Mean (mmHg): 134 (QS system process) : 75 (QS system process) : 94 (QS system process) Pulse: 84 (QS system process) Respirations: 16 (Mesha Parham RN) Patient Position/Activity: Peanut Ball (Mesha Parham RN) LaborFlag: Labor (QS system process) Datetime: 10/11/2016 09:39 Stage of : Labor (Mesha Parham RN) NBP Sys/Raya/Mean (mmHg): 111 (QS system process) : 64 (QS system process) : 81 (QS system process) Pulse: 85 (QS system process) Respirations: 18 (Mesha Parham RN) Patient Position/Activity: Left Lateral; Low Fowlers (Mesha Parham RN) Communication: RN at Bedside; RN Reviewed Strip (Mesha Parham RN) LaborFlag: Labor (QS system process) Datetime: 10/11/2016 09:30 Monitor Mode: External (Mesha Lafayette, RN) Frequency (min): 3-6 (Mesha Lafayette, RN) Quality: Moderate (Mesha [place], RN) Duration (sec): 60-90 (Mesha Dione, RN) Duration Criteria: Less than Two 120 Second Contractions (Mesha Lafayette, RN) Pattern: Normal: <= 5 Contractions in 10 Minutes (Mesha Dione, RN) Resting Tone (Palpate): Relaxed (Mesha Dione, RN) Monitor Mode: Internal Scalp Electrode (Mesha Dione, RN) FHR Baseline Rate : 135 (Mesha Dione, RN) FHR Baseline Changes: No Baseline Change (Mesha Dione, RN) Variability: Moderate 6-25 bpm (Mesha Lafayette, RN) Accelerations: 15X15 (Mesha Lafayette, RN) Decelerations: None (Mesha Dione, RN) Pitocin (milliunit): Pitocin Increased to (milliunits) @ (Annotations: 4) (Mesha Lafayette, RN) Datetime: 10/11/2016 09:15 Monitor Mode: External (Mesha Lafayette, RN) Frequency (min): 4.5-5 (Mesha Lafayette, RN) Quality: Moderate (Mesha Lafayette, RN) Duration (sec): 60-100 (Mesha Lafayette, RN) Duration Criteria: Less than Two 120 Second Contractions (Mesha Parham, RN) Pattern: Normal: <= 5 Contractions in 10 Minutes (Mesha Parham, RN) Resting Tone (Palpate): Relaxed (Mesha Parham, RN) Monitor Mode: Internal Scalp Electrode (Mesha Parham, RN) FHR Baseline Rate : 135 (Mesha Parham, RN) FHR Baseline Changes: No Baseline Change (Mesha Parham, RN) Variability: Moderate 6-25 bpm (Mesha Parham, RN) Accelerations: 10X10 (Mesha Parham, RN) Decelerations: Early (Mesha Parham, RN) Pitocin (milliunit): Pitocin Remains (milliunits) @ (Annotations: 2) (Mesha Parham, RN) Datetime: 10/11/2016 09:09 Stage of : Labor (Mesha Parham, DUNG) NBP Sys/Raya/Mean (mmHg): 119 (QS system process) : 70 (QS system process) : 88 (QS system process) Pulse: 92 (QS system process) Respirations: 15 (Mesha Parham, RN) LaborFlag: Labor (QS system process) Datetime: 10/11/2016 09:00 Monitor Mode: External (Mesha Parham, RN) Frequency (min): 4-4.5 (Mesha Parham, RN) Quality: Moderate (Mesha Parham, RN) Duration (sec): 70-100 (Mesha Parham, RN) Duration Criteria: Less than Two 120 Second Contractions (Mesha Parham, RN) Pattern: Normal: <= 5 Contractions in 10 Minutes (Mesha Parham, RN) Resting Tone (Palpate): Relaxed (Mesha Parham, RN) Monitor Mode: Internal Scalp Electrode (Mesha Parham, RN) FHR Baseline Rate : 140 (Mesha Parham, RN) FHR Baseline Changes: No Baseline Change (Mesha Parham, RN) Variability: Moderate 6-25 bpm (Mesha Parham, RN) Accelerations: 15X15 (Mesah Parham, RN) Decelerations: None (Mesha Parham, RN) Comments: reports positive movement (Mesha Parham, RN) Pitocin (milliunit): Pitocin Remains (milliunits) @ (Annotations: 2) (Mesha Parham, RN) Datetime: 10/11/2016 08:47 Pitocin (milliunit): Pitocin Started (milliunits) @ 2 (Mesha Parham, RN) Analgesics/Sedatives: Tylenol (mg) @ 650 mg PO (Mesha Parham, RN) Medication Comments: Pitocin infusion restarted per Kaycee Lira CNM (Mesha Parham, RN) Datetime: 10/11/2016 08:45 Monitor Mode: External (Mesha Lafayette, RN) Frequency (min): 2.5-4 (Mesha Lafayette, RN) Quality: Moderate (Mesha Lafayette, RN) Duration (sec): 50-100 (Mesha Lafayette, RN) Duration Criteria: Less than Two 120 Second Contractions (Mesha Lafayette, RN) Pattern: Normal: <= 5 Contractions in 10 Minutes (Mesha Lafayette, RN) Resting Tone (Palpate): Relaxed (Mesha Lafayette, RN) Monitor Mode: Internal Scalp Electrode (Mesha Dione, RN) FHR Baseline Rate : 145 (Mesha Lafayette, RN) FHR Baseline Changes: No Baseline Change (Mesha Lafayette, RN) Variability: Moderate 6-25 bpm (Mesha Lafayette, RN) Accelerations: 15X15 (Mesha Dione, RN) Decelerations: None (Mesha Lafayette, RN) Datetime: 10/11/2016 08:40 Stage of : Labor (Mesha Lafayette, RN) NBP Sys/Raya/Mean (mmHg): 120 (QS system process) : 75 (QS system process) : 92 (QS system process) Pulse: 90 (QS system process) Respirations: 14 (Mesha Parham, RN) Instructional Method: Verbal; Patient Instructed; Family/Support Person Instructed; Verbalized Understanding (Mesha Parham RN) Plan of Care: Plan of Care Discussed; Vaginal Delivery; Labor; Induction; Gestational Hypertension/Preeclampsia/Eclampsia (Mesha Parham, RN) Unit Routine: [place] to Room; Call Cron[place]; Bed; Visiting Policy; Waiting Areas; Security; Phone/Cell Phone Use; Photography; Unit Personnel; Handwashing; Flu/Illness Precautions; Monitoring; IV Pumps; Safety/Fall Risk Prevention; Diet/Nutrition Services; Bathroom Privileges; Routine Time Outs; Medications (Mesha Parham, RN) Labor/Induction: Labor Stages; Augmentation; Induction; Artificial Rupture of Membranes; Interventions; Activity; Pushing Methods (Mesha Parham, RN) Pain Management: Epidural; PRN Medications; Pain Scale/Goals; Comfort Measures (Mesha Parham, RN) Medications: Pitocin (Mesha Parham, RN) PTL/PROM: Expected Outcomes (Mesha Parham, RN) Related: Common Discomforts of ; Maternal Physical Changes; Maternal Emotional Changes; Nutrition; Hydration; Activity and Rest (Mesha Parham, RN) LaborFlag: Labor (QS system process) Datetime: 10/11/2016 08:35 Stage of : Labor (Mesha Parham RN) Pain Scale: 2 (Mesha Parham, RN) Pain Presence: Constant (Mesha Parham, DUNG) Pain Type: Dull (Mesha Parham, RN) Pain Location: Head (Mesha Parham, RN) Pain Goal: 1 (Mesha Parham RN) Pain Relief Measures: Comfort Measures (Annotations: requesting tylenol) (Mesha Parham, RN) LaborFlag: Labor (QS system process) Datetime: 10/11/2016 08:30 Monitor Mode: External (Mesha Parham, RN) Frequency (min): 4-4.5 (Mesha Parham, RN) Quality: Moderate (Mesha Chauard, RN) Duration (sec): 60-80 (Mesha Parham, RN) Duration Criteria: Less than Two 120 Second Contractions (Mesha Parham, RN) Pattern: Normal: <= 5 Contractions in 10 Minutes (Mesha Parham, RN) Resting Tone (Palpate): Relaxed (Mesha Chauard, RN) Monitor Mode: Internal Scalp Electrode (Mesha Parham, RN) FHR Baseline Rate : 145 (Mesha Parham, RN) FHR Baseline Changes: No Baseline Change (Mesha Parham, RN) Variability: Moderate 6-25 bpm (Mesha Lafayette, RN) Accelerations: 15X15 (Mesha Lafayette, RN) Decelerations: None (Mesha Parham, RN) Datetime: 10/11/2016 08:23 Stage of : Labor (Mesha Parham RN) NBP Sys/Raya/Mean (mmHg): 120 (QS system process) : 75 (QS system process) : 91 (QS system process) Pulse: 92 (QS system process) Respirations: 16 (Mesha Parham RN) Temperature (F): 98.1 (Mesha Parham RN) Temperature (C): 36.7 (QS system process) Temperature Route: Oral (Mesha Parham RN) Pain Scale: 1 (Mesha Parham RN) Pain Presence: Intermittent (Mesha Parham RN) Pain Type: Pressure (Mesha Parham RN) Pain Location: Abdomen; Back (Mesha Parham RN) Pain Goal: 1 (Mesha Parham RN) Pain Relief Measures: Comfort Measures (Mesha Parham RN) LaborFlag: Labor (QS system process) Datetime: 10/11/2016 08:17 Patient Position/Activity: High Fowlers; Tailors (Dayne Garsia RN) Datetime: 10/11/2016 08:15 Monitor Interventions for FHR: FSE Applied (Dayne Garsia RN) Datetime: 10/11/2016 08:14 Dilatation (cm): 8.0 (Mesha Parham RN) Effacement (%): 100 (Mesha Parham RN) Station: -2 (Mesha Parham RN) Exam by: Dr. Mcgee (Mesha Parham RN) Membrane Status: Ruptured (Dayne Garsia RN) Membranes Rupture Method: Artificial (Dayne Garsia RN) Amniotic Fluid Amount: Scant (Dayne Garsia RN) Amniotic Fluid Odor: Normal (Dayne Garsia RN) Membrane Comments: Dr. Mcgee at bedside artifically breaking water (Dayne Garsia RN) Datetime: 10/11/2016 08:10 Communication: Provider at Bedside (Dayne Garsia RN) Provider Notified (Name): Dr. Mcgee at bedside assessing patient and fetus status (Dayne Garsia RN) Datetime: 10/11/2016 08:09 Patient Position/Activity: Hands-Knees (Dayne Garsia, DUNG) Datetime: 10/11/2016 08:07 Patient Position/Activity: Hands-Knees (Dayne Garsia, DUNG) Datetime: 10/11/2016 08:02 Dilatation (cm): 9.0 (Dayne Garsia RN) Effacement (%): 100 (Dayne Garsia RN) Station: -3 (Dayne Garsia RN) Exam by: Kaycee Lira (Dayne Garsia RN) Vaginal Bleeding: Normal Show (Dayne Garsia RN) Cervix, Consistency: Soft (Dayne Garsia RN) Cervix, Position: Midposition (Dayne Garsia RN) Lie 'A': Longitudinal (Dayne Garsia RN) Provider Reviewed Strip: Yes (Dayne Garsia RN) Strip Reviewed by: Kaycee Lira CNM (Dayne Garsia, RN) Communication: RN at Bedside; RN Reviewed Strip; Provider at Bedside (Dayne Garsia RN) Provider Notified (Name): Kaycee Lira CNM (Dayne Garsia RN) Datetime: 10/11/2016 08:00 Monitor Mode: External (Mesha Parham RN) Frequency (min): 2-5 (Mesha Parham RN) Quality: Moderate (Mesha Parham RN) Duration (sec): 60-110 (Mesha Parham RN) Duration Criteria: Less than Two 120 Second Contractions (Mesha Parham RN) Pattern: Normal: <= 5 Contractions in 10 Minutes (Mesha Parham RN) Resting Tone (Palpate): Relaxed (Mesha Parham RN) Monitor Mode: External US (Mesha Parham RN) FHR Baseline Rate : 140 (Mesha Parham RN) FHR Baseline Changes: No Baseline Change (Mesha Parham RN) Variability: Moderate 6-25 bpm (Mesha Parham RN) Accelerations: 15X15 (Mesha Parham RN) Decelerations: Late (Mesha aPrham RN) Actions for Decelerations: Side to Side; IV Bolus (Mesha Parham RN) Anesthesia Plans: Epidural (Mesha Parham RN) Anesthesia Level Check: T9 (Mesha Parham RN) Datetime: 10/11/2016 07:39 NBP Sys/Raya/Mean (mmHg): 116 (QS system process) : 63 (QS system process) : 83 (QS system process) Pulse: 103 (QS system process) LaborFlag: Antepartum (QS system process) Datetime: 10/11/2016 07:30 Monitor Mode: External; Palpation (Mesha Parham RN) Frequency (min): 2-5.5 (Mesha Parham RN) Quality: Moderate (Mesha Parham RN) Duration (sec): 60-100 (Mesha Parham, RN) Duration Criteria: Less than Two 120 Second Contractions (Mesha Parham, DUNG) Pattern: Normal: <= 5 Contractions in 10 Minutes (Mesha Parham, DUNG) Resting Tone (Palpate): Relaxed (Mesha Parham RN) Monitor Mode: External US (Mesha Parham, DUNG) FHR Baseline Rate : 145 (Mesha Parham RN) FHR Baseline Changes: No Baseline Change (Mesha Parham, DUNG) Variability: Moderate 6-25 bpm (Mesha Parham, RN) Accelerations: 15X15 (Mesha Lafayette, RN) Decelerations: Late (Mesha [place], RN) Actions for Decelerations: Side to Side (Mesha [place], RN) Datetime: 10/11/2016 07:15 Level of Consciousness: Fully Conscious (Mesha [place], RN) DTR's/Clonus: DTRs 2+; No Clonus (Mesha Dione, RN) Headache: Generalized (Mesha Lafayette, RN) Breath Sounds, Left: Clear and Equal (Mesha Lafayette, RN) Breath Sounds, Right: Clear and Equal (Mesha Lafayette, RN) Nausea/Vomiting: Denies (Mesha Lafayette, RN) RUQ Epigastric Pain: Denies (Mesha Lafayette, RN) Datetime: 10/11/2016 07:09 NBP Sys/Raya/Mean (mmHg): 111 (QS system process) : 60 (QS system process) : 79 (QS system process) Pulse: 110 (QS system process) LaborFlag: Antepartum (QS system process)
[2016-10-11] MEDS: FAMOTIDINE 20 MG TABLET PO SCH (21:10)
[2016-10-11] MEDS: DIPHENHYDRAMINE HCL 25 MG CAPSULE PO PRN (22:52)
[2016-10-12] MEDS: ACETAMINOPHEN WITH CODEINE #3 TABLET PO PRN ×2 (04:23→11:58)
[2016-10-12] MEDS: IBUPROFEN 800 MG TABLET PO SCH ×3 (05:57→22:16)
--- NOTE | 2016-10-12 06:00 | L&D Current Admission ---
Current Admit Datetime Report Generated by CPN: 10/12/2016 06:00 ADMISSION INFORMATION Current Admit Date/Time: 10/10/2016 15:51 (09/28/2016 00:35:Charo Murphy RN) Reason for Admission: Induction of Labor (09/28/2016 00:35:Charo Murphy RN) Chief Complaint: Scheduled Induction of Labor (09/28/2016 00:35:Charo Murphy RN) Medications During : Vitamin (09/28/2016 00:35:Charo Murphy RN) EGA per Dates: 40.4 (09/28/2016 00:35:QS system process) Method of Arrival: Ambulatory (09/28/2016 00:35:Charo Murphy RN) Admitted From: [facility] (09/28/2016 00:35:Charo Murphy RN) Reason for Induction: Gestational Hypertension (09/28/2016 00:35:Charo Murphy RN) Records Available: Yes (09/28/2016 00:35:Charo Murphy RN) BELONGINGS/ADVANCED DIRECTIVES Other Belongings: see signed belongings consent (09/28/2016 00:35:Charo Murphy RN) Disposition of Belongings: Kept with Patient (09/28/2016 00:35:Charo Murphy RN) Advance Direct for Healthcare: No, and Wants No Information (09/28/2016 00:35:Charo Murphy RN) Durable Power of Personal Lines Agent: No (09/28/2016 00:35:Charo Murphy RN) Living Will: No (09/28/2016 00:35:Charo Murphy RN) Organ Donor: No (09/28/2016 00:35:Charo Murphy RN) Pt Rights Information Given: Yes (09/28/2016 00:35:Charo Murphy RN) Pt Understands Pt Rights: Yes (09/28/2016 00:35:Charo Murphy RN) LEARNING ASSESSMENT Knowledge Level: Understands L_D Process; Understands Care Activities; Had Pre-Hospital Education; Understands Diagnosis (09/28/2016 00:35:Charo Murphy RN) Barriers to Learning: None (09/28/2016 00:35:Charo Murphy RN) Learning Readiness: Motivated (09/28/2016 00:35:Charo Murphy RN) Learns Best By: 1 to 1 Instruction (09/28/2016 00:35:Charo Murphy RN) Learning Needs: Labor and Delivery Process; Pain Management; Symptoms to Report; Treatment Plan; Medication; Diagnosis; Nutrition; Equipment; Care; Community Resources (09/28/2016 00:35:Charo Murphy RN) DOMESTIC VIOLANCE SCREENING Dom Viol Threatened/Hurt: No (09/28/2016 00:35:Charo Murphy RN) Hx of Abuse/Neglect past 2yrs: No (09/28/2016 00:35:Charo Murphy RN) Feel Unsafe Going Home: No (09/28/2016 00:35:Charo Murphy RN) Addt'l Observ Indicating Abuse: No (09/28/2016 00:35:Charo Murphy RN) Reason Unable to Complete Screen: N/A, Screen Completed (09/28/2016 00:35:Charo Murphy RN) Considered Personal Harm/Suicide: No (09/28/2016 00:35:Charo Murphy RN) NUTRITIONAL/FUNCTIONAL SCREENING Problem with Appetite >5 Days: No (09/28/2016 00:35:Charo Murphy RN) Chew/Swallow Difficulties: No (09/28/2016 00:35:Charo Murphy RN) Inappropriate Wt Gain/Loss: No (09/28/2016 00:35:Charo Murphy RN) Presence Skin Breakdown/Ulcer: No (09/28/2016 00:35:Charo Murphy RN) Special Diet: No (09/28/2016 00:35:Charo Murphy RN) Pt Requests Auto Body Detailer Visit: No (09/28/2016 00:35:Charo Murphy RN) Hx of Any of the Following?: N/A (09/28/2016 00:35:Charo Murphy RN) New Diagnosis of: N/A (09/28/2016 00:35:Charo Murphy RN) Requires Assist w/Ambulation: No (09/28/2016 00:35:Charo Murphy RN) Uses Assist Device to Ambulate: No (09/28/2016 00:35:Chrao Murphy RN) Pt Requires Help w/ADL's: No (09/28/2016 00:35:Charo Murphy RN)
--- NOTE | 2016-10-12 06:01 | L&D General Admission ---
General Admit Datetime Report Generated by CPN: 10/12/2016 06:00 INFORMATION Patient Age: 25 (05/02/2013 21:10:QS system process) EDC: 10/06/2016 00:00 (05/20/2016 01:51:Mesha Parham RN) : 4 (05/20/2016 01:51:Sandra Arora RN) Para: 2 (08/20/2016 16:00:NONA Abreu) Term: 2 (05/20/2016 01:51:Sandra Arora RN) : 0 (05/20/2016 01:51:Sandra Arora RN) Spontaneous Abortions: 0 (05/20/2016 01:51:Sandra Arora RN) Induced Abortions: 1 (05/20/2016 01:51:Sandra Arora RN) Livin (05/20/2016 01:51:Sandra Arora RN) Cesareans: 0 (05/20/2016 01:51:Sandra Arora RN) VBACs: 0 (05/20/2016 01:51:Sandra Arora RN) Ectopic: 0 (05/20/2016 01:51:Sandra Arora RN) Multiple Births: 0 (05/20/2016 01:51:Sandra Arora RN) Baby, Number in Womb: 1 (08/20/2016 16:00:NONA Abreu) CARE Primary Lawn And Tree Service Spray Supervisor[facility] (05/20/2016 01:51:Charo Murphy RN) Month of 1st Visit: 25 weeks 6 days (05/20/2016 01:51:Promise Canada RN) Adequate Care: No (05/20/2016 01:51:Sandra Arora RN) Height (in): 62 (10/11/2016 16:36:QS system process) ALLERGIES Medication Allergy: Yes (05/20/2016 01:51:Charo Murphy RN) Medication Allergies: iodine (10/11/2016) (10/11/2016 08:55:QS system process) Latex Allergy: No Latex Allergies (05/20/2016 01:51:Sandra Arora RN) Food Allergies: None (05/20/2016 01:51:Sandra Arora RN) Environmental Allergies: None (05/20/2016 01:51:Sandra Arora RN) COMMUNICATION Primary Language: Uzbek (05/20/2016 01:51:Sandra Arora RN) Medical Tx Preferred Language: Uzbek (05/20/2016 01:51:Sandra Arora RN) Communication Barrier(s): None (05/20/2016 01:51:Silvina Riddle RN) DEMOGRAPHICS Address: , [facility] [place] [address] (08/20/2016 12:51:QS system process) Zipcode: [address] (08/20/2016 12:51:QS system process) Home (08/20/2016 12:51:QS system process) N: [id number] (05/02/2015 21:10:QS system process) Next of Kin Name: ORMA MINOR (08/20/2016 12:51:QS system process) Next of Kin (08/20/2016 12:51:QS system process) Next of Kin Relationship: MO (08/20/2016 12:51:QS system process) Date of : 1990 (05/02/2015 21:10:QS system process) Marital Status: (05/15/2015 10:34:QS system process) Sex: Female (05/02/2015 21:10:QS system process) Race: Other (05/15/2015 10:34:QS system process) Ethnicity: Non- or (05/02/2015 21:10:QS system process) Adventist: None (08/20/2016 12:51:QS system process) DRUG AND ALCOHOL USE Alcohol: No (05/20/2016 01:51:Sandra Arora RN) Cigarettes: Current Everyday Smoker. [id number] (05/20/2016 01:51:Sandra Arora RN) Average Cigarettes Smoked: < 5 per day (05/20/2016 01:51:Mesha Parham RN) Cigarette Comments: "not as much as I used to" (05/20/2016 01:51:Sandra Arora RN) Marijuana: No (05/20/2016 01:51:Mesha Parham RN) Cocaine: No (05/20/2016 01:51:Mesha Parham RN) Other Illicit Drugs: No (05/20/2016 01:51:Mesha Parham RN) Other Illicit Drug Comments: patient claims that she "probably" took drugs during her . When asked which drugs patients claimed "I don't know" (05/20/2016 01:51:Sandra Arora RN) VACCINE HISTORY Influenza Vaccine: Yes (05/20/2016 01:51:Mesha Parham RN) Pneumococcal Vaccine: No (05/20/2016 01:51:Mesha Parham RN) Tetanus Vaccine: Yes (05/20/2016 01:51:Mseha Parham RN) Tdap Vaccine: Yes (05/20/2016 01:51:Mesha Parham RN) Hepatitis B Vaccine: Yes (05/20/2016 01:51:Mesha Parham RN) Advanced Manufacturing Vice President: [facility] (05/20/2016 01:51:Jordyn Medina RN) Feeding Preference: Formula (05/20/2016 01:51:Jordyn Medina RN) Benefit of Breast Feed Discussed: Yes (05/20/2016 01:51:Jordyn Medina RN) Circumcision: Yes (05/20/2016 01:51:Jordyn Medina RN) Classes Attended: No (05/20/2016 01:51:Jordyn Medina RN) Tubal Ligation: No (05/20/2016 01:51:Jordyn Medina RN) Tubal Authorization Signed: N/A (05/20/2016 01:51:Jordyn Medina RN) Consent: N/A (05/20/2016 01:51:Jordyn Medina RN) Consent Signed: N/A (05/20/2016 01:51:Jordyn Medina RN) Pain Management Plans: Epidural (05/20/2016 01:51:Jordyn Medina RN) Plans for Labor and Delivery: None (05/20/2016 01:51:Jordyn Medina RN) Support Person: Ike (05/20/2016 01:51:Jordyn Medina RN) Support Person Relationship: Significant Other (05/20/2016 01:51:Jordyn Medina RN) Cultural/Spritual Practice: No (05/20/2016 01:51:Jordyn Medina RN) Spir/Cult Dietary Needs: No (05/20/2016 01:51:Jordyn Medina RN) LIVING SITUATION/DISCHARGE PLAN Living Arrangements: getting apartment but currently in a hotel (05/20/2016 01:51:Jordyn Medina RN) Adequate Access to:: Electric; Heat; Refrigeration; Plumbing/Running water; Phone; Transportation (05/20/2016 01:51:Jordyn Medina RN) WIC Program: Needs referral (05/20/2016 01:51:Jordyn Medina RN) Discharge Metal Precision Machine Assembler Person: Ike (05/20/2016 01:51:Jordyn Medina RN) Person to Help after Discharge: Ike (05/20/2016 01:51:Jordyn Medina RN) Currently Using Commun Resources: Yes (05/20/2016 01:51:Jordyn Medina RN) Specify Current Resource Used: medicaid, food stamps (05/20/2016 01:51:Jordyn Medina RN) Outside Agency/Brick Tender: Yes (05/20/2016 01:51:Jordyn Medina RN) Specify Agency/ Brick Tender: [facility]- social work professor for other children (05/20/2016 01:51:Jordyn Medina RN) Car Seat for Discharge: Yes (05/20/2016 01:51:Jordyn Medina RN) Adoption Requested: No (05/20/2016 01:51:Jordyn Medina RN) Pt Contact w/ Post : N/A (05/20/2016 01:51:Jordyn Medina RN) LABS Blood Type: O Positive (05/20/2016 01:51:Promise Canada RN) Antibody Screen: neg (05/20/2016 01:51:Charo Murphy RN) Hemoglobin: 11.5 L (10/10/2016 16:16:QS system process) Hematocrit: 34.0 L (10/10/2016 16:16:QS system process) MCV: 93 (10/10/2016 16:16:QS system process) Group Beta Strep: negative (05/20/2016 01:51:Promise Canada RN) Gonorrhea: Negative (05/20/2016 01:51:Promise Canada RN) Chlamydia: Negative (05/20/2016 01:51:Promise Canada RN) RPR/VDRL: Nonreactive (05/20/2016 01:51:Promise Canada RN) HIV Exposure Test: Negative (05/20/2016 01:51:Promise Canada RN) Hepatitis B: Negative (05/20/2016 01:51:Promise Canada RN) Rubella: Immune (05/20/2016 01:51:Promise Canada RN) OB/PREVIOUS HISTORY Previous Procedures: Ultrasound; NST (05/20/2016 01:51:Jordyn Medina RN) Current Procedures: Ultrasound; NST (05/20/2016 01:51:Jordyn Medina RN) History of Previous : No (05/20/2016 01:51:Jordyn Medina RN) History of Gestational Diabetes: No (05/20/2016 01:51:Jordyn Medina RN) History of PIH: No (05/20/2016 01:51:Jordyn Medina RN) History of Incompetent Cervix: No (05/20/2016 01:51:Jordyn Medina RN) History of Placenta Previa/Abrup: No (05/20/2016 01:51:Jordyn Medina RN) History of Macrosomia: No (05/20/2016 01:51:Jordyn Medina RN) History of IUGR: No (05/20/2016 01:51:Jordyn Medina RN) History of Hemorrhage: No (05/20/2016 01:51:Jordyn Medina RN) History of Loss/Stillborn: No (05/20/2016 01:51:Jordyn Medina RN) History of : No (05/20/2016 01:51:Jordyn Medina RN) History of D (Rh) Sensitization: No (05/20/2016 01:51:Jordyn Medina RN) History Recurrent Loss/Stillborn: No (05/20/2016 01:51:Jordyn Medina RN) History Depression/PP Depression: No (05/20/2016 01:51:Jordyn Medina RN) History of Uterine Anomaly/TRI: No (05/20/2016 01:51:Jordyn Medina RN) History of Infertility: No (05/20/2016 01:51:Jordyn Medina RN) History of ART Treatment: No (05/20/2016 01:51:Jordyn Medina RN) History of TRI: No (05/20/2016 01:51:Jordyn Medina RN) Comments Obstetrical History: G1- eab 7 weeks G2- 12.19.2007-39 weeks baby girl 6 lbs 12 oz G3- 1.31.2012- 39 weeks babygirl 7 lbs 14oz G4- current (05/20/2016 01:51:Promise Canada RN) MEDICAL HISTORY Med Hx Diabetes: No (05/20/2016 01:51:Jordyn Medina RN) Med Hx Hypertension: No (05/20/2016 01:51:Jordyn Medina RN) Med Hx Heart Disease: No (05/20/2016 01:51:oJrdyn Medina RN) Med Hx Autoimmune Disorder: No (05/20/2016 01:51:Jordyn Medina RN) Med Hx Kidney Disease/UTI: Yes (05/20/2016 01:51:Jordyn Medina RN) Med Hx Neurologic/Epilepsy: No (05/20/2016 01:51:Jordyn Medina RN) Med Hx Psychiatric Disorders: No (05/20/2016 01:51:Jordyn Medina RN) Med Hx Hepatitis/Liver Disease: No (05/20/2016 01:51:Jordyn Medina RN) Med Hx Varicosities/Phlebitis: No (05/20/2016 01:51:Jordyn Medina RN) Med Hx Thyroid Dysfunction: No (05/20/2016 01:51:Jordyn Medina RN) Med Hx Trauma/Violence: No (05/20/2016 01:51:Jordyn Medina RN) Med Hx Blood Transfusion: No (05/20/2016 01:51:Jordyn Medina RN) Med Hx Pulmonary (Asthma,TB): Yes (05/20/2016 01:51:Jordyn Medina RN) Med Hx Breast: No (05/20/2016 01:51:Jordyn Medina RN) Med Hx DIRECTOR OF PLANT OPERATIONS Surgery: No (05/20/2016 01:51:Jordyn Medina RN) Med Hx Hospitalization/Surgery: Yes (05/20/2016 01:51:Jordyn Medina RN) Med Hx Anesthetic Complications: No (05/20/2016 01:51:Jordyn Medina RN) Med Hx Abnormal Pap Smear: No (05/20/2016 01:51:Jordyn Medina RN) Other Medical Diseases: No (05/20/2016 01:51:Jordyn Medina RN) Med Hx Significant Family Hx: No (05/20/2016 01:51:Jordyn Medina RN) Details of Med/Surg Hx: takes percocets- low back pain, neck, and shoulders gets from friends, street, [place] diagnosed on sep 26, 2016 treated with keflex, appendix removed, nose reconstruction, states she has anxiety sometimes but has never been diagnosed and did not want it mentioned, asthma has advair inhaler(states she never had it filled), childbirth x 2, possible learning disorder? (05/20/2016 01:51:Jordyn Medina RN) INFECTIOUS HISTORY Inf Hx Gonorrhea: No (05/20/2016 01:51:Jordyn Medina RN) Inf Hx Chlamydia: Yes (05/20/2016 01:51:Promise Canada RN) Inf Hx Syphilis: No (05/20/2016 01:51:Jordyn Medina RN) Inf Hx HIV/AIDS: No (05/20/2016 01:51:Jordyn Medina RN) Inf Hx Human Papilloma Virus: No (05/20/2016 01:51:Jordyn Medina RN) Inf Hx Pt/Partner Genital Herpes: No (05/20/2016 01:51:Jordyn Medina RN) Inf Hx Tuberculosis/Exposure: No (05/20/2016 01:51:Jordyn Medina RN) Inf Hx Hepatitis B,C: No (05/20/2016 01:51:Jordyn Medina RN) Inf Hx Rash or Viral Illness: No (05/20/2016 01:51:Jordyn Medina RN) Details of Infectious Hx: fob may have hep C, pt unsure 06.27.2016 +chlam, treated 07.30.2016 (05/20/2016 01:51:Promise Canada RN) GENETIC HISTORY Gen Hx Age >=35 at NABIL: Yes (05/20/2016 01:51:Jordyn Medina RN) Gen Hx Thalassemia: No (05/20/2016 01:51:Jordyn Medina RN) Gen Hx Congenital Heart Defect: No (05/20/2016 01:51:Jordyn Medina RN) Gen Hx Neural Tube Defect: No (05/20/2016 01:51:Jordyn Medina RN) Gen Hx Down's Syndrome: No (05/20/2016 01:51:Jordyn Medina RN) Gen Hx Valdez-Sachs: No (05/20/2016 01:51:Jordyn Medina RN) Gen Hx Dagoberto: No (05/20/2016 01:51:Jordyn Medina RN) Gen Hx Familial Dysautonomia: No (05/20/2016 01:51:Jordyn Medina RN) Gen Hx Sickle Cell Disease/Trait: No (05/20/2016 01:51:Jordyn Medina RN) Gen Hx Hemophilia/Blood Disorder: No (05/20/2016 01:51:Jordyn Medina RN) Gen Hx Muscular Dystrophy: No (05/20/2016 01:51:Jordyn Medina RN) Gen Hx Cystic Fibrosis: No (05/20/2016 01:51:Jordyn Medina RN) Gen Hx Huntingtons Chorea: No (05/20/2016 01:51:Jordyn Medina RN) Gen Hx Mental Retardation/Autism: No (05/20/2016 01:51:Jordyn Medina RN) Gen Hx Tested for Fragile X: No (05/20/2016 01:51:Jordyn Medina RN) Gen Hx Other Inher/Chromosomal: No (05/20/2016 01:51:Jordyn Medina RN) Gen Hx Maternal Metabolic DO: No (05/20/2016 01:51:Jordyn Medina RN) Gen Hx Pt Father or FOB Defect: No (05/20/2016 01:51:Jordyn Medina RN) Gen Hx Other Genetic History: No (05/20/2016 01:51:Jordyn Medina RN) Gen Hx Drugs/Meds since LMP: Yes (05/20/2016 01:51:Jordyn Medina RN) Gen Hx Medications: Keflex, vitamins, tylenol, Percocet (mentioned in chart that patient was using Percocet obtained from the street or friends) (05/20/2016 01:51:Jordyn Medina RN) Details of Genetic History: dad is 47 (05/20/2016 01:51:Jordyn Medina RN)
--- NOTE | 2016-10-12 06:16 | L&D Care Plan ---
LD CARE PLANS Datetime Report Generated by CPN: 10/12/2016 06:15 Datetime: 10/10/2016 15:35 Pain State: Risk For (Charo Murphy RN) Related To: Labor and Delivery Process (Charo Murphy RN) Goal(s): Patients Pain will be Assessed and Managed; Patient will Verbalize Adequate Relief of Pain or the Ability to Whitt with Current Pain (Charo Murphy RN) Interventions: Assess Pain Severity on Scale of 0 (None) to 5 (Severe); Assess Type, Location and Intensity of Pain Each Time Client Reports Discomfort and Notify Provider if Unusal Pain Develops; Encourage Proper Breathing and Relaxation Techniques (Charo Murphy RN) Outcome: Patient will Report Absence or Relief of Pain Consistent with Established Pain Goal (Charo Murphy RN) Status: Ongoing (Charo Murphy RN) Outcome: Patient will have a Decrease in Signs and Symptoms of Discomfort (Charo Murphy RN) Status: Ongoing (Charo Murphy RN) Anxiety State: Not Applicable (Charo Murphy RN) Knowledge Deficit State: Risk For (Charo Murphy RN) Related To: Labor and Delivery Process; Treatment and Procedures; Impending Alterations in Family Dynamics; Feeding and Infant Care; Community Resources and Available Support Mechanisms (Charo Murphy RN) Goal(s): Patient will Accurately Verbalize Understanding of Plan of Care and Treatment; Patient and Family will Accurately Verbalize Understanding of the Disease Process (Charo Murphy RN) Interventions: Assess Motivation and Willingness of Patient/Family to Learn; Assess Preferred Learning Mode: One to One Instruction, Reading, Videos, Group Discussion or Demonstration; Assess Barriers to Learning: Pain, Emotional State, Language Barrier, Cognitive Impairment, Visual or Hearing Deficits; Assess Patient and Family Knowledge of Disease Process, Medications and Treatment; Discuss Therapy and/or Treatment Options, Describe Rationale Behind Management, Therapy and Treatment Recommendations (Charo Murphy RN) Outcome: Patient and Family will Verbalize Understanding of Condition, Treatment and Signs and Symptoms to Report (Charo Murphy RN) Status: Ongoing (Charo Murphy RN) Outcome: Patient will Identify Perceived Learning Needs and Express Motivation to Learn (Charo Murphy RN) Status: Ongoing (hCaro Murphy RN) Infection State: Risk For (Charo Murphy RN) Related To: Premature/Prolonged Rupture of Membranes; Altered Tissue Integrity (Charo Murphy RN) Goal(s): The Patient will be Free of Infection, Vital Signs Stable and Lab Work within Normal Parameters (Charo Murphy RN) Interventions: Instruct and Reinforce Proper Handwashing, Hygiene, and Care Techniques to Patient and Family; Monitor Vital Signs; Monitor Patient for the Following Signs of Infection: Fever, Abdominal Tenderness, Unusual Discharge; Monitor Aminiotic Fluid, Urine and Lochia for Color and Odor (Charo Murphy, DUNG) Outcome: Patient will Remain Free of Infection (Charo Murphy RN) Status: Ongoing (Charo Murphy RN) Outcome: Infection will be Recognized Early to Allow for Prompt Treatment (Charo Murphy RN) Status: Ongoing (Charo Murphy RN) Fluid Volume State: Not Applicable (Charo Katherine, RN) Injury State: Not Applicable (Charo Nugentmes, RN) Impaired Skin Integrity State: Risk For (Charo Murphy RN) Related To: Vaginal Delivery (Charo Murphy RN) Goal(s): Patient will Maintain Optimal Skin Integrity, Free of Breakdown, Injury or Infection (Charo Murphy RN) Interventions: Complete Screening for Pressure Ulcer Risk and Initiate Protocol per Hospital Policy; Monitor Site of Skin Impairment for Color Changes, Redness, Swelling, Warmth, Pain or Other Signs of Infection; Encourage and Assist with Position Changes (Charo Murphy RN) Outcome: Patient will not have Evidence of Injury Such as Skin Breakdown, Scrapes, Cuts, or Bruising (Charo Murphy RN) Status: Ongoing (Charo Murphy RN) Outcome: Patient will Report Any Altered Sensation or Pain at Site of Skin Impairment (Charo Murphy RN) Status: Ongoing (Charo Murphy RN) Parenting Impaired State: Actual (Charo Murphy RN) Other Diagnosis or r/t: drug use (Charo Murphy RN) Goal(s): Parents will Demonstrate Progressive Parenting Behaviors (Charo Murphy RN) Interventions: Assess for Adequacy of Support Systems; Observe and Encourage Patient/Family Infant Attachment and Bonding Activities and Provide Feedback; Assess Patient/Family Understanding of 's Condition and Provide Accurate Information About Condition, Treatment and Prognosis; Assess for Patient/Family Behaviors that May Indicate Lack of Attachment (Charo Murphy RN) Outcome: Patient/Family will Discuss Their Fears and the Possibility of Difficulties with Parenting (Charo Murphy RN) Status: Ongoing (Charo Murphy RN) Outcome: Patient/Family will Exhibit Appropriate Bonding Behaviors with (Charo Murphy RN) Status: Ongoing (Charo Murphy RN) Nutrition State: Not Applicable (Charo Murphy RN) Grieving State: Not Applicable (Charo Murphy, RN) Datetime: 10/10/2016 15:34 Pain State: Risk For (Charo Murphy RN) Related To: Labor and Delivery Process (Charo Murphy RN) Goal(s): Patients Pain will be Assessed and Managed; Patient will Verbalize Adequate Relief of Pain or the Ability to Whitt with Current Pain (Charo Murphy RN) Interventions: Assess Pain Severity on Scale of 0 (None) to 5 (Severe); Assess Type, Location and Intensity of Pain Each Time Client Reports Discomfort and Notify Provider if Unusal Pain Develops; Encourage Proper Breathing and Relaxation Techniques (Charo Murphy RN) Outcome: Patient will Report Absence or Relief of Pain Consistent with Established Pain Goal (Charo Murphy RN) Status: Ongoing (Charo Murphy RN) Outcome: Patient will have a Decrease in Signs and Symptoms of Discomfort (Charo Murphy RN) Status: Ongoing (Charo Murphy RN) Anxiety State: Not Applicable (Charo Murphy RN) Knowledge Deficit State: Risk For (Charo Murphy RN) Related To: Labor and Delivery Process; Treatment and Procedures; Impending Alterations in Family Dynamics; Feeding and Infant Care; Community Resources and Available Support Mechanisms (Charo Murphy RN) Goal(s): Patient will Accurately Verbalize Understanding of Plan of Care and Treatment; Patient and Family will Accurately Verbalize Understanding of the Disease Process (Charo Murphy RN) Interventions: Assess Motivation and Willingness of Patient/Family to Learn; Assess Preferred Learning Mode: One to One Instruction, Reading, Videos, Group Discussion or Demonstration; Assess Barriers to Learning: Pain, Emotional State, Language Barrier, Cognitive Impairment, Visual or Hearing Deficits; Assess Patient and Family Knowledge of Disease Process, Medications and Treatment; Discuss Therapy and/or Treatment Options, Describe Rationale Behind Management, Therapy and Treatment Recommendations (Charo Murphy RN) Outcome: Patient and Family will Verbalize Understanding of Condition, Treatment and Signs and Symptoms to Report (Charo Murphy RN) Status: Ongoing (Charo Murpyh RN) Outcome: Patient will Identify Perceived Learning Needs and Express Motivation to Learn (Charo Murphy RN) Status: Ongoing (Charo Murphy RN) Infection State: Risk For (Charo Murphy RN) Related To: Premature/Prolonged Rupture of Membranes; Altered Tissue Integrity (Charo Murphy RN) Goal(s): The Patient will be Free of Infection, Vital Signs Stable and Lab Work within Normal Parameters (Charo Murphy RN) Interventions: Instruct and Reinforce Proper Handwashing, Hygiene, and Care Techniques to Patient and Family; Monitor Vital Signs; Monitor Patient for the Following Signs of Infection: Fever, Abdominal Tenderness, Unusual Discharge; Monitor Aminiotic Fluid, Urine and Lochia for Color and Odor (Charo Murphy, DUNG) Outcome: Patient will Remain Free of Infection (Charo Murphy RN) Status: Ongoing (Charo Murphy RN) Outcome: Infection will be Recognized Early to Allow for Prompt Treatment (Charo Murphy RN) Status: Ongoing (Charo Murphy RN) Fluid Volume State: Not Applicable (Charo Katherine, RN) Injury State: Not Applicable (Charo Murphy, RN) Impaired Skin Integrity State: Risk For (Charo Murphy RN) Related To: Vaginal Delivery (Charo Murphy RN) Goal(s): Patient will Maintain Optimal Skin Integrity, Free of Breakdown, Injury or Infection (Charo Murphy RN) Interventions: Complete Screening for Pressure Ulcer Risk and Initiate Protocol per Hospital Policy; Monitor Site of Skin Impairment for Color Changes, Redness, Swelling, Warmth, Pain or Other Signs of Infection; Encourage and Assist with Position Changes (Charo Murphy RN) Outcome: Patient will not have Evidence of Injury Such as Skin Breakdown, Scrapes, Cuts, or Bruising (Charo Murphy RN) Status: Ongoing (Charo Murphy RN) Outcome: Patient will Report Any Altered Sensation or Pain at Site of Skin Impairment (Charo Murphy RN) Status: Ongoing (Charo Murphy RN) Parenting Impaired State: Actual (Charo Murphy RN) Other Diagnosis or r/t: drug use (Charo Murphy RN) Goal(s): Parents will Demonstrate Progressive Parenting Behaviors (Charo Murphy RN) Interventions: Assess for Adequacy of Support Systems; Observe and Encourage Patient/Family Infant Attachment and Bonding Activities and Provide Feedback; Assess Patient/Family Understanding of 's Condition and Provide Accurate Information About Condition, Treatment and Prognosis; Assess for Patient/Family Behaviors that May Indicate Lack of Attachment (Charo Murphy RN) Outcome: Patient/Family will Discuss Their Fears and the Possibility of Difficulties with Parenting (Charo Murphy RN) Status: Ongoing (Charo Murphy RN) Outcome: Patient/Family will Exhibit Appropriate Bonding Behaviors with (Charo Murphy RN) Status: Ongoing (Charo Murphy RN) Nutrition State: Not Applicable (Charo Murphy RN) Grieving State: Not Applicable (Charo Katehrine, RN)
[2016-10-12 07:40] LABS: HEMATOCRIT 24.9 % (36.0-47.0); HGB HCT DIFFERENCE 0.9; MEAN CORPUSCULAR HEMOGLOBIN 31.8 pg (27.0-33.4); MEAN CORPUSCULAR HGB CONC 34.5 g/dL (32.0-36.0); MEAN CORPUSCULAR VOLUME 92 fl (80-97); RED CELL DISTRIBUTION WIDTH 14.5 % (11.5-14.0)
[2016-10-12 07:48] LABS: HEMOGLOBIN 8.6 g/dL (12.0-15.5)
[2016-10-12] MEDS: SENNOSIDES/DOCUSATE 8.6-50 MG 1 EACH TABLET PO SCH (09:20)
[2016-10-12] MEDS: FAMOTIDINE 20 MG TABLET PO SCH ×2 (09:20→22:17)
[2016-10-12] MEDS: FERROUS SULFATE 325 MG TABLET PO SCH ×2 (09:20→17:08)
[2016-10-12] MEDS: DOCUSATE SODIUM 100 MG CAPSULE PO SCH ×2 (09:20→17:08)
[2016-10-12] MEDS: PRENATAL VITAMIN W-O CA NO5/FE FUMARATE/FA CAPSULE PO SCH (09:20)
--- NOTE | 2016-10-12 09:20 | PDOC PROGRESS REPORT ---
Subjective-OB Subjective: Post Delivery Day: 26 year old. Denies any needs at this time Doing well, sleeping on rounds, tolerating low H&H, diet taken well, voiding, ambulating Physical Exam (OB) Vital Signs: Temp Pulse Resp BP Pulse Ox 97.9 F 83 18 133/89 H 100 10/12/16 08:42 10/12/16 08:42 10/12/16 08:42 10/12/16 08:42 10/12/16 08:42 Intake & Output 10/11/16 10/12/16 10/13/16 06:59 06:59 06:59 Intake Total 400 Balance 400 Weight 83.1 kg - PIH/Pre-Eclampsia DTR's: 2 + Clonus: Negative Headache: Absent Epigastric Pain: No Visual Changes: No - Lochia Lochia Amount: Scant < 10 ml Lochia Color: Rubra/Red - Abdomen Description: Tender, Soft, Round Hernia Present: No Fundal Description: Firm, Midline Fundal Height: u/u - u/2 Objective-Diagnostic Laboratory: 10/12/16 06:49 10/11/16 10/12/16 12:35 06:49 WBC 10.0 RBC 2.70 L Hgb 8.6 L D Hct 24.9 L MCV 92 MCH 31.8 MCHC 34.5 RDW 14.5 H Plt Count 181 Carbonic Acid 1.37 H HCO3/H2CO3 Ratio 14:1 ABG pH 7.25 L ABG pCO2 45.5 H ABG pO2 21.9 L* ABG HCO3 19.5 L ABG O2 Saturation 29.7 L ABG Base Excess -7.7 FiO2 CORD BLOOD Assessment and Plan(PN) - Assessment and Plan (1) Uterine atony, , current hospitalization Is this a current diagnosis for this admission?: Yes (2) Percocet use disorder, mild, abuse Is this a current diagnosis for this admission?: Yes (3) Late care Is this a current diagnosis for this admission?: Yes (4) Anemia Qualifiers: Anemia type: iron deficiency Is this a current diagnosis for this admission?: Yes (5) Chronic hypertension in Is this a current diagnosis for this admission?: Yes (6) Delivery normal Is this a current diagnosis for this admission?: Yes - Time Spent with Patient Time with patient: Less than 15 minutes Smoking Education Provided: Over 3 minutes Medications reviewed and adjusted accordingly: Yes - Disposition Anticipated Discharge: Home Within: within 24 hours
[2016-10-13] MEDS: IBUPROFEN 800 MG TABLET PO SCH ×3 (05:18→21:48)
[2016-10-13] MEDS: ACETAMINOPHEN WITH CODEINE #3 TABLET PO PRN ×4 (07:57→21:48)
[2016-10-13] MEDS: PRENATAL VITAMIN W-O CA NO5/FE FUMARATE/FA CAPSULE PO SCH (09:01)
[2016-10-13] MEDS: FAMOTIDINE 20 MG TABLET PO SCH ×2 (09:01→21:48)
[2016-10-13] MEDS: FERROUS SULFATE 325 MG TABLET PO SCH ×2 (09:01→17:40)
[2016-10-13] MEDS: DOCUSATE SODIUM 100 MG CAPSULE PO SCH ×2 (09:01→17:40)
[2016-10-13] MEDS: SENNOSIDES/DOCUSATE 8.6-50 MG 1 EACH TABLET PO SCH (09:01)
--- NOTE | 2016-10-13 09:27 | PDOC PROGRESS REPORT ---
Subjective-OB Subjective: Post Delivery Day: 26 year old. Denies any needs at this time Pt laying in bed, voiding, eating well, scant lochia, does not know if baby is going Physical Exam (OB) Vital Signs: Temp Pulse Resp BP Pulse Ox 97.8 F 87 18 135/79 H 100 10/13/16 08:03 10/13/16 08:03 10/13/16 08:03 10/13/16 08:03 10/13/16 08:03 Intake & Output 10/12/16 10/13/16 10/14/16 06:59 06:59 06:59 Intake Total 400 480 Balance 400 480 - PIH/Pre-Eclampsia DTR's: 2 + Clonus: Negative Headache: Absent Epigastric Pain: No Visual Changes: No - Lochia Lochia Amount: Scant < 10 ml Lochia Color: Rubra/Red - Abdomen Description: Tender, Soft, Round Hernia Present: No Fundal Description: Firm, Midline Fundal Height: u/u - u/2 Objective-Diagnostic Laboratory: 10/12/16 06:49 Assessment and Plan(PN) - Assessment and Plan (1) Uterine atony, , current hospitalization Is this a current diagnosis for this admission?: Yes (2) Percocet use disorder, mild, abuse Is this a current diagnosis for this admission?: Yes (3) Late care Is this a current diagnosis for this admission?: Yes (4) Anemia Qualifiers: Anemia type: iron deficiency Is this a current diagnosis for this admission?: Yes (5) Chronic hypertension in Is this a current diagnosis for this admission?: Yes (6) Delivery normal Is this a current diagnosis for this admission?: Yes - Time Spent with Patient Smoking Education Provided: Over 3 minutes Medications reviewed and adjusted accordingly: Yes - Disposition Anticipated Discharge: Home Within: within 24 hours - Needs psych evaluation and SW needs to see patient before discharge, avoiding contact with baby, baby spending alot of time in nursery, mentally patient is slow or has mental issues and abuse of percocet
[2016-10-13] MEDS: DIPHENHYDRAMINE HCL 25 MG CAPSULE PO PRN (22:08)
[2016-10-14] MEDS: IBUPROFEN 800 MG TABLET PO SCH ×2 (07:03→13:09)
[2016-10-14] MEDS: DOCUSATE SODIUM 100 MG CAPSULE PO SCH ×2 (09:01→17:23)
[2016-10-14] MEDS: SENNOSIDES/DOCUSATE 8.6-50 MG 1 EACH TABLET PO SCH (09:02)
[2016-10-14] MEDS: PRENATAL VITAMIN W-O CA NO5/FE FUMARATE/FA CAPSULE PO SCH (09:02)
[2016-10-14] MEDS: FERROUS SULFATE 325 MG TABLET PO SCH ×2 (09:02→17:22)
[2016-10-14] MEDS: FAMOTIDINE 20 MG TABLET PO SCH (09:03)
[2016-10-14 11:36] VITALS: BP 121/82
[2016-10-14] MEDS: ACETAMINOPHEN WITH CODEINE #3 TABLET PO PRN (11:45)
--- NOTE | 2016-10-14 13:56 | PDOC PROGRESS REPORT ---
Subjective-OB Subjective: Post Delivery Day: 26 year old. Denies any needs at this time awaiting psych consult s/p ghtn/ preeclampsia ff@u-1 mild lochia awaiting psych consult d/c after recommendation Physical Exam (OB) Vital Signs: Temp Pulse Resp BP Pulse Ox 98.4 F 98 18 121/82 99 10/14/16 11:35 10/14/16 11:35 10/14/16 11:35 10/14/16 11:35 10/14/16 11:35 Intake & Output 10/13/16 10/14/16 10/15/16 06:59 06:59 06:59 Intake Total 480 240 Balance 480 240 - PIH/Pre-Eclampsia DTR's: 1 + Clonus: Negative Headache: Absent Epigastric Pain: No Visual Changes: No - Lochia Lochia Amount: Scant < 10 ml Lochia Color: Rubra/Red - Abdomen Description: Soft, Round Hernia Present: No Fundal Description: Firm, Midline Fundal Height: u/u - u/2 Objective-Diagnostic Laboratory: 10/12/16 06:49 Assessment and Plan(PN) - Time Spent with Patient Smoking Education Provided: Over 3 minutes Medications reviewed and adjusted accordingly: Yes - Disposition Anticipated Discharge: Home
--- NOTE | 2016-10-14 14:41 | PSYCHOLOGICAL NOTE ---
Psych Note - Psych Note Psych Note: Attempted to consult patient; however, she was not in her room. RN determined that the patient and her SO dropped the baby off at the nursery and went to the parking lot reportedly to put together the car seat. Will track. Did have the opportunity to evaluate the patient later in the afternoon. Explored with patient any concerns she may have as well as her overall social and psychological history. Note, patient's SO was bedside and provided the majority of the information, despite be redirected to allow the patient to verbally respond. Patient did discuss a period of depression which she identified as a normal reaction after her brother was killed during a home invasion. Patient states this occurred a few years ago and was particularly upsetting to her due to her having sent a text message to him the night before his . She declined to clarify the content of the text message. She stated that during this period she willingly gave one child to the biological father, and the other child to her brother. Note, she plans to discharge to live with the brother and family who is raising her child in [place]. Patient does not disclose much more information and appeared to become defensive wanting to know the the reasons for the discussion. Patient did offer that she has undergone psychological testing via [facility], but denies that she engaged in any sort of outpatient services, to include vocational rehabilitation, or PSR which are two IDD services that particular agency is well known for providing. Patient denies any psychiatric pharmacological intervention. Patient denies any substance abuse history, despite documentation suggesting otherwise. When confronted with this, patient continued to deny substance abuse. Patient does deny any suicidal/homicidal ideations. Patient denies any history of suicide attempts, etc. Spoke with Flora at [facility] CPS intake who states there is a significant history with the patient and their department. She denies any current open cases. History suggests that the patient's children were placed with family members due to her instability, behavior/substance abuse (ETOH, pills, possibly heroin) , and neglect. Worker states it does not appear as though the department did not assume custody and it is unclear if this was when her children were placed with other family members. Worker reports the last CPS report was filed in 2014 for concerns over instability, drug use, and neglect. No further information was available. Reports for similar concerns dated back to 2010. Patient presented A&O. Mood was euthymic with normal affect. Patient denied suicidal/homicidal ideations, intent, plan, or means. Patient denied A/V H; delusions not noted. Thought processes were guarded and goal oriented towards discharge. Conversational speech was slow for prosody. Intellectual abilities were estimated within the lower average range. Attention and focus were fair. Insight was poor, judgment and impulse control seemed fair. Unspecified Depressive Disorder, per history Hx of Polysubstance Abuse Patient is psychiatrically cleared for discharge. At this time, she is not demonstrating any symptoms which would meet criteria for IVC, per the [id number]. Patient denies suicidal/homicidal ideations. Patient denies psychosis and does not present as though she is responding to internal stimuli. Given patient' s history, concerns for future episodes of substance abuse as the patient has not engaged in any formal psychiatric and or SA treatment, CPS was notified of pending discharge and has verbally agreed to follow. Patient was provided resources in order to follow up with outpatient services; however, she declined the offer for an appointment to be scheduled on her behalf and further stated she was not interested in professional counseling or evaluation. SO's mother was at the hospital and per SO, is extremely supportive. She was observed appropriate. I consulted with Dr. Vogel in regards to the care and management of this patient. Thank you kindly for this consultation.
--- NOTE | 2016-10-18 15:31 | PDOC DISCHARGE SUMMARY ---
Final Diagnosis Discharge Date: 10/14/16 - Final Diagnosis (1) Anemia Is this a current diagnosis for this admission?: Yes (2) Chronic hypertension in Is this a current diagnosis for this admission?: Yes (3) Delivery normal Is this a current diagnosis for this admission?: Yes (4) Late care Is this a current diagnosis for this admission?: Yes (5) Percocet use disorder, mild, abuse Is this a current diagnosis for this admission?: Yes (6) Uterine atony, , current hospitalization Is this a current diagnosis for this admission?: Yes Discharge Data - Discharge Medication Home Medications: Pnv No.122/Iron/Folic Acid [ Multi Tablet] 1 each PO DAILY #90 tablet Ferrous Sulfate [Feosol 325 mg Tablet] 325 mg PO BID #90 tablet 10/14/16 Ibuprofen [Motrin 800 mg Tablet] 800 mg PO Q8 #90 tablet 10/14/16 Reason(s) for Admission: Induction of Labor, Other - GHTN Procedures: NST Intrapartum Procedure(s): Spontaneous Vaginal Delivery - Data Baby 1 Male at 1 minute: 9 at 5 minutes: 9 Weight: 3.147 kg Home with Mother: Yes Complications: No - Diagnosis Test Laboratory: Temp Pulse Resp BP Pulse Ox 98.4 F 98 18 121/82 99 10/14/16 11:35 10/14/16 11:35 10/14/16 11:35 10/14/16 11:35 10/14/16 11:35 10/10/16 10/10/16 10/12/16 16:00 16:16 06:49 RBC 3.66 L 2.70 L Hgb 11.5 L 8.6 L D Hct 34.0 L 24.9 L Urine Opiates Screen NEGATIVE - Discharge information/Instructions Discharge Activity: Activity As Tolerated, Balance Activity w/Rest, No Lifting Over 10 Pounds, No Lifting/Push/Pulling, Non-Ambulatory Child, Pelvic Rest, Slowly Increase Activity, No tub bath Discharge Diet: Regular Disposition: HOME, SELF-CARE Follow up with: [facility] in: 4
== END 2016-10-14 18:49 | disposition home or self-care (01) | DRG 775 ==
LOC: LR 15:42 → 2S 10-11 16:33
PROVIDERS: ADMIT Obstetrics & Gynecology; ATTEND Obstetrics & Gynecology
PROC: 10E0XZZ Delivery of Products of Conception, External Approach (ICD-10-PCS; principal; 2016-10-11)
DX: O13.4 Gestational [pregnancy-induced] hypertension without significant proteinuria, complicating childbirth (principal); O14.94 Unspecified pre-eclampsia, complicating childbirth; O48.0 Post-term pregnancy; O99.324 Drug use complicating childbirth; F11.90 Opioid use, unspecified, uncomplicated; O69.1XX0 Labor and delivery complicated by cord around neck, with compression, not applicable or unspecified; O62.2 Other uterine inertia; O76 Abnormality in fetal heart rate and rhythm complicating labor and delivery; O99.334 Smoking (tobacco) complicating childbirth; F17.210 Nicotine dependence, cigarettes, uncomplicated; O75.89 Other specified complications of labor and delivery; O99.02 Anemia complicating childbirth; D50.9 Iron deficiency anemia, unspecified; J45.909 Unspecified asthma, uncomplicated; Z3A.40 40 weeks gestation of pregnancy; Z37.0 Single live birth; O09.33 Supervision of pregnancy with insufficient antenatal care, third trimester
CPT/HCPCS: 36415; 80307; 81001; 82803; 85025; 85027; 86592; 86850; 86900; 86901; 88307; J2590; J3490

== ENCOUNTER 2016-11-06 14:59 | Emergency (ER) | payer MEDICAID ==
--- NOTE | 2016-11-06 15:23 | ER Document Report ---
ED Medical Screen (RME) - General Time seen by provider: 15:22 Mode of Arrival: Ambulatory Information source: Patient TRAVEL OUTSIDE OF THE [place] IN LAST 30 DAYS: No - General Chief Complaint: Mouth Problem Stated Complaint: MOUTH PAIN Notes: 26-year-old female presents to ED for left pain. She states she has a stye in her left eye. She also has left upper and lower dental pain. She states both pains of been for 2-3 days. States she just gave on 10/11/2016 and is still bleeding from that. I have greeted and performed a rapid initial assessment of this patient. A comprehensive ED assessment and evaluation of the patient, analysis of test results and completion of medical decision making process will be conducted by an additional ED providers. (CAROLINA CHERRY) - Related Data Allergies/Adverse Reactions: iodine Allergy (Unknown, Verified 10/11/16 08:54) Past Medical History Pulmonary Medical History: Reports: Hx Asthma, Hx Bronchitis Renal/ Medical History: Reports: Hx Kidney Stones Past Surgical History: Reports: Hx Appendectomy, Hx Nose Surgery - nose reconstructed - Immunizations Immunizations up to date: Yes Hx Diphtheria, Pertussis, Tetanus Vaccination: Yes Doctor's Discharge - Discharge Clinical Impression: concern wisdom tooth is coming in Stye Qualifiers: Laterality: left Eyelid: lower Qualified Code(s): H00.015 - Hordeolum externum left lower eyelid Condition: Stable Disposition: HOME, SELF-CARE Additional Instructions: Sty Your examination reveals that you have a sty. This is an infection of a hair follicle in the eyelid. As the infection progresses, it forms an abscess along the edge of the eyelid. A sty causes a lot of swelling and tenderness. As the body fights the infection, a lump forms. The knot slowly goes away over a couple of weeks. Treatment includes applying warm compresses to the eye for 10 to 15 minutes every two or three hours. Usually, the infection will drain from the abscess spontaneously, however, some sties require surgical drainage. You may be given antibiotic eye drops to prevent the infection from spreading to the surface of the eye. If the doctor is concerned that the infection is severe, you may be given antibiotics by mouth or shot. Call the doctor at once if vision decreases, if swelling becomes severe, or if eye pain becomes severe. See the doctor for follow-up should you fail to improve as expected. concerns for wisdom teeth Prescriptions: Amoxicillin 500 mg PO BID #14 capsule Referrals: KIMBERLEY BAILEY MD [Primary Care Provider] - Follow up in 3-5 days (Also call your dentist for ongoing follow-up related concerns with wisdom teeth. Return for increasing worsening or new symptoms)
--- NOTE | 2016-11-06 18:09 | ER Document Report ---
ED Oral Problem - General Mode of Arrival: Ambulatory Information source: Patient TRAVEL OUTSIDE OF THE [place] IN LAST 30 DAYS: No - HPI Patient complains to provider of: Toothache, Other - sty to the left eye Onset: Other - 2-3 days ago Associated symptoms: Other - see above - General Chief Complaint: Mouth Problem Stated Complaint: MOUTH PAIN Notes: 26-year-old female presents to the ED complaining of a sty to the left eye and left-sided tooth pain that started 2-3 days ago. Patient states that she thinks that her wisdom teeth are coming in. Patient explains that she has a dentist she can follow-up with. (KAYDEN ROSEN) - Related Data Allergies/Adverse Reactions: iodine Allergy (Unknown, Verified 10/11/16 08:54) Past Medical History - General Information source: Patient - Social History Smoking Status: Current Every Day Smoker Frequency of alcohol use: None Drug Abuse: None Family History: Reviewed & Not Pertinent Patient has suicidal ideation: No Patient has homicidal ideation: No Pulmonary Medical History: Reports: Hx Asthma, Hx Bronchitis Renal/ Medical History: Reports: Hx Kidney Stones. Denies: Hx Peritoneal Dialysis Past Surgical History: Reports: Hx Appendectomy, Hx Nose Surgery - nose reconstructed - Immunizations Immunizations up to date: Yes Hx Diphtheria, Pertussis, Tetanus Vaccination: Yes Review of Systems - Review of Systems Constitutional: No symptoms reported EENT: See HPI, Other - Left sided mouth pain and sty to the left eye. Cardiovascular: No symptoms reported Respiratory: No symptoms reported Gastrointestinal: No symptoms reported Genitourinary: No symptoms reported Female Genitourinary: No symptoms reported Musculoskeletal: No symptoms reported Skin: No symptoms reported Hematologic/Lymphatic: No symptoms reported Neurological/Psychological: No symptoms reported -: Yes All other systems reviewed and negative Physical Exam - Vital signs Interpretation: Normal - General General appearance: Alert In distress: None - HEENT Head: Normocephalic, Atraumatic Eyes: Other - Sty to the medial aspect of the inferior left eye. No: Normal Extraocular movements intact: Yes Pupils: PERRL Mouth/Lips: Normal, Other - Appears that some teeth may be coming in, but there is no sign of dental abscess or drainage. - Respiratory Respiratory status: No respiratory distress Breath sounds: Normal - Cardiovascular Rhythm: Regular Heart sounds: Normal auscultation - Abdominal Inspection: Normal Distension: No distension Tenderness: Nontender - Back Back: Normal - Extremities General upper extremity: Normal inspection, Normal ROM General lower extremity: Normal inspection, Normal ROM - Neurological Neuro grossly intact: Yes Cognition: Normal Orientation: AAOx4 [place] Coma Scale Eye Opening: Spontaneous [place] Coma Scale Verbal: Oriented Jez Coma Scale Motor: Obeys Commands [place] Coma Scale Total: 15 Speech: Normal - Psychological Associated symptoms: Normal affect, Normal mood - Skin Skin Temperature: Warm Skin Moisture: Dry Skin Color: Normal Discharge - Discharge Clinical Impression: Hordeolum externum, concern wisdom tooth is coming in Condition: Stable Disposition: HOME, SELF-CARE Additional Instructions: Sty Your examination reveals that you have a sty. This is an infection of a hair follicle in the eyelid. As the infection progresses, it forms an abscess along the edge of the eyelid. A sty causes a lot of swelling and tenderness. As the body fights the infection, a lump forms. The knot slowly goes away over a couple of weeks. Treatment includes applying warm compresses to the eye for 10 to 15 minutes every two or three hours. Usually, the infection will drain from the abscess spontaneously, however, some sties require surgical drainage. You may be given antibiotic eye drops to prevent the infection from spreading to the surface of the eye. If the doctor is concerned that the infection is severe, you may be given antibiotics by mouth or shot. Call the doctor at once if vision decreases, if swelling becomes severe, or if eye pain becomes severe. See the doctor for follow-up should you fail to improve as expected. concerns for wisdom teeth Prescriptions: Amoxicillin 500 mg PO BID #14 capsule Referrals: KIMBERLEY BAILEY MD [Primary Care Provider] - Follow up in 3-5 days (Also call your dentist for ongoing follow-up related concerns with wisdom teeth. Return for increasing worsening or new symptoms) Scribe Documentation - Scribe Written by Bernardo:: Bernardo Sargent, 11/06/[id number] acting as scribe for :: Harjeet
[2016-11-06 18:25] VITALS: BP 112/76
== END 2016-11-06 18:15 | disposition home or self-care (01) ==
LOC: ER 14:59
DX: K08.89 Other specified disorders of teeth and supporting structures (principal); H00.015 Hordeolum externum left lower eyelid; J45.909 Unspecified asthma, uncomplicated; F17.200 Nicotine dependence, unspecified, uncomplicated
CPT/HCPCS: 99282

== ENCOUNTER 2017-03-07 21:23 | Emergency (ER) | payer SELFPAY ==
[2017-03-07 21:50] LABS: ABSOLUTE BASOPHILS # (AUTO) 0.1 10^3/uL (0.0-0.2); ABSOLUTE EOSINOPHILS # (AUTO) 0.3 10^3/uL (0.0-0.6); ABSOLUTE LYMPHOCYTES (AUTO) 2.6 10^3/uL (0.5-4.7); ABSOLUTE MONOCYTES (AUTO) 0.7 10^3/uL (0.1-1.4); ABSOLUTE NEUT (AUTO) 5.5 10^3/uL (1.7-8.2); BASOPHILS % (AUTO) 0.8 % (0-2); EOSINOPHILS % (AUTO) 3.7 % (0-6); HEMATOCRIT 41.4 % (36.0-47.0); HEMOGLOBIN 13.7 g/dL (12.0-15.5); HGB HCT DIFFERENCE -0.3; MEAN CORPUSCULAR HEMOGLOBIN 30.3 pg (27.0-33.4); MEAN CORPUSCULAR HGB CONC 33.1 g/dL (32.0-36.0); MEAN CORPUSCULAR VOLUME 92 fl (80-97); MONOCYTES % (AUTO) 7.9 % (3-13); RED BLOOD COUNT 4.52 10^6/uL (3.72-5.28); RED CELL DISTRIBUTION WIDTH 13.6 % (11.5-14.0); SEGMENTED NEUTROPHILS % (AUTO) 59.6 % (42-78); WHITE BLOOD COUNT 9.3 10^3/uL (4.0-10.5)
[2017-03-07 21:57] LABS: APPEARANCE,URINE SLIGHTLY-CLOUDY; BILIRUBIN,URINE NEGATIVE (NEGATIVE); GLUCOSE, URINE NEGATIVE (NEGATIVE); KETONES,URINE NEGATIVE (NEGATIVE); LEUKOCYTE ESTERASE,URINE SMALL (NEGATIVE); NITRITE,URINE POSITIVE (NEGATIVE); PROTEIN,URINE NEGATIVE (NEGATIVE); URINE SPECIFIC GRAVITY 1.019; UROBILINOGEN,URINE NEGATIVE mg/dL (<2.0)
[2017-03-07 22:08] LABS: URINE BARBITURATES SCREEN NEGATIVE; URINE METHADONE SCREEN NEGATIVE; URINE OPIATES LOW NEGATIVE; URINE PHENCYCLIDINE SCREEN NEGATIVE
[2017-03-07 22:10] LABS: ALANINE AMINOTRANSFERASE 24 U/L (9-52); ALBUMIN 4.4 g/dL (3.5-5.0); ALCOHOL < 10 mg/dL (NONE DETECTED); ALKALINE PHOSPHATASE 65 U/L (38-126); ANION GAP 11 (5-19); ASPARTATE AMINO TRANSFERASE 16 U/L (14-36); BILIRUBIN,DIRECT 0.3 mg/dL (0.0-0.4); BILIRUBIN,TOTAL 0.4 mg/dL (0.2-1.3); BLOOD UREA NITROGEN 20 mg/dL (7-20); CARBON DIOXIDE 26 mmol/L (22-30); CHLORIDE 101 mmol/L (98-107); CREATININE RESULT 0.69 mg/dL (0.52-1.25); GLUCOSE 91 mg/dL (75-110); POTASSIUM 4.4 mmol/L (3.6-5.0); SODIUM 137.9 mmol/L (137-145); TOTAL PROTEIN 7.6 g/dL (6.3-8.2)
--- NOTE | 2017-03-07 22:21 | RADIOLOGY REPORT (SQ) ---
EXAM DESCRIPTION: CT HEAD WITHOUT COMPLETED DATE/TIME: 03/07/2017 10:10 pm REASON FOR STUDY: headaches, new onset hearing voices COMPARISON: 05/02/2015. TECHNIQUE: Axial images acquired through the brain without intravenous contrast. Images reviewed wi th bone, brain and subdural windows. Images stored on PACS. All CT scanners at this facility use dose modulation, iterative reconstruction, and/or weight based d osing when appropriate to reduce radiation dose to as low as reasonably achievable (ALARA). [facility]: Dose Right [facility]: CareDose [facility]: Dose Right [facility]: Teradose 4D [facility]: [employer] RADIATION DOSE: Up-to-date CT equipment and radiation dose reduction techniques were employed. CTDIv ol: 64.6 mGy. DLP: 1163 mGy-cm. mGy. LIMITATIONS: None. FINDINGS: VENTRICLES: Normal size and contour. CEREBRUM: No masses. No hemorrhage. No midline shift. Normal fallon/white matter differentiation. N o evidence for acute infarction. CEREBELLUM: No masses. No hemorrhage. No alteration of density. No evidence for acute infarction. EXTRAAXIAL SPACES: No fluid collections. No masses. ORBITS AND GLOBE: No intra- or extraconal masses. Normal contour of globe without masses. CALVARIUM: No fracture. PARANASAL SINUSES: No fluid or mucosal thickening. SOFT TISSUES: No mass or hematoma. OTHER: No other significant finding. IMPRESSION: NORMAL BRAIN CT WITHOUT CONTRAST. TECHNICAL DOCUMENTATION: JOB ID: [id number] Quality ID # [id number]: Final reports with documentation of one or more dose reduction techniques (e.g., Au tomated exposure control, adjustment of the mA and/or kV according to patient size, use of iterative reconstruction technique) 2010 [employer]- All Rights Reserved
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
[2017-03-07] MEDS ORDERED: HALOPERIDOL LACTATE INJ 5 MG/1 ML VIAL IM ONE (22:57)
--- NOTE | 2017-03-08 09:22 | ER Document Report ---
Doctor's Note Notes: 03/08/17 09:21 I have evaluated this pt. this am and she has no c/o at this time. She feels all of her needs are being met and her physcial exam is normal. She is awaiting disposition per mental health.
--- NOTE | 2017-03-08 10:13 | EKG REPORT ---
SEVERITY:- BORDERLINE ECG - SINUS RHYTHM EARLY TRANSITION : Confirmed by: Robi Gr MD 08-Mar-2017 10:12:28
[2017-03-08] MEDS ORDERED: ACETAMINOPHEN 325 MG TABLET PO ONE (12:38)
[2017-03-08] MEDS ORDERED: OLANZAPINE INJ/PF 10 MG SDV IM ONE (12:56)
[2017-03-08] MEDS ORDERED: HALOPERIDOL 5 MG TABLET PO ONE (12:58)
[2017-03-08] MEDS ORDERED: HALOPERIDOL LACTATE INJ 5 MG/1 ML VIAL IM SCH (13:00)
[2017-03-08] MEDS ORDERED: HALOPERIDOL LACTATE INJ 5 MG/1 ML VIAL IM PRN (13:28)
[2017-03-08] MEDS ORDERED: DIVALPROEX SODIUM 500 MG TAB.SR.24H PO SCH (18:00)
[2017-03-08] MEDS ORDERED: BENZTROPINE MESYLATE 1 MG TABLET PO SCH (22:00)
[2017-03-08] MEDS ORDERED: OLANZAPINE 5 MG TABLET PO SCH (22:00)
[2017-03-08 23:01] VITALS: BP 104/63
== END 2017-03-08 23:08 ==
LOC: ER 21:23
DX: R44.0 Auditory hallucinations (principal); R51 Headache; F31.2 Bipolar disorder, current episode manic severe with psychotic features; F17.200 Nicotine dependence, unspecified, uncomplicated
CPT/HCPCS: 93005; 99285; 96372; 36415; 80307 ×4; 85025; 81025; 80053; 81001; 70450; 93010; J1630

== ENCOUNTER 2017-04-06 17:56 | Emergency (ER) | payer SELFPAY ==
[2017-04-06] MEDS ORDERED: KETOROLAC TROMETHAMINE 60 MG/2 ML SDV IM ONE (18:46)
--- NOTE | 2017-04-06 18:49 | ER Document Report ---
ED Medical Screen (RME) - General Chief Complaint: Neck Problem Stated Complaint: NECK PAIN Time Seen by Provider: 04/06/17 18:46 Mode of Arrival: Ambulatory Information source: Patient TRAVEL OUTSIDE OF THE [place] IN LAST 30 DAYS: No - HPI Patient complains to provider of: neck pain Onset: Yesterday - pt. states she has chronic neck pain but has had exacerbation of pain in the last 1-2 days. Denies trauma, radiation down arms - Related Data Allergies/Adverse Reactions: iodine Allergy (Unknown, Verified 10/11/16 08:54) Past Medical History Pulmonary Medical History: Reports: Hx Asthma, Hx Bronchitis Renal/ Medical History: Reports: Hx Kidney Stones. Denies: Hx Peritoneal Dialysis Past Surgical History: Reports: Hx Appendectomy, Hx Nose Surgery - nose reconstructed - Immunizations Immunizations up to date: Yes Hx Diphtheria, Pertussis, Tetanus Vaccination: Yes Physical Exam - Vital signs Vitals: Temp Pulse Resp BP Pulse Ox 98.4 F 90 18 134/83 H 97 04/06/17 18:05 04/06/17 18:05 04/06/17 18:05 04/06/17 18:05 04/06/17 18:05 Course - Vital Signs Vital signs: Temp Pulse Resp BP Pulse Ox 98.4 F 90 18 134/83 H 97 04/06/17 18:05 04/06/17 18:05 04/06/17 18:05 04/06/17 18:05 04/06/17 18:05
--- NOTE | 2017-04-06 19:52 | RADIOLOGY REPORT (SQ) ---
EXAM DESCRIPTION: CERV SP 3 VIEW OR LESS COMPLETED DATE/TIME: 04/06/2017 7:06 pm REASON FOR STUDY: neck pain COMPARISON: None. NUMBER OF VIEWS: Three views. TECHNIQUE: AP, lateral and odontoid radiographic images acquired of the cervical spine. LIMITATIONS: None. FINDINGS: MINERALIZATION: Normal. ALIGNMENT: Anatomic. VERTEBRAE: Vertebral bodies of normal height. DISCS: No significant disc space narrowing. No large osteophytes. HARDWARE: None in the spine. SOFT TISSUES: No masses or calcifications. Lung apices clear. OTHER: No other significant finding. IMPRESSION: NO SIGNIFICANT RADIOGRAPHIC FINDING IN THE CERVICAL SPINE. TECHNICAL DOCUMENTATION: JOB ID: [id number] [employer]- All Rights Reserved
[2017-04-06] MEDS ORDERED: CYCLOBENZAPRINE HCL 10 MG TABLET PO ONE (20:01)
[2017-04-06] MEDS ORDERED: IBUPROFEN 800 MG TABLET PO ONE (20:01)
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
[2017-04-06 20:32] VITALS: BP 127/77
== END 2017-04-06 20:28 | disposition home or self-care (01) ==
LOC: ER 17:56
DX: M62.838 Other muscle spasm (principal); M54.2 Cervicalgia; F17.200 Nicotine dependence, unspecified, uncomplicated; J45.909 Unspecified asthma, uncomplicated
CPT/HCPCS: 99283; 72040; J1885

== ENCOUNTER 2017-05-20 18:22 | Emergency (ER) | payer MEDICAID ==
[2017-05-20] MEDS ORDERED: IBUPROFEN 800 MG TABLET PO ONE (21:15)
[2017-05-20] MEDS ORDERED: LIDOCAINE 5% (700 MG) TRANSDERMAL ADH..PATCH TP ONE (21:15)
[2017-05-20] MEDS ORDERED: METHOCARBAMOL 500 MG TABLET PO ONE (21:15)
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
[2017-05-20] MEDS ORDERED: KETOROLAC TROMETHAMINE 60 MG/2 ML SDV IM ONE (21:29)
[2017-05-20 21:41] VITALS: BP 132/90
== END 2017-05-20 21:41 | disposition home or self-care (01) ==
LOC: ER 18:22
DX: G89.29 Other chronic pain (principal); M54.2 Cervicalgia; V49.9XXS Car occupant (driver) (passenger) injured in unspecified traffic accident, sequela; T14.8 Other injury of unspecified body region; X58.XXXA Exposure to other specified factors, initial encounter; R11.0 Nausea; F17.200 Nicotine dependence, unspecified, uncomplicated; J45.909 Unspecified asthma, uncomplicated
CPT/HCPCS: 99283; 96372; J1885; J3490 ×2

== ENCOUNTER 2017-06-06 18:35 | Emergency (ER) | payer SELFPAY ==
[2017-06-06] MEDS ORDERED: ACETAMINOPHEN 325 MG TABLET PO ONE (18:40)
[2017-06-06] MEDS ORDERED: KETOROLAC TROMETHAMINE 60 MG/2 ML SDV IM ONE (19:55)
[2017-06-06] MEDS ORDERED: CYCLOBENZAPRINE HCL 10 MG TABLET PO ONE (20:47)
[2017-06-06 20:48] LABS: APPEARANCE,URINE CLOUDY; BILIRUBIN,URINE NEGATIVE (NEGATIVE); GLUCOSE, URINE NEGATIVE (NEGATIVE); KETONES,URINE NEGATIVE (NEGATIVE); LEUKOCYTE ESTERASE,URINE SMALL (NEGATIVE); NITRITE,URINE NEGATIVE (NEGATIVE); PROTEIN,URINE 30 mg/dL (NEGATIVE); URINE SPECIFIC GRAVITY 1.039; UROBILINOGEN,URINE NEGATIVE mg/dL (<2.0)
[2017-06-06] MEDS ORDERED: NORMAL SALINE 1000 ML 1,000 ML IV ONE (20:54)
--- NOTE | 2017-06-06 21:39 | ER Document Report ---
HPI - HPI Patient complains to provider of: Neck pain Onset: This morning Onset/Duration: Intermittent Quality of pain: Throbbing Severity: Severe Pain Level: 5 Context: Patient says she has been having spasms in her neck today. States she has had this before. Denies injury. Also complains that her urine smells bad. Associated Symptoms: None Exacerbated by: Movement Relieved by: Denies Similar symptoms previously: Yes Recently seen / treated by doctor: No - ROS ROS below otherwise negative: Yes Systems Reviewed and Negative: Yes All other systems reviewed and negative - CONSTITUTIONAL Constitutional: DENIES: Fever - EENT EENT: DENIES: Congestion - NEURO Neurology: REPORTS: Headache - CARDIOVASCULAR Cardiovascular: DENIES: Chest pain - RESPIRATORY Respiratory: DENIES: Trouble Breathing - GASTROINTESTINAL Gastrointestinal: DENIES: Abdominal Pain - URINARY Notes: Urine smells bad but denies dysuria or urinary frequency. - MUSCULOSKELETAL Musculoskeletal: REPORTS: Neck Pain - DERM Skin Color: Normal Past Medical History - General Information source: Patient - Social History Smoking Status: Current Every Day Smoker Frequency of alcohol use: None Drug Abuse: None Lives with: Family Family History: Reviewed & Not Pertinent Patient has suicidal ideation: No Patient has homicidal ideation: No Pulmonary Medical History: Reports: Hx Asthma, Hx Bronchitis Renal/ Medical History: Reports: Hx Kidney Stones Psychiatric Medical History: Reports: Hx Schizophrenia Past Surgical History: Reports: Hx Appendectomy, Hx Nose Surgery - nose reconstructed - Immunizations Immunizations up to date: Yes Hx Diphtheria, Pertussis, Tetanus Vaccination: Yes Vertical Provider Document - CONSTITUTIONAL Agree With Documented VS: Yes Exam Limitations: No Limitations General Appearance: WD/WN, No Apparent Distress - INFECTION CONTROL TRAVEL OUTSIDE OF THE [place] IN LAST 30 DAYS: No - HEENT HEENT: Atraumatic, Normal ENT Exam, Normocephalic Notes: Lips dry - NECK Notes: Tender bilateral carpal cervical muscles, mild C-spine tenderness. She has full range of motion to neck with discomfort voiced. - RESPIRATORY Respiratory: Breath Sounds Normal, No Respiratory Distress O2 Sat by Pulse Oximetry: 99 - CARDIOVASCULAR Cardiovascular: Regular Rate, Regular Rhythm - GI/ABDOMEN Gastrointestinal: Abdomen Soft, Abdomen Non-Tender - MUSCULOSKELETAL/EXTREMETIES Musculoskeletal/Extremeties: MAEW - NEURO Level of Consciousness: Awake, Alert, Appropriate - DERM Integumentary: Warm, Dry Course - Re-evaluation Re-evalutation: 06/06/17 22:09 Patient informed that she was dehydrated, and IV fluids will be given. Patient agrees with plan. - Vital Signs Vital signs: Temp Pulse Resp BP Pulse Ox 98.1 F 95 20 132/88 H 99 06/06/17 18:39 06/06/17 18:39 06/06/17 18:39 06/06/17 18:39 06/06/17 18:39 - Laboratory Laboratory results interpreted by me: 06/06/17 20:03 Urine Protein 30 H Ur Leukocyte Esterase SMALL H Urine Ascorbic Acid 40 H Discharge - Discharge Clinical Impression: Neck pain, Dehydration, mild Condition: Good Disposition: HOME, SELF-CARE Additional Instructions: Muscle relaxers and motrin as prescribed Ice or heat packs to neck Push fluids as you were dehydrated today Follow-up with your doctor Friday for recheck Return as needed Prescriptions: Cyclobenzaprine HCl [Flexeril 5 mg Tablet] 5 mg PO TID #15 tablet Ibuprofen 800 mg PO TID PRN #20 tablet PRN Reason: Forms: Return to Work
[2017-06-06] MEDS ORDERED: HYDROCODONE/ACETAMINOPHEN 5-325 MG 6 TAB/DSPK PO PRN (22:13)
[2017-06-06 22:54] VITALS: BP 122/79
== END 2017-06-06 22:55 | disposition home or self-care (01) ==
LOC: ER 18:35
DX: M54.2 Cervicalgia (principal); E86.0 Dehydration; F17.200 Nicotine dependence, unspecified, uncomplicated; Z87.442 Personal history of urinary calculi
CPT/HCPCS: 99283; 96372; 96360; 87086; 81025; 81001; J1885; J7030

== ENCOUNTER 2017-06-17 14:52 | Emergency (ER) | payer SELFPAY ==
[2017-06-17 14:58] VITALS: BP 125/97
--- NOTE | 2017-06-17 15:56 | ER Document Report ---
HPI - HPI Patient complains to provider of: Right ankle pain Onset: Just prior to arrival Onset/Duration: Sudden Quality of pain: Throbbing Severity: Severe Pain Level: 5 Context: Patient states she fell off a step injuring her right ankle and right knee. Associated Symptoms: None Exacerbated by: Standing, Movement, Walking Relieved by: Denies Similar symptoms previously: Yes Recently seen / treated by doctor: No - ROS ROS below otherwise negative: Yes Systems Reviewed and Negative: Yes All other systems reviewed and negative - CONSTITUTIONAL Constitutional: DENIES: Fever - EENT EENT: DENIES: Congestion - NEURO Neurology: DENIES: Headache - CARDIOVASCULAR Cardiovascular: DENIES: Chest pain - RESPIRATORY Respiratory: DENIES: Trouble Breathing - GASTROINTESTINAL Gastrointestinal: DENIES: Abdominal Pain - URINARY Urinary: DENIES: Dysuria - MUSCULOSKELETAL Musculoskeletal: REPORTS: Extremity pain - right ankle - DERM Skin Color: Normal Past Medical History - General Information source: Patient - Social History Smoking Status: Current Every Day Smoker Cigarette use (# per day): Yes Frequency of alcohol use: None Drug Abuse: None Lives with: Family Family History: Reviewed & Not Pertinent Pulmonary Medical History: Reports: Hx Asthma, Hx Bronchitis Renal/ Medical History: Reports: Hx Kidney Stones Psychiatric Medical History: Reports: Hx Schizophrenia Past Surgical History: Reports: Hx Appendectomy, Hx Nose Surgery - nose reconstructed - Immunizations Immunizations up to date: Yes Hx Diphtheria, Pertussis, Tetanus Vaccination: Yes Vertical Provider Document - CONSTITUTIONAL Agree With Documented VS: Yes Exam Limitations: No Limitations General Appearance: WD/WN, Mild Distress - INFECTION CONTROL TRAVEL OUTSIDE OF THE [place] IN LAST 30 DAYS: No - HEENT HEENT: Atraumatic, Normocephalic - RESPIRATORY Respiratory: Breath Sounds Normal, No Respiratory Distress O2 Sat by Pulse Oximetry: 98 - CARDIOVASCULAR Cardiovascular: Regular Rate, Regular Rhythm - MUSCULOSKELETAL/EXTREMETIES Musculoskeletal/Extremeties: Tender, Edema - Right lateral ankle. Notes: Neurovascular and sensation intact to right foot - NEURO Level of Consciousness: Awake, Alert, Appropriate - DERM Integumentary: Warm, Dry Course - Re-evaluation Re-evalutation: 06/17/17 16:34 X-rays were negative for fracture but did show a joint effusion and soft tissue swelling over the right lateral malleolus. This was discussed with the patient. - Vital Signs Vital signs: Temp Pulse Resp BP Pulse Ox 97.6 F 111 H 125/97 H 98 06/17/17 14:57 06/17/17 14:57 06/17/17 14:57 06/17/17 14:57 Procedures - Immobilization Right Ankle Pre-Proc Neuro Vasc Exam: Normal Immobilizer type: Ankle stirrup, Crutches Performed by: RN Post-Proc Neuro Vasc Exam: Normal Alignment checked and good: Yes Discharge - Discharge Clinical Impression: Joint effusion Moderate right ankle sprain Qualifiers: Encounter type: initial encounter Qualified Code(s): S93.401A - Sprain of unspecified ligament of right ankle, initial encounter Condition: Good Disposition: HOME, SELF-CARE Instructions: Ankle Stirrup Splint ([facility]), Use of Crutches ([facility]), Ice & Elevation ([facility]), Sprained Ankle ([facility]) Additional Instructions: Ice and elevate ankle Ibuprofen 3 times a day for pain, tramadol as needed Follow-up with your doctor if not better in 1 week Return as needed Prescriptions: Ibuprofen 800 mg PO PRN PRN #15 tablet PRN Reason: Tramadol HCl 50 mg PO PRN PRN #15 tablet PRN Reason: Forms: Return to School
[2017-06-17] MEDS ORDERED: HYDROCODONE/ACETAMINOPHEN 5-325 MG TABLET PO ONE (16:01)
--- NOTE | 2017-06-17 16:14 | RADIOLOGY REPORT (SQ) ---
EXAM DESCRIPTION: ANKLE RIGHT COMPLETE COMPLETED DATE/TIME: 06/17/2017 3:59 pm REASON FOR STUDY: pain after fall COMPARISON: None. NUMBER OF VIEWS: Three views. TECHNIQUE: AP, lateral, and oblique radiographic images acquired of the right ankle. LIMITATIONS: None. FINDINGS: MINERALIZATION: Normal. BONES: No acute fracture or dislocation. No worrisome bone lesions. JOINTS: Small tibiotalar joint effusion SOFT TISSUES: Diffuse lateral soft tissue swelling. No radiopaque foreign body or soft tissue gas OTHER: No other significant finding. IMPRESSION: Joint effusion with lateral malleolar soft tissue swelling. No acute fracture is identi fied TECHNICAL DOCUMENTATION: JOB ID: [id number]- All Rights Reserved
== END 2017-06-17 16:58 | disposition home or self-care (01) ==
LOC: ER 14:52
DX: S93.401A Sprain of unspecified ligament of right ankle, initial encounter (principal); M25.571 Pain in right ankle and joints of right foot; W10.9XXA Fall (on) (from) unspecified stairs and steps, initial encounter; F17.210 Nicotine dependence, cigarettes, uncomplicated; J45.909 Unspecified asthma, uncomplicated
CPT/HCPCS: 99283; 73610; L4350

== ENCOUNTER 2017-11-02 13:06 | Emergency (ER) | payer SELFPAY ==
[2017-11-02 13:19] VITALS: BP 116/80
--- NOTE | 2017-11-02 14:04 | ER Document Report ---
ED Medical Screen (RME) - General Chief Complaint: Psych Problem Stated Complaint: REFILL ON MEDS Time Seen by Provider: 11/02/17 14:02 Mode of Arrival: Ambulatory Information source: Patient Notes: This is a 27-year-old female with a history of bipolar affective disorder with psychotic features who presents to the emergency room wanting her Haldol. Patient states she is increasingly become angry. She does appear very emotionally labile in triage. She does not have any psychiatric follow-up. She states she has been to outpatient psychiatrists in the past but is not far followed currently. She denies any hallucinations. She denies any intentions to kill herself but she is getting increasingly angry at people. She states that she "just wants her fucking medicine". TRAVEL OUTSIDE OF THE [place] IN LAST 30 DAYS: No - Related Data Allergies/Adverse Reactions: iodine Allergy (Unknown, Verified 11/02/17 13:11) Past Medical History - Social History Chew tobacco use (# tins/day): No Frequency of alcohol use: None Drug Abuse: None Pulmonary Medical History: Reports: Hx Asthma, Hx Bronchitis Renal/ Medical History: Reports: Hx Kidney Stones. Denies: Hx Peritoneal Dialysis Psychiatric Medical History: Reports: Hx Schizophrenia Past Surgical History: Reports: Hx Appendectomy, Hx Nose Surgery - nose reconstructed - Immunizations Immunizations up to date: Yes Hx Diphtheria, Pertussis, Tetanus Vaccination: Yes Physical Exam - Vital signs Vitals: Temp Pulse Resp BP Pulse Ox 98.0 F 107 H 20 116/80 98 11/02/17 13:18 11/02/17 13:18 11/02/17 13:18 11/02/17 13:18 11/02/17 13:18 Course - Vital Signs Vital signs: Temp Pulse Resp BP Pulse Ox 98.0 F 107 H 20 116/80 98 11/02/17 13:18 11/02/17 13:18 11/02/17 13:18 11/02/17 13:18 11/02/17 13:18
[2017-11-02] MEDS ORDERED: HALOPERIDOL LACTATE INJ 5 MG/1 ML VIAL IM ONE (14:06)
[2017-11-02] MEDS ORDERED: BENZTROPINE MESYLATE 1 MG TABLET PO ONE (14:06)
[2017-11-02 15:34] LABS: ABSOLUTE BASOPHILS # (AUTO) 0.1 10^3/uL (0.0-0.2); ABSOLUTE EOSINOPHILS # (AUTO) 0.3 10^3/uL (0.0-0.6); ABSOLUTE LYMPHOCYTES (AUTO) 2.3 10^3/uL (0.5-4.7); ABSOLUTE MONOCYTES (AUTO) 0.8 10^3/uL (0.1-1.4); ABSOLUTE NEUT (AUTO) 6.5 10^3/uL (1.7-8.2); BASOPHILS % (AUTO) 0.7 % (0-2); EOSINOPHILS % (AUTO) 3.4 % (0-6); HEMATOCRIT 43.5 % (36.0-47.0); HEMOGLOBIN 15.1 g/dL (12.0-15.5); LYMPHOCYTES % (AUTO) 22.8 % (13-45); MEAN CORPUSCULAR HEMOGLOBIN 30.9 pg (27.0-33.4); MEAN CORPUSCULAR HGB CONC 34.7 g/dL (32.0-36.0); MEAN CORPUSCULAR VOLUME 89 fl (80-97); MONOCYTES % (AUTO) 7.9 % (3-13); PLATELET COUNT 395 10^3/uL (150-450); RED BLOOD COUNT 4.89 10^6/uL (3.72-5.28); RED CELL DISTRIBUTION WIDTH 13.6 % (11.5-14.0); SEGMENTED NEUTROPHILS % (AUTO) 65.2 % (42-78); TOTAL CELLS COUNTED % (AUTO) 100 %
[2017-11-02 15:52] LABS: ACETAMINOPHEN < 10 ug/mL (10-30); ALANINE AMINOTRANSFERASE 19 U/L (9-52); ALBUMIN 4.9 g/dL (3.5-5.0); ALCOHOL < 10 mg/dL (NONE DETECTED); ALKALINE PHOSPHATASE 62 U/L (38-126); ANION GAP 12 (5-19); ASPARTATE AMINO TRANSFERASE 17 U/L (14-36); BILIRUBIN,DIRECT 0.1 mg/dL (0.0-0.4); BILIRUBIN,TOTAL 0.7 mg/dL (0.2-1.3); BLOOD UREA NITROGEN 19 mg/dL (7-20); CALCIUM 10.4 mg/dL (8.4-10.2); CARBON DIOXIDE 27 mmol/L (22-30); CHLORIDE 100 mmol/L (98-107); GLUCOSE 90 mg/dL (75-110); POTASSIUM 4.7 mmol/L (3.6-5.0); SALICYLATE < 1.0 mg/dL (2.0-20.0); SODIUM 138.8 mmol/L (137-145); TOTAL PROTEIN 7.8 g/dL (6.3-8.2)
--- NOTE | 2017-11-02 17:29 | PSYCHOLOGICAL NOTE ---
Psych Note - Psych Note Psych Note: Reason for consult: Patient reports she ran out of medications Time of consult 5:30 PM time of disposition 6:00 PM Patient is a 27-year-old female. Patient reports she came in because of "schizophrenia". Patient reports she was allegedly seeing things but does not see anything as of right now because she was given medications at the hospital. Patient reports she came into the emergency room for medicine. Clinician observed patient appears lethargic and is unable to answer assessment questions and asked clinician to leave. Per patient's nurse patient left AGAINST MEDICAL ADVICE because she became upset with the physician asking questions and then returned after 4 reportedly had been walking around pod 5 in the emergency room. Diagnosis: ( Per Hx) 296.44 (F31.2) bipolar 1 disorder Impression/ Plan: Patient is psychiatrically cleared for discharge. Recommendation for patient to follow-up with primary care provider. Consulted with Dr. Vogel regarding the management and care of patient.
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
[2017-11-02 20:35] LABS: APPEARANCE,URINE SLIGHTLY HAZY; BILIRUBIN,URINE NEGATIVE (NEGATIVE); COLOR,URINE YELLOW; GLUCOSE, URINE NEGATIVE (NEGATIVE); KETONES,URINE NEGATIVE (NEGATIVE); LEUKOCYTE ESTERASE,URINE TRACE (NEGATIVE); NITRITE,URINE NEGATIVE (NEGATIVE); PROTEIN,URINE NEGATIVE (NEGATIVE); URINE SPECIFIC GRAVITY 1.025
[2017-11-02 20:43] LABS: URINE AMPHETAMINES SCREEN UNCONFIRMED POSITIVE; URINE BARBITURATES SCREEN NEGATIVE; URINE BENZODIAZEPINES SCREEN NEGATIVE; URINE COCAINE SCREEN NEGATIVE; URINE MARIJUANA (THC) SCREEN NEGATIVE; URINE METHADONE SCREEN NEGATIVE; URINE PHENCYCLIDINE SCREEN NEGATIVE
--- NOTE | 2017-11-02 21:46 | EKG REPORT ---
SEVERITY:- BORDERLINE ECG - SINUS RHYTHM PROBABLE LEFT ATRIAL ABNORMALITY BORDERLINE RIGHT AXIS DEVIATION : Confirmed by: Dorcas Fagan 02-Nov-2017 21:45:52
== END 2017-11-02 19:53 | disposition home or self-care (01) ==
LOC: ER 13:06
DX: R45.4 Irritability and anger (principal); F20.9 Schizophrenia, unspecified; F31.2 Bipolar disorder, current episode manic severe with psychotic features; F17.210 Nicotine dependence, cigarettes, uncomplicated
CPT/HCPCS: 93005; 99285; 96372; 36415; 80307 ×4; 85025; 80053; 81001; 93010; J1630